=== PATIENT | female | born 1940 | race Caucasian/White ===

== ENCOUNTER 2021-12-19 05:42 | Inpatient (IN) ==
[2021-12-19] MEDS ORDERED: 0.9 % SODIUM CHLORIDE 1,000 ML IV ONE ×2 (05:49→06:06)
--- NOTE | 2021-12-19 06:16 | Emergency Department Note ---
Weakness HPI General Chief complaint: Weakness Stated complaint: weakness/COVID+ Time Seen by Provider: 12/19/21 05:45 Source: patient, family and EMS Mode of arrival: EMS Limitations: no limitations History of Present Illness HPI Narrative: Narrative: Patient presents ED via EMS with complaints of worsening weakness over the last 24 hours. Patient was diagnosed with COVID-19 4 days ago. Since that time she has been on Paxlovid that was prescribed by her PCP. states that she has been eating and drinking less over the last 2 days. Initially she was able to ambulate about the house with her walker which is her baseline but yesterday afternoon she was so weak that she could not even get up out of bed to go to the restroom due to weakness in her legs. He denies fever, chills, nausea, vomiting, abdominal pain, diarrhea, constipation, dysuria, hematuria, urinary frequency, cardiac chest pain, heart palpitation, shortness of breath, sputum production. Patient does report a cough. She states she does not feel as strong. says that she does not seem like her self she is very slow to respond and takes a while to answer questions. He states she does answer them correctly but she is just so slow and weak. denies any other alleviating or aggravating factors. Patient that he has not been given any medication such as Tylenol or ibuprofen as she has not needed it. Related Data Home Medications Medication Instructions Recorded Confirmed calcium carbonate-vitamin D3 600 1 tab PO DAILY 01/26/17 08/10/20 mg-125 unit tablet hydrochlorothiazide 12.5 mg tablet 12.5 mg PO QAM 08/10/20 08/10/20 losartan 25 mg tablet 25 mg PO QDAY 08/10/20 08/10/20 Previous Rx's Medication Instructions Recorded potassium chloride 10 mEq 10 meq PO QDAY #90 tabs 08/24/17 tablet,extended release(part/cryst) levothyroxine 50 mcg tablet 50 mcg PO QDAY #90 tabs 03/01/18 diltiazem HCl 240 mg capsule,24 240 mg PO QDAY hypertension #90 03/04/18 hr,extended release caps Allergies Allergy/AdvReac Type Severity Reaction Status Date / Time clindamycin AdvReac Unknown Unknown Verified 09/27/21 18:08 Review of Systems ROS ROS Narrative: Narrative: All systems ED: reviewed and negative except as stated. PFSH Narrative Patient History Narrative: Narrative: Medical/Surgical/Family History All Active Problems (Updated 12/19/21 @ 07:34 by Tahir Blakely DO) Hypertensive urgency (Acute) Acute hyponatremia (Acute) Acute hyponatremia (Acute) Acute hypokalemia (Acute) Acute alteration in mental status (Acute) Generalized weakness (Acute) COVID-19 virus infection (Acute) Acute dehydration (Acute) UTI (urinary tract infection) (Acute) Angular cheilitis (Acute) Seborrheic keratosis (Chronic) Edema extremities (Chronic) Strain of foot, right (Acute) Stucco keratoses (Chronic) Actinic keratoses (Acute) Hypokalemia with normal acid-base balance (Acute) Hypokalemia due to loss of potassium (Acute) Edema (Chronic) Folliculitis (Acute) Fibroma of left foot (Chronic) Sleep apnea (Chronic) Hypothyroidism, acquired (Chronic) Hypertension, essential (Chronic) Hyperlipidemia (Chronic) Malignant neoplasm (Chronic) Medical History Acute sinusitis hx of Malignant neoplasm of maxillary sinus 1997, sinus surgery fall 2016 Closed tibial fracture 08/11/14-Rama Mooney, PRESSING MACHINE TENDER-Tibial Plateau fracture Epistaxis 07/29/14-Recurrent ER Visits Epistaxis Epistaxis Fibroma of left lower leg heat, gentle stretch, leave alone Fracture of metatarsal bone, closed 08/11/14-Rama Mooney, PRESSING MACHINE TENDER-5th Metatarsal fracture Hyperlipidemia Hypertension, essential Hypothyroidism, acquired 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 and got a clear check up this year, as recorded on 03/11/09 Osteoarthrosis Hand Sleep apnea UTI (urinary tract infection) Family History mother Malignant neoplasm of cervix daughter Depression Migraine sister Diabetes mellitus Fibromyalgia Cardiac disease Obesity Social History Alcohol Intake Frequency: does not drink Substance Use: does not use Exam Narrative Narrative: Narrative: General Limitations: no limitations General appearance: Present alert and lethargic ENT ENT: Present mucous membranes dry Neck Neck: Present full ROM and meningismus Respiratory Respiratory: Present normal lung sounds bilaterally; Absent respiratory distress, rales/crackles, wheezes, stridor or accessory muscle use Cardiovascular Cardiovascular: Present regular rate and normal rhythm Adbominal Abdominal: Present soft; Absent tenderness Extremities Extremities: Present normal capillary refill Neurological Neurological: Present oriented X3 and other (Slow but appropriate responses) Psychiatric Psychiatric: Present flat affect and poor eye contact Skin Skin: Present warm (WNL) and intact Course Course Course Narrative: Patient was evaluated for generalized weakness and some altered mental status. CT of the head was obtained with no acute findings. UA was unremarkable. All patient was alert and answer questions appropriately she did have slow responses and patient's states that that is not her baseline. Labs revealed that patient was severely hyponatremic with a sodium level 105. She was also hypokalemic and clinically dehydrated. She was bolused 1 L of fluids and iv potassium. Due to patient's weakness Marquez catheter was inserted. EKG was unremarkable. Chest x-ray is unremarkable. Case discussed with hospitalist who has graciously accepted patient to the hospital. Plan discussed with pt and her who expressed verbal understanding and aggreement of plan. Reevaluation(s) Reevaluation #1: Patient remains hemodynamically stable. No new complaints at this time Time: 06:50 Consultations Consultation #1: Case discussed with hospitalist who has agreed to admit the patient Time: 08:12 Vital Signs Vital signs: Vital Signs Temperature 98.2 F 12/19/21 05:44 Pulse Rate 69 12/19/21 05:44 Respiratory Rate 17 12/19/21 05:44 Blood Pressure 170/79 12/19/21 05:44 Pulse Oximetry (%) 98 12/19/21 05:44 Oxygen Delivery Method 12/19/21 05:44 Temperature 98.2 F 12/19/21 05:44 Pulse Rate 66 12/19/21 07:38 Respiratory Rate 17 12/19/21 05:44 Blood Pressure 155/78 12/19/21 07:38 Pulse Oximetry (%) 96 12/19/21 07:38 Oxygen Delivery Method 12/19/21 05:44 MDM MDM Narrative Medical decision making narrative: Narrative: Sepsis Sepsis Identified: No Differential Diagnosis Differential Diagnosis: Generalized weakness, COVID-19 infection Medical Records Medical records reviewed: Yes I reviewed the patient's medical records. Lab Data Lab results reviewed: Yes I reviewed the patient's lab results. Result diagrams: 12/19/21 06:27 12/19/21 06:42 Labs: Lab Results 12/19/21 12/19/21 12/19/21 Range/Units 06:27 06:28 06:29 WBC 2.9 L (4.5-11.0) K/mcL RBC 3.79 (3.59-5.38) M/mcL Hgb 12.6 (11.2-15.7) g/dL Hct 33.8 L (34.1-44.9) % POC Hct 40.0 (36-48) MCV 89.2 (80.0-100.0) fL MCH 33.2 (26.0-34.0) pg MCHC 37.3 H (31.0-36.0) g/dL RDW 17.1 H (11.5-14.5) % Plt Count 97 L (140-440) K/mcL MPV 10.5 (8.8-12.5) fL Immature Gran % (Auto) 1.0 H (0.0-0.5) % Neut % (Auto) 37.3 L (38.0-78.0) % Lymph % (Auto) 32.4 (15.5-49.0) % [place] % (Auto) 29.0 H (1.0-12.0) % Eos % (Auto) 0 (0.0-7.0) % Baso % (Auto) 0.3 (0.0-2.0) % Lymph # (Auto) 0.94 L (1.50-4.80) K/mcL [place] # (Auto) 0.84 (0.10-0.90) K/mcL Eos # (Auto) 0 (0.00-0.70) K/mcL Baso # (Auto) 0.01 (0.00-0.30) K/mcL Immature Gran # 0.03 (0.00-0.05) K/mcl Absolute Neutrophils 1.08 L (1.80-8.00) K/mcL POC VBG pH (7.32-7.42) POC VBG pCO2 at Temp (41-51) POC VBG pO2 (25-40) POC VBG HCO3 (24-28) POC VBG Total CO2 (25-29) POC Venous O2 Sat (40-70) POC VBG Base Excess (-2-2) VBG Lactic Acid (0.5-2) POC Sodium 105 L* (133-145) Sodium (133-145) mmol/L POC Potassium 2.6 L* (3.3-5.1) Potassium (3.3-5.1) mmol/L POC Chloride 71 L (96-108) Chloride (96-108) mmol/L Carbon Dioxide (22-30) mmol/L POC Total CO2 25.0 (22-30) Anion Gap (8.0-16.0) POC BUN 7 (6-20) BUN (8-23) mg/dL Creatinine (0.6-1.1) mg/dL POC Creatinine 0.3 L (0.6-1.2) GFR Calculation Glucose (70-105) mg/dL POC Glucose 99 (70-105) Calcium (8.6-10.4) mg/dL POC WB Ioniz Calcium 0.83 L (1.16-1.32) Magnesium (1.6-2.5) mg/dL Total Bilirubin 1.0 (0.1-1.0) mg/dL Direct Bilirubin 0.3 H (<0.3) mg/dL AST 40 H (<32) U/L ALT 21 (<40) U/L Alkaline Phosphatase 52 (39-117) U/L Total Protein 6.8 (5.9-8.4) gm/dL Albumin 4.1 (3.2-5.2) gm/dL Globulin 2.7 (2.2-3.7) gm/dL 12/19/21 12/19/21 12/19/21 Range/Units 06:31 06:42 07:31 WBC (4.5-11.0) K/mcL RBC (3.59-5.38) M/mcL Hgb (11.2-15.7) g/dL Hct (34.1-44.9) % POC Hct (36-48) MCV (80.0-100.0) fL MCH (26.0-34.0) pg MCHC (31.0-36.0) g/dL RDW (11.5-14.5) % Plt Count (140-440) K/mcL MPV (8.8-12.5) fL Immature Gran % (Auto) (0.0-0.5) % Neut % (Auto) (38.0-78.0) % Lymph % (Auto) (15.5-49.0) % [place] % (Auto) (1.0-12.0) % Eos % (Auto) (0.0-7.0) % Baso % (Auto) (0.0-2.0) % Lymph # (Auto) (1.50-4.80) K/mcL [place] # (Auto) (0.10-0.90) K/mcL Eos # (Auto) (0.00-0.70) K/mcL Baso # (Auto) (0.00-0.30) K/mcL Immature Gran # (0.00-0.05) K/mcl Absolute Neutrophils (1.80-8.00) K/mcL POC VBG pH 7.59 H (7.32-7.42) POC VBG pCO2 at Temp 26.3 L (41-51) POC VBG pO2 67 H (25-40) POC VBG HCO3 25.2 (24-28) POC VBG Total CO2 26.0 (25-29) POC Venous O2 Sat 96.0 H (40-70) POC VBG Base Excess 4.0 H* (-2-2) VBG Lactic Acid 0.9 (0.5-2) POC Sodium (133-145) Sodium 105 L* (133-145) mmol/L POC Potassium (3.3-5.1) Potassium 2.6 L* (3.3-5.1) mmol/L POC Chloride (96-108) Chloride 68 L (96-108) mmol/L Carbon Dioxide 21 L (22-30) mmol/L POC Total CO2 (22-30) Anion Gap 16.0 (8.0-16.0) POC BUN (6-20) BUN 7 L (8-23) mg/dL Creatinine 0.4 L (0.6-1.1) mg/dL POC Creatinine (0.6-1.2) GFR Calculation 99 Glucose 97 (70-105) mg/dL POC Glucose (70-105) Calcium 7.6 L (8.6-10.4) mg/dL POC WB Ioniz Calcium (1.16-1.32) Magnesium 1.9 (1.6-2.5) mg/dL Total Bilirubin (0.1-1.0) mg/dL Direct Bilirubin (<0.3) mg/dL AST (<32) U/L ALT (<40) U/L Alkaline Phosphatase (39-117) U/L Total Protein (5.9-8.4) gm/dL Albumin (3.2-5.2) gm/dL Globulin (2.2-3.7) gm/dL Radiology Data Radiology results reviewed: Yes I reviewed the patient's radiology results. Radiology results narrative: Chest x-ray, I agree with radiologist interpretation CT of the head, I agree with radiologist interpretation EKG Data EKG #1: EKG attestation: Yes I reviewed and interpreted this EKG. EKG shows normal: sinus rhythm Rate: normal Rhythm: NSR [place]/QRS: normal Heart block present: None ST segment elevation in: None ST segment depression in: None QTc: normal QRS morphology: Present normal Interpretation: no acute changes Core Measures AMI Core Measures Followed: Yes Discharge Plan Patient/Caregiver Discharge Instructions Pt seen by WOODEN TANK ERECTOR/PA only: No Clinical Impression: Acute hyponatremia, Acute hypokalemia, Acute alteration in mental status, Generalized weakness, COVID-19 virus infection, Acute dehydration Patient Disposition: Xfer As Outpt/Obs ([facility]) Condition: Fair Follow up with: Gerson Cuenca MD [Primary Care Provider] - Prescriptions: No Action potassium chloride 10 mEq tablet,ER particles/crystals 10 meq PO QDAY Qty: 90 3RF levothyroxine 50 mcg tablet 50 mcg PO QDAY Qty: 90 3RF diltiazem HCl 240 mg capsule,extended release 24 hr 240 mg PO QDAY Qty: 90 3RF losartan 25 mg tablet 25 mg PO QDAY hydrochlorothiazide 12.5 mg tablet 12.5 mg PO QAM calcium carbonate-vitamin D3 1 EACH tablet 1 tab PO DAILY
[2021-12-19 06:33] LABS: POC Calcium, Ionized 0.83 (1.16-1.32); POC Creatinine 0.3 (0.6-1.2); POC Potassium 2.6 (3.3-5.1)
[2021-12-19 07:27] LABS: ALT/SGPT 21 U/L (<40); AST/SGOT 40 U/L (<32); Albumin 4.1 gm/dL (3.2-5.2); Alkaline Phosphatase 52 U/L (39-117); Bilirubin,Direct 0.3 mg/dL (<0.3); Globulin 2.7 gm/dL (2.2-3.7)
[2021-12-19 07:30] LABS: Blood Urea Nitrogen 7 mg/dL (8-23); Calcium 7.6 mg/dL (8.6-10.4); Carbon Dioxide 21 mmol/L (22-30); Chloride 68 mmol/L (96-108); Glomerular Filtration Rate 99; Glucose 97 mg/dL (70-105)
[2021-12-19 07:51] LABS: Basophils # (Auto) 0.01 K/mcL (0.00-0.30); Basophils % (Auto) 0.3 % (0.0-2.0); Eosinophils # (Auto) 0 K/mcL (0.00-0.70); Eosinophils % (Auto) 0 % (0.0-7.0); Hematocrit 33.8 % (34.1-44.9); Hemoglobin 12.6 g/dL (11.2-15.7); Lymphocytes # (Auto) 0.94 K/mcL (1.50-4.80); Lymphocytes % (Auto) 32.4 % (15.5-49.0); Mean Cell Volume 89.2 fL (80.0-100.0); Mean Corpuscular HGB Conc 37.3 g/dL (31.0-36.0); Mean Platelet Volume 10.5 fL (8.8-12.5); Monocytes # (Auto) 0.84 K/mcL (0.10-0.90); Neutrophils % (Auto) 37.3 % (38.0-78.0); Platelet Count 97 K/mcL (140-440); RBC 3.79 M/mcL (3.59-5.38); Red Cell Distribution Width 17.1 % (11.5-14.5); WBC 2.9 K/mcL (4.5-11.0)
[2021-12-19] MEDS ORDERED: POTASSIUM CHLORIDE 40 MEQ in DEXTROSE 5% IN WATER 500 ML IV ONE (07:53)
--- NOTE | 2021-12-19 07:53 | EKG ---
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
--- NOTE | 2021-12-19 07:56 | Cat Scan Report ---
History: Altered mental status TECHNIQUE: The brain was imaged without contrast in axial plane at 2.5 mm intervals. Sagittal and coronal reformats were created. The radiation exposure was limited using dose reduction technology. FINDINGS: There is mild generalized cerebral atrophy. Ill-defined zones of decreased attenuation are present in the centrum semiovale within the frontal and parietal lobes. This consistent with age-related ischemia or degeneration. There is no evidence of an infarct, hemorrhage or mass. No abnormal extra-axial fluid collection is present. In the suprasellar cistern there is a tubular shaped structure which could be an aneurysm arising from the basilar tip or the supraclinoid portion of the left internal carotid. There is no associated subarachnoid hemorrhage. The right maxillary sinus is nearly completely opacified and there is an air-fluid level. There is also moderate consolidation with air-fluid levels in both frontal sinuses. This has become worse since prior sinus CT done on 09-12. Previously there was severe left maxillary sinusitis, which has resolved. 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 Severe right maxillary and moderate bilateral frontal sinusitis Dr. Blakely was called with the report Interpreted and Authenticated by: Gerry Camara 12/19/21
--- NOTE | 2021-12-19 07:59 | XRay Report ---
HISTORY: Increased weakness, Covid positive FINDINGS: The lungs are clear. The heart, mediastinum, peter and pleura are normal. There has been no significant change since 09/27/21. IMPRESSION: Normal chest. Interpreted and Authenticated by: Gerry Camara 12/19/21
--- NOTE | 2021-12-19 10:33 | Internal Med History&Physical ---
HPI History of Present Illness Patient information: Note initiated : 12/19/21 at 10:30 am Service Date, if different from initiated Date: [] Patient: Amna Wei a 81 y/o F admitted on 12/19/21 for weakness/COVID+. Chief Complaint: [] History of present illness: Ms. Wei is a 81 year old F Presents ED with increasing weakness poor appetite. Patient not eating and drinking very well. Per family she also has some very mild confusion more so is lethargic and drowsy.. Extremely weak she could not get out of bed. Patient diagnosed with COVID several days ago and was prescribed Paxilovid. Chest x-ray in the ED unremarkable. CT showed age-related degenerative changes in the brain. In the ED she was found found to have a potassium of 2.6 and sodium 105 with a hypochloridemia as well. Leukopenia mild thrombocytopenia. Lactic acid unremar kable. Potential culprit medications for hyponatremia could be the hydrochlorothiazide she is on She denies any nausea vomiting or diarrhea. No chest pain. She has a very mild nonproductive cough but denies shortness of breath. She appeared to be dry on a presentation was given IV fluid boluses in the ED. Review of Systems: Pertinent positive as above. Denies headache/fever/chills/nausea/vomiting/chest or abdominal pain/dyspnea/diarrhea. Remaining 10 point review of system reviewed negative PFSH PFSH All Active Problems (Updated 12/19/21 @ 07:34 by Tahir Blakely DO) Hypertensive urgency (Acute) Acute hyponatremia (Acute) Acute hyponatremia (Acute) Acute hypokalemia (Acute) Acute alteration in mental status (Acute) Generalized weakness (Acute) COVID-19 virus infection (Acute) Acute dehydration (Acute) UTI (urinary tract infection) (Acute) Angular cheilitis (Acute) Seborrheic keratosis (Chronic) Edema extremities (Chronic) Strain of foot, right (Acute) Stucco keratoses (Chronic) Actinic keratoses (Acute) Hypokalemia with normal acid-base balance (Acute) Hypokalemia due to loss of potassium (Acute) Edema (Chronic) Folliculitis (Acute) Fibroma of left foot (Chronic) Sleep apnea (Chronic) Hypothyroidism, acquired (Chronic) Hypertension, essential (Chronic) Hyperlipidemia (Chronic) Malignant neoplasm (Chronic) Medical History Acute sinusitis hx of Malignant neoplasm of maxillary sinus 1997, sinus surgery fall 2016 Closed tibial fracture 08/11/14-Rama Mooney, HOME MORTGAGE DISCLOSURE ACT SPECIALIST-Tibial Plateau fracture Epistaxis 07/29/14-Recurrent ER Visits Epistaxis Epistaxis Fibroma of left lower leg heat, gentle stretch, leave alone Fracture of metatarsal bone, closed 08/11/14-Rama Mooney, HOME MORTGAGE DISCLOSURE ACT SPECIALIST-5th Metatarsal fracture Hyperlipidemia Hypertension, essential Hypothyroidism, acquired 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 and got a clear check up this year, as recorded on 03/11/09 Osteoarthrosis Hand Sleep apnea UTI (urinary tract infection) Family History mother Malignant neoplasm of cervix daughter Depression Migraine sister Diabetes mellitus Fibromyalgia Cardiac disease Obesity Social History alcohol intake frequency: does not drink substance use type: does not use MEDS/ALLERGIES Home Medications and Allergies Home Medications Medication Instructions Recorded Confirmed Type calcium carbonate-vitamin D3 600 1 tab PO DAILY 01/26/17 08/10/20 History mg-125 unit tablet potassium chloride 10 mEq 10 meq PO QDAY #90 tabs 08/24/17 08/10/20 Rx tablet,extended release(part/cryst) levothyroxine 50 mcg tablet 50 mcg PO QDAY #90 tabs 03/01/18 08/10/20 Rx diltiazem HCl 240 mg capsule,24 240 mg PO QDAY hypertension #90 03/04/18 08/10/20 Rx hr,extended release caps hydrochlorothiazide 12.5 mg tablet 12.5 mg PO QAM 08/10/20 08/10/20 History losartan 25 mg tablet 25 mg PO QDAY 08/10/20 08/10/20 History Allergies Allergy/AdvReac Type Severity Reaction Status Date / Time clindamycin AdvReac Unknown Unknown Verified 09/27/21 18:08 EXAM Constitutional Vitals: Temp Pulse Resp BP Pulse Ox O2 Del Method 98.1 F 72 20 159/80 95 12/19/21 10:10 12/19/21 10:10 12/19/21 10:10 12/19/21 10:10 12/19/21 10:10 12/19/21 05:44 Exam: General: Drowsy, No acute Distress Eyes/N/T: EOMI, PERRL, dry MM Head/Neck: neck supple, normocephalic atraumatic CV: RRR, No murmurs, normal s1/s2 Pulm: Clear b/l, no wheezing/rhonchi/rales Abd: soft, nontender, +BS x4 Ext: no clubbing/cyanosis, mild nonpitting edema Neuro: Lethargic, answering questions appropriately but very slowly, no focal deficits, moves all extremities, sensations intact b/l upper/lower Skin: warm/dry DATA Data Completed and Pending Labs: Labs from last 24 hours 12/19/21 12/19/21 12/19/21 07:31 06:42 06:31 WBC RBC Hgb Hct POC Hct MCV MCH MCHC RDW Plt Count MPV Immature Gran % (Auto) Neut % (Auto) Lymph % (Auto) [place] % (Auto) Eos % (Auto) Baso % (Auto) Lymph # (Auto) [place] # (Auto) Eos # (Auto) Baso # (Auto) Immature Gran # Absolute Neutrophils POC VBG pH 7.59 H POC VBG pCO2 at Temp 26.3 L POC VBG pO2 67 H POC VBG HCO3 25.2 POC VBG Total CO2 26.0 POC Venous O2 Sat 96.0 H POC VBG Base Excess 4.0 H* VBG Lactic Acid 0.9 POC Sodium Sodium 105 L* POC Potassium Potassium 2.6 L* POC Chloride Chloride 68 L Carbon Dioxide 21 L POC Total CO2 Anion Gap 16.0 POC BUN BUN 7 L Creatinine 0.4 L POC Creatinine GFR Calculation 99 Glucose 97 POC Glucose Calcium 7.6 L POC WB Ioniz Calcium Magnesium 1.9 Total Bilirubin Direct Bilirubin AST ALT Alkaline Phosphatase Total Protein Albumin Globulin 12/19/21 12/19/21 12/19/21 06:29 06:28 06:27 WBC 2.9 L RBC 3.79 Hgb 12.6 Hct 33.8 L POC Hct 40.0 MCV 89.2 MCH 33.2 MCHC 37.3 H RDW 17.1 H Plt Count 97 L MPV 10.5 Immature Gran % (Auto) 1.0 H Neut % (Auto) 37.3 L Lymph % (Auto) 32.4 [place] % (Auto) 29.0 H Eos % (Auto) 0 Baso % (Auto) 0.3 Lymph # (Auto) 0.94 L [place] # (Auto) 0.84 Eos # (Auto) 0 Baso # (Auto) 0.01 Immature Gran # 0.03 Absolute Neutrophils 1.08 L POC VBG pH POC VBG pCO2 at Temp POC VBG pO2 POC VBG HCO3 POC VBG Total CO2 POC Venous O2 Sat POC VBG Base Excess VBG Lactic Acid POC Sodium 105 L* Sodium POC Potassium 2.6 L* Potassium POC Chloride 71 L Chloride Carbon Dioxide POC Total CO2 25.0 Anion Gap POC BUN 7 BUN Creatinine POC Creatinine 0.3 L GFR Calculation Glucose POC Glucose 99 Calcium POC WB Ioniz Calcium 0.83 L Magnesium Total Bilirubin 1.0 Direct Bilirubin 0.3 H AST 40 H ALT 21 Alkaline Phosphatase 52 Total Protein 6.8 Albumin 4.1 Globulin 2.7 A/P Narrative A/P Narrative: A: *Hyponatremia, severe, acute on chronic: -Hyponatremia work-up in progress *Hypokalemia/hypochloremia: *mild met acidosis: *Encephalopathy (lethargy): 2/2 above *COVID infection: On room air, continue home paxlovid *Leukopenia: likely viral from covid *Thrombocytopenia: suspect from viral infection *HTN: *Hypothyroidism: TSH P: -stat Na lab f/u -DDAVP / 3% until reaches 125 -Serial sodium monitoring -check tsh/cortisol -Urine osmol/Na, serum osm -d/c HCTZ -Replete electrolytes -cont home dilt/arb -PT/OT -Home medication reconciliation -ppx: Lovenox Full code Time Spent With Patient Time: Total time spent is greater than 50% in coordination of care (as documented) at patient's floor/unit and/or counseling patient: Total time spent with greater than 50% in coordination of care (as documented) at patient's floor/unit and/or counseling patient:: Greater than 70 minutes
[2021-12-19] MEDS ORDERED: SENNOSIDES 1 TABLET PO PRN (10:50)
[2021-12-19] MEDS ORDERED: POTASSIUM CHLORIDE 40 MEQ in DEXTROSE 5% IN WATER 500 ML IV PRN (10:50)
[2021-12-19] MEDS ORDERED: POTASSIUM CHLORIDE 20 MEQ TABLET PO PRN ×2 (10:50)
[2021-12-19] MEDS ORDERED: SODIUM CHLORIDE 3 % 500 ML IV ONE (10:50)
[2021-12-19] MEDS ORDERED: IPRATROPIUM/ALBUTEROL 3 ML AMPUL.NEB NEB PRN (10:50)
[2021-12-19] MEDS ORDERED: POLYETHYLENE GLYCOL 3350 17 GM PACKET PO PRN (10:50)
[2021-12-19] MEDS ORDERED: MAGNESIUM SULFATE 2 GM/50 ML BAG IV PRN (10:50)
[2021-12-19] MEDS ORDERED: ONDANSETRON 4 MG/2 ML VIAL IV PRN (10:50)
[2021-12-19 11:24] LABS: POC Calcium, Ionized 0.88 (1.16-1.32); POC Creatinine 0.3 (0.6-1.2); POC Potassium 2.4 (3.3-5.1)
[2021-12-19] MEDS: DESMOPRESSIN ACETATE 1 MCG in 0.9 % SODIUM CHLORIDE 50 ML IV SCH ×3 (11:37→23:28)
[2021-12-19] MEDS: 0.9 % SODIUM CHLORIDE 10 ML SYRINGE IV SCH ×3 (11:38→21:18)
[2021-12-19 12:12] LABS: Uric Acid 1.2 mg/dL (2.5-8.0)
[2021-12-19 13:18] LABS: Appearance,Urine CLEAR (Clear); Bilirubin,Urine Negative (Negative); Color,Urine STRAW; Culture Indicated,Urine No; Glucose,Urine (UA) Negative (Negative); Ketones,Urine Negative (Negative); Leukocyte Esterase,Urine Negative /uL (Negative); Nitrate,Urine Negative (Negative); Protein,Urine 100 mg/dL (Negative); Specific Gravity,Urine 1.005 (1.000-1.035); Urine Blood 0.03 mg/dL (Negative); Urine Hyaline Cast 1 /lph (0-2); Urine RBC 3 /hpf (0-3); Urine Squamous Epithelial Cell 0 /hpf (0-4); Urine WBC 2 /hpf (0-4); Urobilinogen,Urine Negative
--- NOTE | 2021-12-19 14:17 | Nephrology Consult Note ---
HPI Data of Consult Consult date: 12/19/21 Requesting physician: Neo Page Primary Care Provider: Gerson Cuenca Consult Narrative Chief complaint: Confusion Reason for consult: Hyponatremia History of present illness: Amna Wei is a 81-year-old female brought to ED by EMS for worsening weakness over the last 24 hours. She was diagnosed with COVID-19 4 days ago. Since that time she has been on Paxlovid that was prescribed by her PCP. In ED, her serum sodium was 105. She was given 2 L NS and admitted to ICU. Her repeat POC serum sodium was 109 after 5 hours. Nephrology consultation was requested for hyponatremia. cc:: CC: Hernandez Nelson Constitutional Constitutional: Present lethargy and malaise Cardiovascular Cardiovascular: Absent chest pain Respiratory Respiratory: Absent wheezing Gastrointestinal Gastrointestinal: Absent diarrhea or nausea Genitourinary Genitourinary: Absent hematuria Musculoskeletal Musculoskeletal: Present muscle weakness Integumentary Integumentary: Absent wounds Neurological Neurological: Present weakness Psychiatric Psychiatric: Absent anxiety or panic attacks Hematologic/Lymphatic Hematologic/Lymphatic: Absent easy bleeding or easy bruising Allergic/Immunologic Allergic/Immunologic: Absent tongue swelling or uticaria PFSH PFSH All Active Problems (Updated 12/19/21 @ 14:19 by Jw Escamilla MD) Hyponatremia (Chronic) Hypertensive urgency (Acute) Acute hyponatremia (Acute) Acute hyponatremia (Acute) Acute hypokalemia (Acute) Acute alteration in mental status (Acute) Generalized weakness (Acute) COVID-19 virus infection (Acute) Acute dehydration (Acute) UTI (urinary tract infection) (Acute) Angular cheilitis (Acute) Seborrheic keratosis (Chronic) Edema extremities (Chronic) Strain of foot, right (Acute) Stucco keratoses (Chronic) Actinic keratoses (Acute) Hypokalemia with normal acid-base balance (Acute) Hypokalemia due to loss of potassium (Acute) Edema (Chronic) Folliculitis (Acute) Fibroma of left foot (Chronic) Sleep apnea (Chronic) Hypothyroidism, acquired (Chronic) Hypertension, essential (Chronic) Hyperlipidemia (Chronic) Malignant neoplasm (Chronic) Medical History Acute sinusitis hx of Malignant neoplasm of maxillary sinus 1997, sinus surgery fall 2016 Closed tibial fracture 08/11/14-Rama Mooney, [place]-Tibial Plateau fracture Epistaxis 07/29/14-Recurrent ER Visits Epistaxis Epistaxis Fibroma of left lower leg heat, gentle stretch, leave alone Fracture of metatarsal bone, closed 08/11/14-Rama Mooney, [place]-5th Metatarsal fracture Hyperlipidemia Hypertension, essential Hypothyroidism, acquired 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 and got a clear check up this year, as recorded on 03/11/09 Osteoarthrosis Hand Sleep apnea UTI (urinary tract infection) Family History mother Malignant neoplasm of cervix daughter Depression Migraine sister Diabetes mellitus Fibromyalgia Cardiac disease Obesity Social History smoking status: Never smoker alcohol intake frequency: does not drink substance use type: does not use MEDS/ALLERGIES Home Medications and Allergies Home Medications Medication Instructions Recorded Confirmed Type calcium carbonate-vitamin D3 600 1 tab PO DAILY 01/26/17 12/19/21 History mg-125 unit tablet potassium chloride 10 mEq 10 meq PO QDAY #90 tabs 08/24/17 12/19/21 Rx tablet,extended release(part/cryst) levothyroxine 50 mcg tablet 50 mcg PO QDAY #90 tabs 03/01/18 12/19/21 Rx benzonatate 200 mg capsule 200 mg PO TID 12/19/21 12/19/21 History diltiazem HCl 240 mg capsule,24 240 mg PO QHS hypertension 12/19/21 12/19/21 History hr,extended release latanoprost 0.005 % eye drops 1 drp ophthalmic (eye) QHS 12/19/21 12/19/21 H istory losartan 100 1 tab PO QDAY 12/19/21 12/19/21 History mg-hydrochlorothiazide 12.5 mg tablet nirmatrelvir 300 mg (150 mg 3 tab PO BID 12/19/21 12/19/21 History x2)-ritonavir 100 mg tablet,dose pack(EUA) (Paxlovid) Allergies Allergy/AdvReac Type Severity Reaction Status Date / Time clindamycin AdvReac Unknown Unknown Verified 09/27/21 18:08 Physical Examination Vital Signs Vital signs: Temp Pulse Resp BP Pulse Ox O2 Del Method 97.8 F 65 16 158/76 95 12/19/21 12:01 12/19/21 12:08 12/19/21 12:08 12/19/21 12:01 12/19/21 12:08 12/19/21 10:12 General Appearance General appearance: fatigue EENT EENT: mucous membranes dry Cardiovascular Cardiology: no edema Gastrointestinal Gastrointestinal: no tenderness Integumentary Integumentary: no rash Neurologic Neurologic: alert and oriented x3 Musculoskeletal Musculoskeletal: no deformities Psychiatric Psychiatric: mood/affect appropriate and cooperative Results Lab Results Result Diagrams: 12/19/21 06:27 12/19/21 06:42 Lab results: Most recent lab results Calcium 7.6 mg/dL (8.6-10.4) L 12/19/21 06:42 Magnesium 1.9 mg/dL (1.6-2.5) 12/19/21 07:31 A/P Assessment and plan (1) Hyponatremia: Assessment and plan: Amna Wei is a 81-year-old female brought to ED by EMS for worsening weakness over the last 24 hours. She was diagnosed with COVID-19 4 days ago. Since that time she has been on Paxlovid that was prescribed by her PCP. In ED, her serum sodium was 105. She was given 2 L NS and admitted to ICU. Her repeat POC serum sodium was 109 after 5 hours. Nephrology consultation was requested for hyponatremia. Hyponatremia, hypoosmolar, euvolemic, severe (<120), likely chronic (>48 hours), symptomatic (lethargy, confusion), associated with medications (thiazide diuretic) and covid infection. Work up: Urinalysis on 12/19/21: Straw, Clear, pH 8.0, SG 1.005, protein 100, blood 0.03, leukocyte esterase negative, urine WBC. CXR on 12/19/21: Normal. CT [place] 12/19/21: Normal age-related degenerative changes in the brain. 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 Severe right maxillary and moderate bilateral frontal sinusitis. Urine Osmolality, Urine Sodium pending. RECOMMENDATIONS AND PLAN: Monitor serum sodium frequently. Target serum sodium elevation: <4-6 mEq/L/24 hours. An extra 4-6 mEq/L correction in the first 6 hours may be considered for acute hyponatremia (onset less than 48 hours) with symptoms. Goal serum sodium of >130 mEq/L. Consider DDAVP for prevention of rapid correction. Consider transfer to higher level of care. Status: Chronic Time Spent With Patient Time: Total time spent is greater than 50% in coordination of care (as documented) at patient's floor/unit and/or counseling patient:
[2021-12-19 14:18] LABS: Sodium, Urine Random 76 mmol/L
[2021-12-19 15:07] LABS: POC Calcium, Ionized 0.91 (1.16-1.32); POC Creatinine 0.4 (0.6-1.2); POC Potassium 2.6 (3.3-5.1)
[2021-12-19 15:20] LABS: Osmolality,Urine 278 mOSM/kg (80-1000)
[2021-12-19] MEDS: POTASSIUM CHLORIDE 20 MEQ TABLET PO SCH (17:10)
[2021-12-19 20:19] LABS: POC Calcium, Ionized 0.93 (1.16-1.32); POC Creatinine 0.4 (0.6-1.2); POC Potassium 3.2 (3.3-5.1)
[2021-12-19] MEDS: DILTIAZEM 240 MG CAP.XL.24H PO SCH (21:11)
[2021-12-19] MEDS: DOCUSATE SODIUM 100 MG CAPSULE PO SCH (21:11)
[2021-12-19] MEDS: NIRMATRELVIR/RITONAVIR 1 EACH BOX PO SCH (21:12)
[2021-12-19] MEDS: LATANOPROST OPHTH DROPS 2.5ML BOTTLE OU SCH (21:18)
[2021-12-19] MEDS ORDERED: 0.9 % SODIUM CHLORIDE 500 ML IV ONE (23:15)
[2021-12-20] MEDS: DESMOPRESSIN ACETATE 1 MCG in 0.9 % SODIUM CHLORIDE 50 ML IV SCH (05:06)
[2021-12-20] MEDS: 0.9 % SODIUM CHLORIDE 10 ML SYRINGE IV SCH ×3 (05:19→20:48)
[2021-12-20 05:33] LABS: POC Blood Urea Nitrogen 4 (6-20); POC Chloride 75 (96-108); POC Creatinine < 0.2 (0.6-1.2); POC Glucose, Random 103 (70-105); POC Potassium 3.7 (3.3-5.1); POC Sodium 107 (133-145)
[2021-12-20 07:02] LABS: Basophils # (Auto) 0.01 K/mcL (0.00-0.30); Basophils % (Auto) 0.2 % (0.0-2.0); Eosinophils # (Auto) 0.01 K/mcL (0.00-0.70); Eosinophils % (Auto) 0.2 % (0.0-7.0); Hematocrit 35.1 % (34.1-44.9); Lymphocytes # (Auto) 0.76 K/mcL (1.50-4.80); Lymphocytes % (Auto) 18.8 % (15.5-49.0); Mean Cell Volume 90.9 fL (80.0-100.0); Mean Platelet Volume 9.3 fL (8.8-12.5); Monocytes # (Auto) 0.99 K/mcL (0.10-0.90); Monocytes % (Auto) 24.5 % (1.0-12.0); Neutrophils % (Auto) 55.1 % (38.0-78.0); Platelet Count 90 K/mcL (140-440); RBC 3.86 M/mcL (3.59-5.38); Red Cell Distribution Width 17.1 % (11.5-14.5)
[2021-12-20 07:08] LABS: Phosphorous 1.1 mg/dL (2.5-4.5)
[2021-12-20 07:25] LABS: ALT/SGPT 21 U/L (<40); AST/SGOT 39 U/L (<32); Albumin 3.8 gm/dL (3.2-5.2); Albumin/Globulin Ratio 1.4 (1.0-2.3); Alkaline Phosphatase 51 U/L (39-117); Bilirubin,Total 1.3 mg/dL (0.1-1.0); Blood Urea Nitrogen 5 mg/dL (8-23); Calcium 7.4 mg/dL (8.6-10.4); Carbon Dioxide 21 mmol/L (22-30); Chloride 74 mmol/L (96-108); Globulin 2.7 gm/dL (2.2-3.7); Glomerular Filtration Rate 109; Glucose 97 mg/dL (70-105)
[2021-12-20] MEDS ORDERED: POTASSIUM CHLORIDE 10 MEQ TABLET PO SCH (08:00)
[2021-12-20] MEDS ORDERED: SODIUM CHLORIDE 1 GM TABLET PO ONE ×2 (08:18→13:55)
--- NOTE | 2021-12-20 08:27 | Nephrology Progress Note ---
SUBJECTIVE Subjective Patient information: Note initiated : 12/20/21 at 8:20 am Patient: Amna Wei 81 y/o F admitted on 12/19/21 for weakness/COVID+. Chief Complaint: Weakness Pertinent ROS: Weakness Alert and oriented x 3 Constitutional Vitals: Vital Signs Temp Pulse Resp BP Pulse Ox O2 Del Method O2 Flow Rate 97.6 F 67 18 116/50 98 0 12/20/21 02:01 12/20/21 08:01 12/20/21 08:01 12/20/21 08:01 12/20/21 08:01 12/20/21 06:01 12/20/21 06:01 Period Temp Pulse Resp BP Sys/Kern Pulse Ox O2 Del Method O2 Flow Rate Last 24 Hr 97.2 F-98.2 F 62-72 12-20 116-160/50-82 95-100 Room Air-Room Air 0 Intake and Output 12/19/21 12/20/21 12/20/21 21:59 05:59 13:59 Intake Total 530.25 960.50 Output Total 800 1250 Balance -269.75 -289.50 Weight 166 lb 6.4 oz Intake & Output: Intake & Output 12/19/21 12/20/21 12/20/21 21:59 05:59 13:59 Intake Total 530.25 960.50 Output Total 800 1250 Balance -269.75 -289.50 Weight 166 lb 6.4 oz Intake: IV 50.25 600.50 Sodium Chloride 0.9% 500 ml @ 500 100 mls/hr IV BOLUS ONE Rx#: [id number] Ddavp 1 Mcg In Sodium Chloride 50.25 100.50 0.9% 50 ml @ 200 mls/hr IV Q6H [facility] Rx#:[id number] Sodium Chloride 3% 500 ml @ 20 0 mls/hr IV ONCE ONE Rx#: [id number] Oral 480 360 Output: Urine Catheter Amount 800 1250 Other: Meal Lunch Percent of Meal Consumed 50% Feeding Ability Assist with Tray Set Up Urine Appearance Clear Marquez Clear Urine Color Yellow Marquez Yellow General appearance: cooperative and no acute distress Head Head exam: Present normal inspection Eye Eye exam: Present normal appearance ENT ENT exam: Present mucous membranes moist Respiratory Respiratory exam: Absent respiratory distress Cardiovascular Cardiovascular exam: Present normal rate and rhythm GI/Abdominal GI/Abdominal exam: Present soft; Absent tenderness Extremities Exam Extremities exam: Absent joint swelling or pedal edema Neurological Exam Neurological exam: Present alert and oriented X3 Psychiatric Psychiatric exam: Present normal affect and normal mood Skin Skin exam: Present warm; Absent rash A/P Assessment and plan (1) Hyponatremia: Assessment and plan: Amna Wei is a 81-year-old female brought to ED by EMS for worsening weakness over the last 24 hours. She was diagnosed with COVID-19 4 days ago. Since that time she has been on Paxlovid that was prescribed by her PCP. In ED, her serum sodium was 105. She was given 2 L NS and admitted to ICU. Her repeat POC serum sodium was 109 after 5 hours. Nephrology consultation was requested for hyponatremia. 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 WORKUP Urinalysis on 12/19/21: Straw, Clear, pH 8.0, SG 1.005, protein 100, blood 0.03, leukocyte esterase negative, urine WBC. CXR on 12/19/21: Normal. CT Head on 12/19/21: Normal age-related degenerative changes in the brain. 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 Severe right maxillary and moderate bilateral frontal sinusitis. Urine Sodium on 12/19/21: 76 PROGRESS Serum sodium 105, initially improved to 109 but decreased back to 105. Electrolytes otherwise significant for low phosphorus. Persistent hyponatremia is likely due to DDVAP overnight as well as high urine output with SIADH. Electrolytes are significant for low phosphorus otherwise. RECOMMENDATIONS AND PLAN I received a call from ICU nurse at 7:45 that hospitalist wants me to take over the sodium management. Diet changed to general with 1200 ml/day fluid restriction. Sodium Chloride 2 grams PO x 1. Liyspz-Sasu-M 250 mg PO QID. Serum sodium every 2 hours. Target serum sodium elevation: <4-6 mEq/L/24 hours. An extra 4-6 mEq/L correction in the first 6 hours may be considered for acute hyponatremia (onset less than 48 hours) with symptoms, but total correction <8 mEq/24 hr. Goal serum sodium of >130 mEq/L. Status: Chronic Time Spent With Patient Time: Total time spent is greater than 50% in coordination of care (as documented) at patient's floor/unit and/or counseling patient:
[2021-12-20] MEDS: POTASSIUM CHLORIDE 20 MEQ TABLET PO SCH (08:31)
[2021-12-20] MEDS: PHOSPHORUS 250 MG TABLET PO SCH ×4 (09:01→20:47)
--- NOTE | 2021-12-20 09:01 | Internal Med Progress Note ---
SUBJECTIVE Subjective Patient information: Note initiated : 12/20/21 at 8:59 am Service Date, if different from initiated Date: [] Patient: Amna Wei a 81 y/o F admitted on 12/19/21 for weakness/COVID+. Chief Complaint: [] Interval history: Ms. Wei is a 81 year old F Presents ED with increasing weakness poor appetite. Patient not eating and dr inking very well. Per family she also has some very mild confusion more so is lethargic and drowsy.. Extremely weak she could not get out of bed. Patient diagnosed with COVID several days ago and was prescribed Paxilovid. Chest x-ray in the ED unremarkable. CT showed age-related degenerative changes in the brain. In the ED she was found found to have a potassium of 2.6 and sodium 105 with a h ypochloridemia as well. Leukopenia mild thrombocytopenia. Lactic acid unremarkable. Potential culprit medications for hyponatremia could be the hydrochlorothiazide she is on She denies any nausea vomiting or diarrhea. No chest pain. She has a very mild nonproductive cough but denies shortness of breath. She appeared to be dry on a presentation was given IV fluid boluses in the ED. 12/20: Serum sodium initially improved to 109 yesterday evening, but this morning went back down to 105. Serum potassium improved to 3.7. On room air. Patient is c/o general weakness. Denies shortness of breath. c/o cough, denies wheezing. Denies fever, chills, or sweating. As per machine presser recs: 1200cc/day fluid restriction NaCl 2gm PO x1 Sodium phosphate 250mg PO QID Serum sodium q2hr Goal of correction: <8mEq/24 hours Goal serum sodium level >130 Constitutional Vitals: Vital Signs Temp Pulse Resp BP Pulse Ox O2 Del Method O2 Flow Rate 36.4 C 67 18 116/50 98 0 12/20/21 02:01 12/20/21 08:01 12/20/21 08:01 12/20/21 08:01 12/20/21 08:01 12/20/21 06:01 12/20/21 06:01 Period Temp Pulse Resp BP Sys/Kern Pulse Ox O2 Del Method O2 Flow Rate Last 24 Hr 36.2 C-36.8 C 62-72 12-20 116-160/50-82 95-100 Room Air-Room Air 0 Intake and Output 12/19/21 12/20/21 12/20/21 21:59 05:59 13:59 Intake Total 530.25 960.50 Output Total 800 1250 Balance -269.75 -289.50 Weight 75.478 kg Intake & Output: Intake & Output 12/19/21 12/20/21 12/20/21 21:59 05:59 13:59 Intake Total 530.25 960.50 Output Total 800 1250 Balance -269.75 -289.50 Weight 75.478 kg Intake: IV 50.25 600.50 Sodium Chloride 0.9% 500 ml @ 500 100 mls/hr IV BOLUS ONE Rx#: [id number] Ddavp 1 Mcg In Sodium Chloride 50.25 100.50 0.9% 50 ml @ 200 mls/hr IV Q6H [facility] Rx#:[id number] Sodium Chloride 3% 500 ml @ 20 0 mls/hr IV ONCE ONE Rx#: [id number] Oral 480 360 Output: Urine Catheter Amount 800 1250 Other: Meal Lunch Percent of Meal Consumed 50% Feeding Ability Assist with Tray Set Up Urine Appearance Clear Marquez Clear Urine Color Yellow Marquez Yellow Head Head exam: Present atraumatic and normal inspection Eye Eye exam: Present normal appearance ENT ENT exam: Present mucous membranes moist, normal exam and normal external ear exam Neck Neck exam: Present normal inspection Respiratory Respiratory exam: Present normal respiratory exam Cardiovascular Cardiovascular exam: Present normal rate and rhythm GI/Abdominal GI/Abdominal exam: Present normal bowel sounds Extremities Exam Extremities exam: Present pedal edema (trace) Back Exam Back exam: Present normal inspection Neurological Exam Neurological exam: Present alert and oriented X3 Skin Skin exam: Present intact and warm OBJ DATA Labs CBC & Chem 7: 12/20/21 05:22 12/20/21 05:22 Labs: Abnormal Lab Results 12/20/21 12/20/21 12/20/21 05:27 05:22 05:22 WBC 4.0 L Hct MCHC 37.0 H RDW 17.1 H Plt Count 90 L Immature Gran % (Auto) 1.2 H Neut % (Auto) Gallia % (Auto) 24.5 H Lymph # (Auto) 0.76 L Gallia # (Auto) 0.99 H Absolute Neutrophils POC VBG pH POC VBG pCO2 at Temp POC VBG pO2 POC Venous O2 Sat POC VBG Base Excess POC Sodium 107 L* Sodium 105 L* POC Potassium Potassium POC Chloride 75 L Chloride 74 L Carbon Dioxide 21 L POC Total CO2 21.0 L POC BUN 4 L BUN 5 L Creatinine 0.3 L POC Creatinine < 0.2 L POC Glucose Osmolality Uric Acid Calcium 7.4 L POC WB Ioniz Calcium 0.90 L Phosphorus 1.1 L Total Bilirubin 1.3 H Direct Bilirubin AST 39 H Cortisol AM Sample Urine Protein 12/19/21 12/19/21 12/19/21 20:16 15:04 12:27 WBC Hct MCHC RDW Plt Count Immature Gran % (Auto) Neut % (Auto) Gallia % (Auto) Lymph # (Auto) Gallia # (Auto) Absolute Neutrophils POC VBG pH POC VBG pCO2 at Temp POC VBG pO2 POC Venous O2 Sat POC VBG Base Excess POC Sodium 107 L* 109 L* Sodium POC Potassium 3.2 L 2.6 L* Potassium POC Chloride 72 L 71 L Chloride Carbon Dioxide POC Total CO2 POC BUN 4 L 3 L BUN Creatinine POC Creatinine 0.4 L 0.4 L POC Glucose 109 H 120 H Osmolality Uric Acid Calcium POC WB Ioniz Calcium 0.93 L 0.91 L Phosphorus Total Bilirubin Direct Bilirubin AST Cortisol AM Sample Urine Protein 100 A 12/19/21 12/19/21 12/19/21 11:21 11:21 06:42 WBC Hct MCHC RDW Plt Count Immature Gran % (Auto) Neut % (Auto) Gallia % (Auto) Lymph # (Auto) Gall[place] # (Auto) Absolute Neutrophils POC VBG pH POC VBG pCO2 at Temp POC VBG pO2 POC Venous O2 Sat POC VBG Base Excess POC Sodium 109 L* Sodium 107 L* POC Potassium 2.4 L* Potassium POC Chloride 71 L Chloride Carbon Dioxide POC Total CO2 POC BUN 4 L BUN Creatinine POC Creatinine 0.3 L POC Glucose 124 H Osmolality Uric Acid Calcium POC WB Ioniz Calcium 0.88 L Phosphorus Total Bilirubin Direct Bilirubin AST Cortisol AM Sample 33.7 H Urine Protein 12/19/21 12/19/21 12/19/21 06:42 06:42 06:31 WBC Hct MCHC RDW Plt Count Immature Gran % (Auto) Neut % (Auto) Gallia % (Auto) Lymph # (Auto) Gallia # (Auto) Absolute Neutrophils POC VBG pH 7.59 H POC VBG pCO2 at Temp 26.3 L POC VBG pO2 67 H POC Venous O2 Sat 96.0 H POC VBG Base Excess 4.0 H* POC Sodium Sodium 105 L* POC Potassium Potassium 2.6 L* POC Chloride Chloride 68 L Carbon Dioxide 21 L POC Total CO2 POC BUN BUN 7 L Creatinine 0.4 L POC Creatinine POC Glucose Osmolality 215 L Uric Acid 1.2 L Calcium 7.6 L POC WB Ioniz Calcium Phosphorus Total Bilirubin Direct Bilirubin AST Cortisol AM Sample Urine Protein 12/19/21 12/19/21 12/19/21 06:29 06:28 06:27 WBC 2.9 L Hct 33.8 L MCHC 37.3 H RDW 17.1 H Plt Count 97 L Immature Gran % (Auto) 1.0 H Neut % (Auto) 37.3 L Gallia % (Auto) 29.0 H Lymph # (Auto) 0.94 L Gallia # (Auto) Absolute Neutrophils 1.08 L POC VBG pH POC VBG pCO2 at Temp POC VBG pO2 POC Venous O2 Sat POC VBG Base Excess POC Sodium 105 L* Sodium POC Potassium 2.6 L* Potassium POC Chloride 71 L Chloride Carbon Dioxide POC Total CO2 POC BUN BUN Creatinine POC Creatinine 0.3 L POC Glucose Osmolality Uric Acid Calcium POC WB Ioniz Calcium 0.83 L Phosphorus Total Bilirubin Direct Bilirubin 0.3 H AST 40 H Cortisol AM Sample Urine Protein Meds: Medications Acetaminophen (Acetaminophen 325 Mg Tablet) 650 mg PO Q6HP PRN; Protocol PRN Reason: Per Pain Protocol/Fever > 101 Albuterol/Ipratropium (Ipratropium/Albuterol 3 Ml Ampul.Neb) 3 ml NEB Q4HP PRN PRN Reason: Shortness Of Breath Benzonatate (Benzonatate 100 Mg Capsule) 200 mg PO TIDP PRN PRN Reason: Cough Diltiazem HCl (Diltiazem 240 Mg Cap.Xl.24h) 240 mg PO HS [facility] Last Admin: 12/19/21 21:11 Dose: 240 mg Docusate Sodium (Docusate Sodium 100 Mg Capsule) 100 mg PO BID [facility] Last Admin: 12/19/21 21:11 Dose: 100 mg Enoxaparin Sodium (Enoxaparin 40 Mg/0.4 Ml Syringe) 40 mg SQ DAILY [facility] Potassium Chloride 40 meq/ (Dextrose) 520 mls @ 130 mls/hr IV UD PRN PRN Reason: Potassium < 3 Magnesium Sulfate (Magnesium Sulfate) 2 gm in 50 mls @ 50 mls/hr IV UD PRN PRN Reason: Magnesium </= 1.6 Latanoprost (Latanoprost Ophth Drops 2.5ml Bottle) 1 gtt OU HS [facility] Last Admin: 12/19/21 21:18 Dose: Not Given Levothyroxine Sodium (Levothyroxine 50 Mcg Tablet) 50 mcg PO ACB [facility] Losartan Potassium (Losartan 50 Mg Tablet) 100 mg PO DAILY [facility] Ondansetron HCl (Ondansetron 4 Mg/2 Ml Vial) 4 mg IV Q4HP PRN PRN Reason: Nausea And Vomiting Polyethylene Glycol (Polyethylene Glycol 3350 17 Gm Packet) 17 gm PO DAILYP PRN PRN Reason: Constipation Senna (Sennosides 1 Tablet) 2 tab PO DAILYP PRN PRN Reason: Constipation Sodium Chloride (0.9 % Sodium Chloride 10 Ml Syringe) 10 ml IV Q8 [facility] Last Admin: 12/20/21 05:19 Dose: 10 ml Sodium Phosphate (Phosphorus 250 Mg Tablet) 250 mg PO QID [facility] A/P Assessment and plan (1) COVID-19 virus infection: Status: Acute (2) Acute hyponatremia: Status: Acute (3) Hypokalemia due to loss of potassium: Status: Acute (4) Hypothyroidism, acquired: Status: Chronic (5) Hypertension, essential: Status: Chronic Narrative A/P Narrative: Assessment and Plans: 1. Plan of Treatment: Assessment and Plans: 1. Acute hyponatremia: Consulted machine presser Dr. Escamilla, recs. appreciated As per machine presser recs: 1200cc/day fluid restriction NaCl 2gm PO x1 Sodium phosphate 250mg PO QID Serum sodium q2hr Goal of correction: <8mEq/24 hours Goal serum sodium level >130 Physical therapy Occupational therapy 2. CoVID pneumonia: Isolation: airborne and contact Supplemental oxygen therapy as needed Finished Paxlovid therapy 3. Hypokalemia: s/p replacement, now serum potassium level 3.7 4. Essential hypertension: Normotensive Diltiazem CD Losartan d/c HCTZ from home regimen given hyponatremia 5. Hypothyroidism: Oral thyroid replacement GI ppx: not indicated DVT ppx: Lovenox Code status: Full Prognosis: extremely guarded Disposition: inpatient PCU; PT OT Time Spent With Patient Time: Total time spent is greater than 50% in coordination of care (as documented) at patient's floor/unit and/or counseling patient: Total time spent with greater than 50% in coordination of care (as documented) at patient's floor/unit and/or counseling patient:: 35 - 50 minutes Critical Care Time: No QUALITY VTE Deep Vein Thrombosis/Pulmonary Embolism Present on Admission: No
[2021-12-20] MEDS: ENOXAPARIN 40 MG/0.4 ML SYRINGE SQ SCH (09:02)
[2021-12-20] MEDS: LEVOTHYROXINE 50 MCG TABLET PO SCH (09:02)
[2021-12-20] MEDS: DOCUSATE SODIUM 100 MG CAPSULE PO SCH ×2 (09:02→20:47)
[2021-12-20] MEDS: LOSARTAN 50 MG TABLET PO SCH (09:02)
[2021-12-20] MEDS: BENZONATATE 100 MG CAPSULE PO PRN (09:02)
[2021-12-20] MEDS: NIRMATRELVIR/RITONAVIR 1 EACH BOX PO SCH ×2 (10:44→20:49)
[2021-12-20] MEDS ORDERED: SODIUM CHLORIDE 3 % 500 ML IV ONE (16:57)
[2021-12-20] MEDS: DILTIAZEM 240 MG CAP.XL.24H PO SCH (20:47)
[2021-12-20] MEDS: LATANOPROST OPHTH DROPS 2.5ML BOTTLE OU SCH (20:48)
[2021-12-21] MEDS: 0.9 % SODIUM CHLORIDE 10 ML SYRINGE IV SCH ×4 (05:46→21:35)
[2021-12-21 06:39] LABS: Basophils # (Auto) 0.01 K/mcL (0.00-0.30); Basophils % (Auto) 0.2 % (0.0-2.0); Eosinophils # (Auto) 0.01 K/mcL (0.00-0.70); Eosinophils % (Auto) 0.2 % (0.0-7.0); Hematocrit 34.4 % (34.1-44.9); Hemoglobin 12.6 g/dL (11.2-15.7); Lymphocytes # (Auto) 0.62 K/mcL (1.50-4.80); Lymphocytes % (Auto) 12.8 % (15.5-49.0); Mean Cell Volume 91.7 fL (80.0-100.0); Mean Corpuscular HGB Conc 36.6 g/dL (31.0-36.0); Mean Platelet Volume 10.3 fL (8.8-12.5); Monocytes # (Auto) 0.79 K/mcL (0.10-0.90); Monocytes % (Auto) 16.3 % (1.0-12.0); Neutrophils % (Auto) 69.3 % (38.0-78.0); Platelet Count 80 K/mcL (140-440); RBC 3.75 M/mcL (3.59-5.38); Red Cell Distribution Width 17.2 % (11.5-14.5); WBC 4.9 K/mcL (4.5-11.0)
[2021-12-21 06:53] LABS: Phosphorous 1.5 mg/dL (2.5-4.5)
[2021-12-21 07:15] LABS: ALT/SGPT 19 U/L (<40); AST/SGOT 32 U/L (<32); Albumin 3.5 gm/dL (3.2-5.2); Albumin/Globulin Ratio 1.4 (1.0-2.3); Alkaline Phosphatase 46 U/L (39-117); Bilirubin,Total 1.4 mg/dL (0.1-1.0); Blood Urea Nitrogen 4 mg/dL (8-23); Calcium 7.4 mg/dL (8.6-10.4); Carbon Dioxide 20 mmol/L (22-30); Chloride 78 mmol/L (96-108); Globulin 2.5 gm/dL (2.2-3.7); Glomerular Filtration Rate 109; Glucose 94 mg/dL (70-105)
--- NOTE | 2021-12-21 07:27 | Nephrology Progress Note ---
SUBJECTIVE Subjective Patient information: Note initiated : 12/21/21 at 7:23 am Patient: Amna Wei 81 y/o F admitted on 12/19/21 for weakness/COVID+. Chief Complaint: Weakness Pertinent ROS: Weakness Marquez catheter Constitutional Vitals: Vital Signs Temp Pulse Resp BP Pulse Ox O2 Del Method O2 Flow Rate 98.2 F 63 13 125/65 92 0 12/21/21 04:01 12/21/21 06:01 12/21/21 06:01 12/21/21 06:01 12/21/21 06:01 12/21/21 02:00 12/20/21 20:03 Period Temp Pulse Resp BP Sys/Kern Pulse Ox O2 Del Method O2 Flow Rate Last 24 Hr 97.9 F-98.3 F 60-74 12-21 116-140/50-79 92-99 Room Air-Room Air 0 Intake and Output 12/20/21 12/21/21 12/21/21 21:59 05:59 13:59 Intake Total 480 239 Output Total 175 750 Balance 305 -511 Weight 167 lb 11.2 oz Intake & Output: Intake & Output 12/20/21 12/21/21 12/21/21 21:59 05:59 13:59 Intake Total 480 239 Output Total 175 750 Balance 305 -511 Weight 167 lb 11.2 oz Intake: IV 89 Sodium Chloride 3% 500 ml @ 15 89 mls/hr IV ONCE ONE Rx#: [id number] Oral 480 150 Output: Urine Catheter Amount 175 750 Other: Meal Dinner Percent of Meal Consumed 0% Urine Appearance Clear Clear Marquez Clear Urine Color Yellow Yellow Marquez Yellow Urine Odor Normal General appearance: cooperative and no acute distress Head Head exam: Present normal inspection Eye Eye exam: Present normal appearance ENT ENT exam: Present mucous membranes moist Respiratory Respiratory exam: Absent respiratory distress Cardiovascular Cardiovascular exam: Present normal rate and rhythm GI/Abdominal GI/Abdominal exam: Present soft; Absent tenderness Extremities Exam Extremities exam: Absent joint swelling or pedal edema Neurological Exam Neurological exam: Present alert and oriented X3 Psychiatric Psychiatric exam: Present normal affect and normal mood Skin Skin exam: Present warm; Absent rash A/P Assessment and plan (1) Hyponatremia: Assessment and plan: Amna Wei is a 81-year-old female brought to ED by EMS for worsening weakness over the last 24 hours. She was diagnosed with COVID-19 4 days ago. Since that time she has been on Paxlovid that was prescribed by her PCP. In ED, her serum sodium was 105. She was given 2 L NS and admitted to ICU. Her repeat POC serum sodium was 109 after 5 hours. Nephrology consultation was requested for hyponatremia. 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 WORKUP Urinalysis on 12/19/21: Straw, Clear, pH 8.0, SG 1.005, protein 100, blood 0.03, leukocyte esterase negative, urine WBC. CXR on 12/19/21: Normal. CT Head on 12/19/21: Normal age-related degenerative changes in the brain. 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 Severe right maxillary and moderate bilateral frontal sinusitis. Urine Sodium on 12/19/21: 76 PROGRESS Serum sodium range: 12/19: 105-109 12/20: 105-111 12/21: 110 Electrolytes otherwise significant for low phosphorus, potassium and bicarbonate. Urine output: 1,275 ml reported in the past 24 hours. RECOMMENDATIONS AND PLAN Continue general diet with 1200 ml/day fluid restriction. Sodium Bicarbonate 650 mg PO TID. Jqqiwa-Bcke-H increased from 250 to 500 mg PO QID. Serum sodium every 4 hours. Target serum sodium until 6PM today: 110-114 Hypertonic sodium chloride (3%) at 15 ml/hr will be considered based on progress. Status: Chronic Narrative Plan of Treatment: Assessment and Plans: 1. Acute hyponatremia: Consulted machine gunner Dr. Escamilla, recs. appreciated As per machine gunner recs: 1200cc/day fluid restriction NaCl 2gm PO x1 Sodium phosphate 250mg PO QID Serum sodium q2hr Goal of correction: <8mEq/24 hours Goal serum sodium level >130 Physical therapy Occupational therapy 2. CoVID pneumonia: Isolation: airborne and contact Supplemental oxygen therapy as needed Finished Paxlovid therapy 3. Hypokalemia: s/p replacement, now serum potassium level 3.7 4. Essential hypertension: Normotensive Diltiazem CD Losartan d/c HCTZ from home regimen given hyponatremia 5. Hypothyroidism: Oral thyroid replacement GI ppx: not indicated DVT ppx: Lovenox Code status: Full Prognosis: extremely guarded Disposition: inpatient PCU; PT OT Time Spent With Patient Time: Total time spent is greater than 50% in coordination of care (as documented) at patient's floor/unit and/or counseling patient:
[2021-12-21] MEDS: PHOSPHORUS 250 MG TABLET PO SCH ×4 (07:49→21:34)
[2021-12-21] MEDS: DOCUSATE SODIUM 100 MG CAPSULE PO SCH ×2 (07:49→21:34)
[2021-12-21] MEDS: ENOXAPARIN 40 MG/0.4 ML SYRINGE SQ SCH (07:49)
[2021-12-21] MEDS: LEVOTHYROXINE 50 MCG TABLET PO SCH (07:50)
[2021-12-21] MEDS: SODIUM BICARBONATE 650 MG TABLET PO SCH ×3 (07:50→21:34)
[2021-12-21] MEDS: LOSARTAN 50 MG TABLET PO SCH (07:50)
[2021-12-21] MEDS: NIRMATRELVIR/RITONAVIR 1 EACH BOX PO SCH ×2 (09:58→21:33)
[2021-12-21] MEDS ORDERED: POTASSIUM CHLORIDE 20 MEQ in DEXTROSE 5% IN WATER 250 ML IV ONE (10:19)
--- NOTE | 2021-12-21 10:19 | Internal Med Progress Note ---
SUBJECTIVE Subjective Patient information: Note initiated : 12/21/21 at 10:15 am Service Date, if different from initiated Date: [] Patient: Amna Wei a 81 y/o F admitted on 12/19/21 for weakness/COVID+. Chief Complaint: [] Interval history: Ms. Wei is a 81 year old F Presents ED with increasing weakness poor appetite. Patient not eating and d rinking very well. Per family she also has some very mild confusion more so is lethargic and drowsy.. Extremely weak she could not get out of bed. Patient diagnosed with COVID several days ago and was prescribed Paxilovid. Chest x-ray in the ED unremarkable. CT showed age-related degenerative changes in the brain. In the ED she was found found to have a potassium of 2.6 and sodium 105 with a hypochloridemia as well. Leukopenia mild thrombocytopenia. Lactic acid unremarkable. Potential culprit medications for hyponatremia could be the hydrochlorothiazide she is on She denies any nausea vomiting or diarrhea. No chest pain. She has a very mild nonproductive cough but denies shortness of breath. She appeared to be dry on a presentation was given IV fluid boluses in the ED. 12/20: Serum sodium initially improved to 109 yesterday evening, but this morning went back down to 105. Serum potassium improved to 3.7. On room air. Patient is c/o general weakness. Denies shortness of breath. c/o cough, denies wheezing. Denies fever, chills, or sweating. As per director of design recs: 1200cc/day fluid restriction NaCl 2gm PO x1 Sodium phosphate 250mg PO QID Serum sodium q2hr Goal of correction: <8mEq/24 hours Goal serum sodium level >130 12/21: Serum sodium 110, potassium 2.9 this morning. Nursing has noticed swallowing difficulties. Patient denies any chest pain or palpitations. She denies any muscle cramps or muscle weakness. She denies any confusions or lethargy's. She is still complain of general weakness. 1200cc/day fluid restriction Sodium phosphate 500mg PO QID Sodium bicarbonate 650mg PO TID 3% sodium chloride 500ml @15cc/hr K rider 20mEq IV once Potassium chloride 40mEq PO BID Serum sodium q4hr Last day of Paxlovid therapy. Physical therapy Occupational Therapy and speech therapy evaluation and treatments. Constitutional Vitals: Vital Signs Temp Pulse Resp BP Pulse Ox O2 Del Method O2 Flow Rate 36.4 C 70 15 128/60 94 0 12/21/21 08:01 12/21/21 08:01 12/21/21 08:01 12/21/21 08:01 12/21/21 08:01 12/21/21 02:00 12/20/21 20:03 Period Temp Pulse Resp BP Sys/Kern Pulse Ox O2 Del Method O2 Flow Rate Last 24 Hr 36.4 C-36.8 C 60-74 12-19 119-140/55-79 92-99 Room Air-Room Air 0 Intake and Output 12/20/21 12/21/21 12/21/21 21:59 05:59 13:59 Intake Total 480 239 Output Total 175 750 Balance 305 -511 Weight 76.067 kg Intake & Output: Intake & Output 12/20/21 12/21/21 12/21/21 21:59 05:59 13:59 Intake Total 480 239 Output Total 175 750 Balance 305 -511 Weight 76.067 kg Intake: IV 89 Sodium Chloride 3% 500 ml @ 15 89 mls/hr IV ONCE ONE Rx#: [id number] Oral 480 150 Output: Urine Catheter Amount 175 750 Other: Meal Dinner Percent of Meal Consumed 0% Urine Appearance Clear Clear Marquez Clear Urine Color Yellow Yellow Marquez Yellow Urine Odor Normal Head Head exam: Present atraumatic and normal inspection Eye Eye exam: Present normal appearance ENT ENT exam: Present mucous membranes moist, normal exam and normal external ear exam Neck Neck exam: Present normal inspection Respiratory Respiratory exam: Present normal respiratory exam Cardiovascular Cardiovascular exam: Present normal rate and rhythm GI/Abdominal GI/Abdominal exam: Present normal bowel sounds Back Exam Back exam: Present normal inspection Neurological Exam Neurological exam: Present alert and oriented X3 Skin Skin exam: Present intact and warm OBJ DATA Labs CBC & Chem 7: 12/21/21 05:21 12/21/21 05:21 Labs: Abnormal Lab Results 12/21/21 12/21/21 12/21/21 05:21 05:21 01:19 WBC Hct MCHC 36.6 H RDW 17.2 H Plt Count 80 L Immature Gran % (Auto) 1.2 H Neut % (Auto) Lymph % (Auto) 12.8 L [place] % (Auto) 16.3 H Lymph # (Auto) 0.62 L [place] # (Auto) Immature Gran # 0.06 H Absolute Neutrophils POC VBG pH POC VBG pCO2 at Temp POC VBG pO2 POC Venous O2 Sat POC VBG Base Excess POC Sodium Sodium 110 L* 110 L* POC Potassium Potassium 2.9 L* POC Chloride Chloride 78 L Carbon Dioxide 20 L POC Total CO2 POC BUN BUN 4 L Creatinine 0.3 L POC Creatinine POC Glucose Osmolality Uric Acid Calcium 7.4 L POC WB Ioniz Calcium Phosphorus 1.5 L Total Bilirubin 1.4 H Direct Bilirubin AST 32 H Cortisol AM Sample Urine Protein 12/20/21 12/20/21 12/20/21 22:15 20:10 18:00 WBC Hct MCHC RDW Plt Count Immature Gran % (Auto) Neut % (Auto) Lymph % (Auto) [place] % (Auto) Lymph # (Auto) [place] # (Auto) Immature Gran # Absolute Neutrophils POC VBG pH POC VBG pCO2 at Temp POC VBG pO2 POC Venous O2 Sat POC VBG Base Excess POC Sodium Sodium 111 L* 108 L* 106 L* POC Potassium Potassium POC Chloride Chloride Carbon Dioxide POC Total CO2 POC BUN BUN Creatinine POC Creatinine POC Glucose Osmolality Uric Acid Calcium POC WB Ioniz Calcium Phosphorus Total Bilirubin Direct Bilirubin AST Cortisol AM Sample Urine Protein 12/20/21 12/20/21 12/20/21 16:00 14:13 12:17 WBC Hct MCHC RDW Plt Count Immature Gran % (Auto) Neut % (Auto) Lymph % (Auto) [place] % (Auto) Lymph # (Auto) [place] # (Auto) Immature Gran # Absolute Neutrophils POC VBG pH POC VBG pCO2 at Temp POC VBG pO2 POC Venous O2 Sat POC VBG Base Excess POC Sodium Sodium 106 L* 106 L* 106 L* POC Potassium Potassium POC Chloride Chloride Carbon Dioxide POC Total CO2 POC BUN BUN Creatinine POC Creatinine POC Glucose Osmolality Uric Acid Calcium POC WB Ioniz Calcium Phosphorus Total Bilirubin Direct Bilirubin AST Cortisol AM Sample Urine Protein 12/20/21 12/20/21 12/20/21 10:20 08:19 05:27 WBC Hct MCHC RDW Plt Count Immature Gran % (Auto) Neut % (Auto) Lymph % (Auto) [place] % (Auto) Lymph # (Auto) [place] # (Auto) Immature Gran # Absolute Neutrophils POC VBG pH POC VBG pCO2 at Temp POC VBG pO2 POC Venous O2 Sat POC VBG Base Excess POC Sodium 107 L* Sodium 106 L* 105 L* POC Potassium Potassium POC Chloride 75 L Chloride Carbon Dioxide POC Total CO2 21.0 L POC BUN 4 L BUN Creatinine POC Creatinine < 0.2 L POC Glucose Osmolality Uric Acid Calcium POC WB Ioniz Calcium 0.90 L Phosphorus Total Bilirubin Direct Bilirubin AST Cortisol AM Sample Urine Protein 12/20/21 12/20/21 12/19/21 05:22 05:22 20:16 WBC 4.0 L Hct MCHC 37.0 H RDW 17.1 H Plt Count 90 L Immature Gran % (Auto) 1.2 H Neut % (Auto) Lymph % (Auto) [place] % (Auto) 24.5 H Lymph # (Auto) 0.76 L [place] # (Auto) 0.99 H Immature Gran # Absolute Neutrophils POC VBG pH POC VBG pCO2 at Temp POC VBG pO2 POC Venous O2 Sat POC VBG Base Excess POC Sodium 107 L* Sodium 105 L* POC Potassium 3.2 L Potassium POC Chloride 72 L Chloride 74 L Carbon Dioxide 21 L POC Total CO2 POC BUN 4 L BUN 5 L Creatinine 0.3 L POC Creatinine 0.4 L POC Glucose 109 H Osmolality Uric Acid Calcium 7.4 L POC WB Ioniz Calcium 0.93 L Phosphorus 1.1 L Total Bilirubin 1.3 H Direct Bilirubin AST 39 H Cortisol AM Sample Urine Protein 12/19/21 12/19/21 12/19/21 15:04 12:27 11:21 WBC Hct MCHC RDW Plt Count Immature Gran % (Auto) Neut % (Auto) Lymph % (Auto) [place] % (Auto) Lymph # (Auto) [place] # (Auto) Immature Gran # Absolute Neutrophils POC VBG pH POC VBG pCO2 at Temp POC VBG pO2 POC Venous O2 Sat POC VBG Base Excess POC Sodium 109 L* Sodium 107 L* POC Potassium 2.6 L* Potassium POC Chloride 71 L Chloride Carbon Dioxide POC Total CO2 POC BUN 3 L BUN Creatinine POC Creatinine 0.4 L POC Glucose 120 H Osmolality Uric Acid Calcium POC WB Ioniz Calcium 0.91 L Phosphorus Total Bilirubin Direct Bilirubin AST Cortisol AM Sample Urine Protein 100 A 12/19/21 12/19/21 12/19/21 11:21 06:42 06:42 WBC Hct MCHC RDW Plt Count Immature Gran % (Auto) Neut % (Auto) Lymph % (Auto) [place] % (Auto) Lymph # (Auto) [place] # (Auto) Immature Gran # Absolute Neutrophils POC VBG pH POC VBG pCO2 at Temp POC VBG pO2 POC Venous O2 Sat POC VBG Base Excess POC Sodium 109 L* Sodium POC Potassium 2.4 L* Potassium POC Chloride 71 L Chloride Carbon Dioxide POC Total CO2 POC BUN 4 L BUN Creatinine POC Creatinine 0.3 L POC Glucose 124 H Osmolality 215 L Uric Acid 1.2 L Calcium POC WB Ioniz Calcium 0.88 L Phosphorus Total Bilirubin Direct Bilirubin AST Cortisol AM Sample 33.7 H Urine Protein 12/19/21 12/19/21 12/19/21 06:42 06:31 06:29 WBC Hct MCHC RDW Plt Count Immature Gran % (Auto) Neut % (Auto) Lymph % (Auto) [place] % (Auto) Lymph # (Auto) [place] # (Auto) Immature Gran # Absolute Neutrophils POC VBG pH 7.59 H POC VBG pCO2 at Temp 26.3 L POC VBG pO2 67 H POC Venous O2 Sat 96.0 H POC VBG Base Excess 4.0 H* POC Sodium 105 L* Sodium 105 L* POC Potassium 2.6 L* Potassium 2.6 L* POC Chloride 71 L Chloride 68 L Carbon Dioxide 21 L POC Total CO2 POC BUN BUN 7 L Creatinine 0.4 L POC Creatinine 0.3 L POC Glucose Osmolality Uric Acid Calcium 7.6 L POC WB Ioniz Calcium 0.83 L Phosphorus Total Bilirubin Direct Bilirubin AST Cortisol AM Sample Urine Protein 12/19/21 12/19/21 06:28 06:27 WBC 2.9 L Hct 33.8 L MCHC 37.3 H RDW 17.1 H Plt Count 97 L Immature Gran % (Auto) 1.0 H Neut % (Auto) 37.3 L Lymph % (Auto) [place] % (Auto) 29.0 H Lymph # (Auto) 0.94 L [place] # (Auto) Immature Gran # Absolute Neutrophils 1.08 L POC VBG pH POC VBG pCO2 at Temp POC VBG pO2 POC Venous O2 Sat POC VBG Base Excess POC Sodium Sodium POC Potassium Potassium POC Chloride Chloride Carbon Dioxide POC Total CO2 POC BUN BUN Creatinine POC Creatinine POC Glucose Osmolality Uric Acid Calcium POC WB Ioniz Calcium Phosphorus Total Bilirubin Direct Bilirubin 0.3 H AST 40 H Cortisol AM Sample Urine Protein Meds: Medications Acetaminophen (Acetaminophen 325 Mg Tablet) 650 mg PO Q6HP PRN; Protocol PRN Reason: Per Pain Protocol/Fever > 101 Albuterol/Ipratropium (Ipratropium/Albuterol 3 Ml Ampul.Neb) 3 ml NEB Q4HP PRN PRN Reason: Shortness Of Breath Benzonatate (Benzonatate 100 Mg Capsule) 200 mg PO TIDP PRN PRN Reason: Cough Last Admin: 12/20/21 09:02 Dose: 200 mg Diltiazem HCl (Diltiazem 240 Mg Cap.Xl.24h) 240 mg PO [facility] Last Admin: 12/20/21 20:47 Dose: 240 mg Docusate Sodium (Docusate Sodium 100 Mg Capsule) 100 mg PO BID [facility] Last Admin: 12/21/21 07:49 Dose: 100 mg Enoxaparin Sodium (Enoxaparin 40 Mg/0.4 Ml Syringe) 40 mg SQ DAILY [facility] Last Admin: 12/21/21 07:49 Dose: 40 mg Magnesium Sulfate (Magnesium Sulfate) 2 gm in 50 mls @ 50 mls/hr IV UD PRN PRN Reason: Magnesium </= 1.6 Sodium Chloride (Sodium Chloride 3%) 500 mls @ 15 mls/hr IV ONCE ONE Stop: 12/22/21 02:16 Last Infusion: 12/20/21 23:48 Dose: 0 mls/hr Latanoprost (Latanoprost Ophth Drops 2.5ml Bottle) 1 gtt OU [facility] Last Admin: 12/20/21 20:48 Dose: Not Given Levothyroxine Sodium (Levothyroxine 50 Mcg Tablet) 50 mcg PO ACB [facility] Last Admin: 12/21/21 07:50 Dose: 50 mcg Losartan Potassium (Losartan 50 Mg Tablet) 100 mg PO DAILY [facility] Last Admin: 12/21/21 07:50 Dose: 100 mg Ondansetron HCl (Ondansetron 4 Mg/2 Ml Vial) 4 mg IV Q4HP PRN PRN Reason: Nausea And Vomiting Polyethylene Glycol (Polyethylene Glycol 3350 17 Gm Packet) 17 gm PO DAILYP PRN PRN Reason: Constipation Senna (Sennosides 1 Tablet) 2 tab PO DAILYP PRN PRN Reason: Constipation Sodium Bicarbonate (Sodium Bicarbonate 650 Mg Tablet) 650 mg PO TID [facility] Last Admin: 12/21/21 07:50 Dose: 650 mg Sodium Chloride (0.9 % Sodium Chloride 10 Ml Syringe) 10 ml IV Q8 [facility] Last Admin: 12/21/21 05:46 Dose: 10 ml Sodium Phosphate (Phosphorus 250 Mg Tablet) 500 mg PO QID [facility] Last Admin: 12/21/21 07:49 Dose: 500 mg A/P Assessment and plan (1) COVID-19 virus infection: Status: Acute (2) Acute hyponatremia: Status: Acute (3) Hypokalemia due to loss of potassium: Status: Acute (4) Hypothyroidism, acquired: Status: Chronic (5) Hypertension, essential: Status: Chronic Narrative A/P Narrative: Assessment and Plans: 1. Plan of Treatment: Assessment and Plans: 1. Acute hyponatremia: Consulted director of design Dr. Escamilla, recs. appreciated As per director of design recs: 1200cc/day fluid restriction Sodium phosphate 500mg PO QID Sodium bicarbonate 650mg PO TID 3% sodium chloride 500ml @15cc/hr Serum sodium q4hr Goal of correction: <8mEq/24 hours Goal serum sodium level >130 2. CoVID pneumonia: Isolation: airborne and contact Supplemental oxygen therapy as needed Finish Paxlovid therapy on 12/21 3. Hypokalemia: K rider 20mEq IV once Potassium chloride 40mEq PO BID CMP daily to trend serum potassium level Also check serum Mg level daily and replace if needed 4. Essential hypertension: Normotensive Diltiazem CD Losartan d/c HCTZ from home regimen given hyponatremia 5. Hypothyroidism: Oral thyroid replacement GI ppx: not indicated DVT ppx: Lovenox Code status: Full Prognosis: extremely guarded Disposition: inpatient PCU; PT OT SLT Time Spent With Patient Time: Total time spent is greater than 50% in coordination of care (as documented) at patient's floor/unit and/or counseling patient: Total time spent with greater than 50% in coordination of care (as documented) at patient's floor/unit and/or counseling patient:: 35 - 50 minutes QUALITY VTE Deep Vein Thrombosis/Pulmonary Embolism Present on Admission: No
[2021-12-21] MEDS ORDERED: POTASSIUM CHLORIDE 20 MEQ TABLET PO SCH (17:30)
[2021-12-21] MEDS: DILTIAZEM 240 MG CAP.XL.24H PO SCH (21:34)
[2021-12-21] MEDS: LATANOPROST OPHTH DROPS 2.5ML BOTTLE OU SCH (21:36)
[2021-12-22] MEDS: 0.9 % SODIUM CHLORIDE 10 ML SYRINGE IV SCH ×5 (05:06→20:30)
[2021-12-22 07:29] LABS: Phosphorous 2.1 mg/dL (2.5-4.5)
[2021-12-22] MEDS: NIRMATRELVIR/RITONAVIR 1 EACH BOX PO SCH (07:33)
[2021-12-22 07:45] LABS: ALT/SGPT 17 U/L (<40); AST/SGOT 26 U/L (<32); Albumin/Globulin Ratio 1.2 (1.0-2.3); Alkaline Phosphatase 54 U/L (39-117); Bilirubin,Total 1.5 mg/dL (0.1-1.0); Blood Urea Nitrogen 5 mg/dL (8-23); Calcium 7.5 mg/dL (8.6-10.4); Carbon Dioxide 21 mmol/L (22-30); Chloride 82 mmol/L (96-108); Globulin 2.6 gm/dL (2.2-3.7); Glomerular Filtration Rate 109; Glucose 90 mg/dL (70-105)
--- NOTE | 2021-12-22 07:51 | Nephrology Progress Note ---
SUBJECTIVE Subjective Patient information: Note initiated : 12/22/21 at 7:51 am Patient: Amna Wei 81 y/o F admitted on 12/19/21 for weakness/COVID+. Chief Complaint: Weakness Pertinent ROS: Weakness Dysphagia Dyspnea Constitutional Vitals: Vital Signs Temp Pulse Resp BP Pulse Ox O2 Del Method O2 Flow Rate 98.2 F 62 13 102/46 99 3 12/22/21 02:01 12/22/21 06:01 12/22/21 06:01 12/22/21 06:01 12/22/21 06:01 12/22/21 06:32 12/22/21 06:32 Period Temp Pulse Resp BP Sys/Kern Pulse Ox O2 Del Method O2 Flow Rate Last 24 Hr 97.6 F-99.1 F 62-80 13-18 102-136/46-80 87-99 Nasal Cannula- Room Air 3-3 Intake and Output 12/21/21 12/22/21 12/22/21 21:59 05:59 13:59 Intake Total 340 500 Output Total 175 525 Balance 165 -25 Weight 167 lb 12.8 oz Intake & Output: Intake & Output 12/21/21 12/22/21 12/22/21 21:59 05:59 13:59 Intake Total 340 500 Output Total 175 525 Balance 165 -25 Weight 167 lb 12.8 oz Intake: IV 340 0 Potassium Chloride 20 Meq In 260 Dextrose 5% in Water 250 ml @ 130 mls/hr IV ONCE ONE Rx#: [id number] Sodium Chloride 3% 500 ml @ 15 80 0 mls/hr IV ONCE ONE Rx#: [id number] Oral 500 Output: Urine Catheter Amount 175 525 Other: Urine Appearance Clear Clear Marquez Clear Urine Color Dark Yellow Dark Yellow Marquez Dark Yellow Urine Odor Normal Normal Stool Size Small Stool Color Brown Stool Consistency Desi # Bowel Movements 1 0 # of times incontinent of 0 0 Bowels General appearance: cooperative and no acute distress Head Head exam: Present normal inspection Eye Eye exam: Present normal appearance ENT ENT exam: Present mucous membranes moist Respiratory Respiratory exam: Absent respiratory distress Cardiovascular Cardiovascular exam: Present normal rate and rhythm GI/Abdominal GI/Abdominal exam: Present soft; Absent tenderness Extremities Exam Extremities exam: Absent joint swelling or pedal edema Neurological Exam Neurological exam: Present alert and oriented X3 Psychiatric Psychiatric exam: Present normal affect and normal mood Skin Skin exam: Present warm; Absent rash A/P Assessment and plan (1) Hyponatremia: Assessment and plan: Amna Wei is a 81-year-old female brought to ED by EMS for worsening weakness over the last 24 hours. She was diagnosed with COVID-19 4 days ago. Since that time she has been on Paxlovid that was prescribed by her PCP. In ED, her serum sodium was 105. She was given 2 L NS and admitted to ICU. Her repeat POC serum sodium was 109 after 5 hours. Nephrology consultation was requested for hyponatremia. 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 WORKUP Urinalysis on 12/19/21: Straw, Clear, pH 8.0, SG 1.005, protein 100, blood 0.03, leukocyte esterase negative, urine WBC. CXR on 12/19/21: Normal. CT Head on 12/19/21: Normal age-related degenerative changes in the brain. 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 Severe right maxillary and moderate bilateral frontal sinusitis. Urine Sodium on 12/19/21: 76 PROGRESS Serum sodium range: 12/19: 105-109 12/20: 105-111 12/21: 108-113; 125 was a sampling error (sample obtained proximal to hypertonic saline infusion). 12/22: 113-115 Electrolytes otherwise significant for low phosphorus, potassium and bicarbonate. Urine output: 1,275 ml reported in the past 24 hours. RECOMMENDATIONS AND PLAN Continue 1200 ml/day fluid restriction. Sodium Bicarbonate 650 mg PO TID and Owtmpi-Ivcu-B 500 mg PO QID will be discontinued due to dysphagia. K-Phos 40 mEq IV x 1 and Bicitra 30 ml PO TID ordered instead. Serum sodium every 4 hours. Target serum sodium until 6PM today: 115-118. Hypertonic sodium chloride (3%) at 15 ml/hr will be continued with frequent serum sodium monitoring. Status: Chronic Narrative Plan of Treatment: Assessment and Plans: 1. Acute hyponatremia: Consulted supervisor matrix Dr. Escamilla, recs. appreciated As per supervisor matrix recs: 1200cc/day fluid restriction Sodium phosphate 500mg PO QID Sodium bicarbonate 650mg PO TID 3% sodium chloride 500ml @15cc/hr Serum sodium q4hr Goal of correction: <8mEq/24 hours Goal serum sodium level >130 2. CoVID pneumonia: Isolation: airborne and contact Supplemental oxygen therapy as needed Finish Paxlovid therapy on 12/21 3. Hypokalemia: K rider 20mEq IV once Potassium chloride 40mEq PO BID CMP daily to trend serum potassium level Also check serum Mg level daily and replace if needed 4. Essential hypertension: Normotensive Diltiazem CD Losartan d/c HCTZ from home regimen given hyponatremia 5. Hypothyroidism: Oral thyroid replacement GI ppx: not indicated DVT ppx: Lovenox Code status: Full Prognosis: extremely guarded Disposition: inpatient PCU; PT OT SLT Time Spent With Patient Time: Total time spent is greater than 50% in coordination of care (as documented) at patient's floor/unit and/or counseling patient:
[2021-12-22] MEDS: DOCUSATE SODIUM 100 MG CAPSULE PO SCH ×2 (08:52→20:29)
[2021-12-22] MEDS: ENOXAPARIN 40 MG/0.4 ML SYRINGE SQ SCH (08:53)
[2021-12-22] MEDS: LEVOTHYROXINE 50 MCG TABLET PO SCH (08:53)
--- NOTE | 2021-12-22 08:56 | Internal Med Progress Note ---
SUBJECTIVE Subjective Patient information: Note initiated : 12/22/21 at 8:54 am Service Date, if different from initiated Date: [] Patient: Amna Wei a 81 y/o F admitted on 12/19/21 for weakness/COVID+. Chief Complaint: [] Interval history: Ms. Wei is a 81 year old F Presents ED with increasing weakness poor appetite. Patient not eating and dr inking very well. Per family she also has some very mild confusion more so is lethargic and drowsy.. Extremely weak she could not get out of bed. Patient diagnosed with COVID several days ago and was prescribed Paxilovid. Chest x-ray in the ED unremarkable. CT showed age-related degenerative changes in the brain. In the ED she was found found to have a potassium of 2.6 and sodium 105 with a h ypochloridemia as well. Leukopenia mild thrombocytopenia. Lactic acid unremarkable. Potential culprit medications for hyponatremia could be the hydrochlorothiazide she is on She denies any nausea vomiting or diarrhea. No chest pain. She has a very mild nonproductive cough but denies shortness of breath. She appeared to be dry on a presentation was given IV fluid boluses in the ED. 12/20: Serum sodium initially improved to 109 yesterday evening, but this morning went back down to 105. Serum potassium improved to 3.7. On room air. Patient is c/o general weakness. Denies shortness of breath. c/o cough, denies wheezing. Denies fever, chills, or sweating. As per dump grounds checker recs: 1200cc/day fluid restriction NaCl 2gm PO x1 Sodium phosphate 250mg PO QID Serum sodium q2hr Goal of correction: <8mEq/24 hours Goal serum sodium level >130 12/21: Serum sodium 110, potassium 2.9 this morning. Nursing has noticed swallowing difficulties. Patient denies any chest pain or palpitations. She denies any muscle cramps or muscle weakness. She denies any confusions or lethargy's. She is still complain of general weakness. 1200cc/day fluid restriction Sodium phosphate 500mg PO QID Sodium bicarbonate 650mg PO TID 3% sodium chloride 500ml @15cc/hr K rider 20mEq IV once Potassium chloride 40mEq PO BID Serum sodium q4hr Last day of Paxlovid therapy. Physical therapy Occupational Therapy and speech therapy evaluation and treatments. 12/22: Patient is on 2 L/min of oxygen. A large amount of phlegm was being sucked out earlier by RT. Sodium level 115, potassium level 3.5. Patient is c/o general weakness. Denies shortness of breath. c/o cough, denies wheezing. Denies fever, chills, or sweating. 1200cc/day fluid restriction Potassium phosphate 40mEq in sodium chloride infusing at 63ml/hr Serum sodium q4hr Physical therapy, occupational therapy, and speech therapy evaluations and treatments Constitutional Vitals: Vital Signs Temp Pulse Resp BP Pulse Ox O2 Del Method O2 Flow Rate 37.2 C 70 16 120/56 97 2 12/22/21 08:01 12/22/21 08:01 12/22/21 08:01 12/22/21 08:01 12/22/21 08:01 12/22/21 08:01 12/22/21 08:01 Period Temp Pulse Resp BP Sys/Kern Pulse Ox O2 Del Method O2 Flow Rate Last 24 Hr 36.8 C-37.3 C 62-80 13-18 102-136/46-80 87-100 Nasal Cannula- Room Air 2-3 Intake and Output 12/21/21 12/22/21 12/22/21 21:59 05:59 13:59 Intake Total 340 500 Output Total 175 525 Balance 165 -25 Weight 76.113 kg Intake & Output: Intake & Output 12/21/21 12/22/21 12/22/21 21:59 05:59 13:59 Intake Total 340 500 Output Total 175 525 Balance 165 -25 Weight 76.113 kg Intake: IV 340 0 Potassium Chloride 20 Meq In 260 Dextrose 5% in Water 250 ml @ 130 mls/hr IV ONCE ONE Rx#: [id number] Sodium Chloride 3% 500 ml @ 15 80 0 mls/hr IV ONCE ONE Rx#: [id number] Oral 500 Output: Urine Catheter Amount 175 525 Other: Urine Appearance Clear Clear Marquez Clear Urine Color Dark Yellow Dark Yellow Marquez Dark Yellow Urine Odor Normal Normal Stool Size Small Stool Color Brown Stool Consistency Desi # Bowel Movements 1 0 # of times incontinent of 0 0 Bowels Head Head exam: Present atraumatic and normal inspection Eye Eye exam: Present normal appearance ENT ENT exam: Present mucous membranes moist, normal exam and normal external ear exam Additional comments: Nasal cannula in place Neck Neck exam: Present normal inspection Respiratory Respiratory exam: Present rhonchi Cardiovascular Cardiovascular exam: Present normal rate and rhythm GI/Abdominal GI/Abdominal exam: Present normal bowel sounds Back Exam Back exam: Present normal inspection Neurological Exam Neurological exam: Present alert and oriented X3 Skin Skin exam: Present intact and warm OBJ DATA Labs CBC & Chem 7: 12/21/21 05:21 12/22/21 05:20 Labs: Abnormal Lab Results 12/22/21 12/22/21 12/21/21 05:20 02:09 22:10 WBC MCHC RDW Plt Count Immature Gran % (Auto) Lymph % (Auto) Stanley % (Auto) Lymph # (Auto) Stanley # (Auto) Immature Gran # POC Sodium Sodium 115 L* 113 L* 111 L* POC Potassium Potassium POC Chloride Chloride 82 L Carbon Dioxide 21 L POC Total CO2 POC BUN BUN 5 L Creatinine 0.3 L POC Creatinine POC Glucose Osmolality Uric Acid Calcium 7.5 L POC WB Ioniz Calcium Phosphorus 2.1 L Total Bilirubin 1.5 H AST Total Protein 5.6 L Albumin 3.0 L Cortisol AM Sample Urine Protein 12/21/21 12/21/21 12/21/21 19:39 18:13 14:11 WBC MCHC RDW Plt Count Immature Gran % (Auto) Lymph % (Auto) Stanley % (Auto) Lymph # (Auto) Stanley # (Auto) Immature Gran # POC Sodium Sodium 113 L* 125 L 108 L* POC Potassium Potassium POC Chloride Chloride Carbon Dioxide POC Total CO2 POC BUN BUN Creatinine POC Creatinine POC Glucose Osmolality Uric Acid Calcium POC WB Ioniz Calcium Phosphorus Total Bilirubin AST Total Protein Albumin Cortisol AM Sample Urine Protein 12/21/21 12/21/21 12/21/21 09:55 05:21 05:21 WBC MCHC 36.6 H RDW 17.2 H Plt Count 80 L Immature Gran % (Auto) 1.2 H Lymph % (Auto) 12.8 L Stanley % (Auto) 16.3 H Lymph # (Auto) 0.62 L Stanley # (Auto) Immature Gran # 0.06 H POC Sodium Sodium 110 L* 110 L* POC Potassium Potassium 2.9 L* POC Chloride Chloride 78 L Carbon Dioxide 20 L POC Total CO2 POC BUN BUN 4 L Creatinine 0.3 L POC Creatinine POC Glucose Osmolality Uric Acid Calcium 7.4 L POC WB Ioniz Calcium Phosphorus 1.5 L Total Bilirubin 1.4 H AST 32 H Total Protein Albumin Cortisol AM Sample Urine Protein 12/21/21 12/20/21 12/20/21 01:19 22:15 20:10 WBC MCHC RDW Plt Count Immature Gran % (Auto) Lymph % (Auto) Stanley % (Auto) Lymph # (Auto) Stanley # (Auto) Immature Gran # POC Sodium Sodium 110 L* 111 L* 108 L* POC Potassium Potassium POC Chloride Chloride Carbon Dioxide POC Total CO2 POC BUN BUN Creatinine POC Creatinine POC Glucose Osmolality Uric Acid Calcium POC WB Ioniz Calcium Phosphorus Total Bilirubin AST Total Protein Albumin Cortisol AM Sample Urine Protein 12/20/21 12/20/21 12/20/21 18:00 16:00 14:13 WBC MCHC RDW Plt Count Immature Gran % (Auto) Lymph % (Auto) Stanley % (Auto) Lymph # (Auto) Stanley # (Auto) Immature Gran # POC Sodium Sodium 106 L* 106 L* 106 L* POC Potassium Potassium POC Chloride Chloride Carbon Dioxide POC Total CO2 POC BUN BUN Creatinine POC Creatinine POC Glucose Osmolality Uric Acid Calcium POC WB Ioniz Calcium Phosphorus Total Bilirubin AST Total Protein Albumin Cortisol AM Sample Urine Protein 12/20/21 12/20/21 12/20/21 12:17 10:20 08:19 WBC MCHC RDW Plt Count Immature Gran % (Auto) Lymph % (Auto) Stanley % (Auto) Lymph # (Auto) Stanley # (Auto) Immature Gran # POC Sodium Sodium 106 L* 106 L* 105 L* POC Potassium Potassium POC Chloride Chloride Carbon Dioxide POC Total CO2 POC BUN BUN Creatinine POC Creatinine POC Glucose Osmolality Uric Acid Calcium POC WB Ioniz Calcium Phosphorus Total Bilirubin AST Total Protein Albumin Cortisol AM Sample Urine Protein 12/20/21 12/20/21 12/20/21 05:27 05:22 05:22 WBC 4.0 L MCHC 37.0 H RDW 17.1 H Plt Count 90 L Immature Gran % (Auto) 1.2 H Lymph % (Auto) Stanley % (Auto) 24.5 H Lymph # (Auto) 0.76 L Stanley # (Auto) 0.99 H Immature Gran # POC Sodium 107 L* Sodium 105 L* POC Potassium Potassium POC Chloride 75 L Chloride 74 L Carbon Dioxide 21 L POC Total CO2 21.0 L POC BUN 4 L BUN 5 L Creatinine 0.3 L POC Creatinine < 0.2 L POC Glucose Osmolality Uric Acid Calcium 7.4 L POC WB Ioniz Calcium 0.90 L Phosphorus 1.1 L Total Bilirubin 1.3 H AST 39 H Total Protein Albumin Cortisol AM Sample Urine Protein 12/19/21 12/19/21 12/19/21 20:16 15:04 12:27 WBC MCHC RDW Plt Count Immature Gran % (Auto) Lymph % (Auto) Stanley % (Auto) Lymph # (Auto) Stanley # (Auto) Immature Gran # POC Sodium 107 L* 109 L* Sodium POC Potassium 3.2 L 2.6 L* Potassium POC Chloride 72 L 71 L Chloride Carbon Dioxide POC Total CO2 POC BUN 4 L 3 L BUN Creatinine POC Creatinine 0.4 L 0.4 L POC Glucose 109 H 120 H Osmolality Uric Acid Calcium POC WB Ioniz Calcium 0.93 L 0.91 L Phosphorus Total Bilirubin AST Total Protein Albumin Cortisol AM Sample Urine Protein 100 A 12/19/21 12/19/21 12/19/21 11:21 11:21 06:42 WBC MCHC RDW Plt Count Immature Gran % (Auto) Lymph % (Auto) Stanley % (Auto) Lymph # (Auto) Stanley # (Auto) Immature Gran # POC Sodium 109 L* Sodium 107 L* POC Potassium 2.4 L* Potassium POC Chloride 71 L Chloride Carbon Dioxide POC Total CO2 POC BUN 4 L BUN Creatinine POC Creatinine 0.3 L POC Glucose 124 H Osmolality Uric Acid Calcium POC WB Ioniz Calcium 0.88 L Phosphorus Total Bilirubin AST Total Protein Albumin Cortisol AM Sample 33.7 H Urine Protein 12/19/21 06:42 WBC MCHC RDW Plt Count Immature Gran % (Auto) Lymph % (Auto) Stanley % (Auto) Lymph # (Auto) Stanley # (Auto) Immature Gran # POC Sodium Sodium POC Potassium Potassium POC Chloride Chloride Carbon Dioxide POC Total CO2 POC BUN BUN Creatinine POC Creatinine POC Glucose Osmolality 215 L Uric Acid 1.2 L Calcium POC WB Ioniz Calcium Phosphorus Total Bilirubin AST Total Protein Albumin Cortisol AM Sample Urine Protein Meds: Medications Acetaminophen (Acetaminophen 325 Mg Tablet) 650 mg PO Q6HP PRN; Protocol PRN Reason: Per Pain Protocol/Fever > 101 Albuterol/Ipratropium (Ipratropium/Albuterol 3 Ml Ampul.Neb) 3 ml NEB Q4HP PRN PRN Reason: Shortness Of Breath Benzonatate (Benzonatate 100 Mg Capsule) 200 mg PO TIDP PRN PRN Reason: Cough Last Admin: 12/20/21 09:02 Dose: 200 mg Citric Acid/Sodium Citrate (Citric Acid/Sodium Citrate 15 Ml Oral.Salma) 30 ml PO TIDCC [facility] Diltiazem HCl (Diltiazem 240 Mg Cap.Xl.24h) 240 mg PO HS [facility] Last Admin: 12/21/21 21:34 Dose: 240 mg Docusate Sodium (Docusate Sodium 100 Mg Capsule) 100 mg PO BID [facility] Last Admin: 12/21/21 21:34 Dose: 100 mg Enoxaparin Sodium (Enoxaparin 40 Mg/0.4 Ml Syringe) 40 mg SQ DAILY [facility] Last Admin: 12/21/21 07:49 Dose: 40 mg Heparin Sodium (Porcine) (Heparin Flush 10 Units/Ml 5 Ml Syringe) 2 ml IV Q12 [facility] Last Admin: 12/21/21 21:34 Dose: Not Given Magnesium Sulfate (Magnesium Sulfate) 2 gm in 50 mls @ 50 mls/hr IV UD PRN PRN Reason: Magnesium </= 1.6 Potassium Phosphate 40 meq/ (Sodium Chloride) 509.0909 mls @ 63.636 mls/hr IV 0900 [facility] Latanoprost (Latanoprost Ophth Drops 2.5ml Bottle) 1 gtt OU HS [facility] Last Admin: 12/21/21 21:36 Dose: Not Given Levothyroxine Sodium (Levothyroxine 50 Mcg Tablet) 50 mcg PO ACB [facility] Last Admin: 12/21/21 07:50 Dose: 50 mcg Ondansetron HCl (Ondansetron 4 Mg/2 Ml Vial) 4 mg IV Q4HP PRN PRN Reason: Nausea And Vomiting Polyethylene Glycol (Polyethylene Glycol 3350 17 Gm Packet) 17 gm PO DAILYP PRN PRN Reason: Constipation Senna (Sennosides 1 Tablet) 2 tab PO DAILYP PRN PRN Reason: Constipation Sodium Chloride (0.9 % Sodium Chloride 10 Ml Syringe) 10 ml IV Q8 [facility] Last Admin: 12/22/21 05:06 Dose: 10 ml Sodium Chloride (0.9 % Sodium Chloride 10 Ml Syringe) 10 ml IV Q12 [facility] Last Admin: 12/21/21 21:35 Dose: 10 ml A/P Assessment and plan (1) COVID-19 virus infection: Status: Acute (2) Acute hyponatremia: Status: Acute (3) Hypokalemia due to loss of potassium: Status: Acute (4) Hypothyroidism, acquired: Status: Chronic (5) Hypertension, essential: Status: Chronic Narrative A/P Narrative: Assessment and Plans: 1. Plan of Treatment: Assessment and Plans: 1. Acute hyponatremia: Consulted dump grounds checker Dr. Escamilla, recs. appreciated As per dump grounds checker recs: 1200cc/day fluid restriction Potassium phosphate 40mEq in sodium chloride infusing at 63ml/hr Serum sodium q4hr Goal of correction: <8mEq/24 hours Goal serum sodium level >130 2. CoVID pneumonia: Isolation: airborne and contact Supplemental oxygen therapy as needed Finish Paxlovid therapy on 12/21 3. Hypokalemia: Potassium phosphate 40mEq in sodium chloride infusing at 63ml/hr CMP daily to trend serum potassium level Also check serum Mg level daily and replace if needed 4. Essential hypertension: Normotensive Diltiazem CD Losartan d/c HCTZ from home regimen given hyponatremia 5. Hypothyroidism: Oral thyroid replacement GI ppx: not indicated DVT ppx: Lovenox Code status: Full Prognosis: extremely guarded Disposition: inpatient PCU; PT OT SLT Time Spent With Patient Time: Total time spent is greater than 50% in coordination of care (as documented) at patient's floor/unit and/or counseling patient: Total time spent with greater than 50% in coordination of care (as documented) at patient's floor/unit and/or counseling patient:: 35 - 50 minutes QUALITY VTE Deep Vein Thrombosis/Pulmonary Embolism Present on Admission: No
[2021-12-22] MEDS ORDERED: POTASSIUM PHOSPHATE 40 MEQ in DEXTROSE 5% IN WATER 500 ML IV SCH (09:00)
[2021-12-22] MEDS ORDERED: POTASSIUM PHOSPHATE 40 MEQ in 0.9 % SODIUM CHLORIDE 500 ML IV SCH (09:00)
[2021-12-22 09:15] LABS: Basophils # (Auto) 0.04 K/mcL (0.00-0.30); Basophils % (Auto) 0.3 % (0.0-2.0); Eosinophils # (Auto) 0 K/mcL (0.00-0.70); Eosinophils % (Auto) 0 % (0.0-7.0); Hemoglobin 11.7 g/dL (11.2-15.7); Lymphocytes # (Auto) 0.88 K/mcL (1.50-4.80); Lymphocytes % (Auto) 6.1 % (15.5-49.0); Mean Cell Volume 95.9 fL (80.0-100.0); Mean Corpuscular HGB Conc 35.5 g/dL (31.0-36.0); Mean Platelet Volume 10.5 fL (8.8-12.5); Monocytes % (Auto) 10.5 % (1.0-12.0); Neutrophils % (Auto) 81.1 % (38.0-78.0); Platelet Count 78 K/mcL (140-440); RBC 3.44 M/mcL (3.59-5.38); Red Cell Distribution Width 18.2 % (11.5-14.5); WBC 14.3 K/mcL (4.5-11.0)
[2021-12-22] MEDS: CITRIC ACID/SODIUM CITRATE 15 ML ORAL.SOL PO SCH ×2 (13:04→17:28)
[2021-12-22] MEDS: DILTIAZEM 240 MG CAP.XL.24H PO SCH (20:29)
[2021-12-22] MEDS: LATANOPROST OPHTH DROPS 2.5ML BOTTLE OU SCH (20:30)
[2021-12-23] MEDS ORDERED: SODIUM CHLORIDE 3 % 500 ML IV ONE ×2 (01:55→02:11)
[2021-12-23] MEDS: 0.9 % SODIUM CHLORIDE 10 ML SYRINGE IV SCH ×5 (05:32→20:35)
[2021-12-23] MEDS: ENOXAPARIN 40 MG/0.4 ML SYRINGE SQ SCH (08:05)
[2021-12-23] MEDS: CITRIC ACID/SODIUM CITRATE 15 ML ORAL.SOL PO SCH ×2 (08:05→12:44)
[2021-12-23] MEDS: DOCUSATE SODIUM 100 MG CAPSULE PO SCH ×2 (08:05→21:05)
[2021-12-23] MEDS: LEVOTHYROXINE 50 MCG TABLET PO SCH (08:05)
--- NOTE | 2021-12-23 09:05 | Internal Med Progress Note ---
SUBJECTIVE Subjective Patient information: Note initiated : 12/23/21 at 9:04 am Service Date, if different from initiated Date: [] Patient: Amna Wei a 81 y/o F admitted on 12/19/21 for weakness/COVID+. Chief Complaint: [] Interval history: Ms. Wei is a 81 year old F Presents ED with increasing weakness poor appetite. Patient not eating and dr inking very well. Per family she also has some very mild confusion more so is lethargic and drowsy.. Extremely weak she could not get out of bed. Patient diagnosed with COVID several days ago and was prescribed Paxilovid. Chest x-ray in the ED unremarkable. CT showed age-related degenerative changes in the brain. In the ED she was found found to have a potassium of 2.6 and sodium 105 with a h ypochloridemia as well. Leukopenia mild thrombocytopenia. Lactic acid unremarkable. Potential culprit medications for hyponatremia could be the hydrochlorothiazide she is on She denies any nausea vomiting or diarrhea. No chest pain. She has a very mild nonproductive cough but denies shortness of breath. She appeared to be dry on a presentation was given IV fluid boluses in the ED. 12/20: Serum sodium initially improved to 109 yesterday evening, but this morning went back down to 105. Serum potassium improved to 3.7. On room air. Patient is c/o general weakness. Denies shortness of breath. c/o cough, denies wheezing. Denies fever, chills, or sweating. As per director medical surgical recs: 1200cc/day fluid restriction NaCl 2gm PO x1 Sodium phosphate 250mg PO QID Serum sodium q2hr Goal of correction: <8mEq/24 hours Goal serum sodium level >130 12/21: Serum sodium 110, potassium 2.9 this morning. Nursing has noticed swallowing difficulties. Patient denies any chest pain or palpitations. She denies any muscle cramps or muscle weakness. She denies any confusions or lethargy's. She is still complain of general weakness. 1200cc/day fluid restriction Sodium phosphate 500mg PO QID Sodium bicarbonate 650mg PO TID 3% sodium chloride 500ml @15cc/hr K rider 20mEq IV once Potassium chloride 40mEq PO BID Serum sodium q4hr Last day of Paxlovid therapy. Physical therapy Occupational Therapy and speech therapy evaluation and treatments. 12/22: Patient is on 2 L/min of oxygen. A large amount of phlegm was being sucked out earlier by RT. Sodium level 115, potassium level 3.5. Patient is c/o general weakness. Denies shortness of breath. c/o cough, denies wheezing. Denies fever, chills, or sweating. 1200cc/day fluid restriction Potassium phosphate 40mEq in sodium chloride infusing at 63ml/hr Serum sodium q4hr Physical therapy, occupational therapy, and speech therapy evaluations and treatments 12/23: Patient is currently on room air. She has been evaluated by speech therapist and currently on dysphagia diet. Last sodium level from earlier was 119, potassium level pending. Patient states her strength has improved. Denies chest pain or palpitation. Denies shortness of breath. Denies fever, chills, or sweating. 1200cc/day fluid restriction 3% saline infusing at 15cc/hr KCL 40mEq PO BID Sodium q4hr Continue to work with Dr. Escamilla for electrolyte management, recs. appreciated Physical therapy, occupational therapy evaluations and treatments Constitutional Vitals: Vital Signs Temp Pulse Resp BP Pulse Ox O2 Del Method O2 Flow Rate 37.0 C 75 24 H 100/74 95 0 12/23/21 08:01 12/23/21 08:01 12/23/21 08:01 12/23/21 08:01 12/23/21 08:01 12/23/21 02:00 12/22/21 18:01 Period Temp Pulse Resp BP Sys/Kern Pulse Ox O2 Del Method O2 Flow Rate Last 24 Hr 36.4 C-37.1 C 62-80 03-21 100-125/54-83 92-98 Room Air-Room Air 0 Intake and Output 12/22/21 12/23/21 12/23/21 21:59 05:59 13:59 Intake Total 1339.0909 285 Output Total 550 600 Balance 789.0909 -315 Weight 75.523 kg Intake & Output: Intake & Output 12/22/21 12/23/21 12/23/21 21:59 05:59 13:59 Intake Total 1339.0909 285 Output Total 550 600 Balance 789.0909 -315 Weight 75.523 kg Intake: IV 739.0909 45 Potassium Phosphate 40 Meq In 509.0909 Sodium Chloride 0.9% 500 ml @ 63.636 mls/hr IV 0900 BREEZY Rx#: [id number] Sodium Chloride 3% 500 ml @ 15 230 45 mls/hr IV ONCE ONE Rx#: [id number] Oral 600 240 Output: Urine Catheter Amount 550 600 Other: Meal Dinner Percent of Meal Consumed 50% Feeding Ability Assist with Tray Set Up Urine Appearance Cloudy Clear Urine Color Light Arely Bright Yellow Stool Size Large Stool Color Brown Stool Consistency Soft # Bowel Movements 1 Head Head exam: Present atraumatic and normal inspection Eye Eye exam: Present normal appearance ENT ENT exam: Present mucous membranes moist, normal exam and normal external ear exam Neck Neck exam: Present normal inspection Respiratory Respiratory exam: Present normal respiratory exam Cardiovascular Cardiovascular exam: Present normal rate and rhythm GI/Abdominal GI/Abdominal exam: Present normal bowel sounds Back Exam Back exam: Present normal inspection Neurological Exam Neurological exam: Present alert and oriented X3 Skin Skin exam: Present intact and warm OBJ DATA Labs CBC & Chem 7: 12/22/21 05:20 12/23/21 01:07 Labs: Abnormal Lab Results 12/23/21 12/22/21 12/22/21 01:07 20:53 17:45 WBC RBC Hct MCHC RDW Plt Count Immature Gran % (Auto) Neut % (Auto) Lymph % (Auto) [place] % (Auto) Lymph # (Auto) [place] # (Auto) Immature Gran # Absolute Neutrophils Sodium 119 L* 121 L 119 L* Potassium Chloride Carbon Dioxide BUN Creatinine Calcium Phosphorus Total Bilirubin AST Total Protein Albumin 12/22/21 12/22/21 12/22/21 13:14 11:00 05:20 WBC RBC Hct MCHC RDW Plt Count Immature Gran % (Auto) Neut % (Auto) Lymph % (Auto) [place] % (Auto) Lymph # (Auto) [place] # (Auto) Immature Gran # Absolute Neutrophils Sodium 117 L* 115 L* 115 L* Potassium Chloride 82 L Carbon Dioxide 21 L BUN 5 L Creatinine 0.3 L Calcium 7.5 L Phosphorus 2.1 L Total Bilirubin 1.5 H AST Total Protein 5.6 L Albumin 3.0 L 12/22/21 12/22/21 12/21/21 05:20 02:09 22:10 WBC 14.3 H RBC 3.44 L Hct 33.0 L MCHC RDW 18.2 H Plt Count 78 L Immature Gran % (Auto) 2.0 H Neut % (Auto) 81.1 H Lymph % (Auto) 6.1 L [place] % (Auto) Lymph # (Auto) 0.88 L [place] # (Auto) 1.50 H Immature Gran # 0.28 H Absolute Neutrophils 11.63 H Sodium 113 L* 111 L* Potassium Chloride Carbon Dioxide BUN Creatinine Calcium Phosphorus Total Bilirubin AST Total Protein Albumin 12/21/21 12/21/21 12/21/21 19:39 18:13 14:11 WBC RBC Hct MCHC RDW Plt Count Immature Gran % (Auto) Neut % (Auto) Lymph % (Auto) [place] % (Auto) Lymph # (Auto) [place] # (Auto) Immature Gran # Absolute Neutrophils Sodium 113 L* 125 L 108 L* Potassium Chloride Carbon Dioxide BUN Creatinine Calcium Phosphorus Total Bilirubin AST Total Protein Albumin 12/21/21 12/21/21 12/21/21 09:55 05:21 05:21 WBC RBC Hct MCHC 36.6 H RDW 17.2 H Plt Count 80 L Immature Gran % (Auto) 1.2 H Neut % (Auto) Lymph % (Auto) 12.8 L [place] % (Auto) 16.3 H Lymph # (Auto) 0.62 L [place] # (Auto) Immature Gran # 0.06 H Absolute Neutrophils Sodium 110 L* 110 L* Potassium 2.9 L* Chloride 78 L Carbon Dioxide 20 L BUN 4 L Creatinine 0.3 L Calcium 7.4 L Phosphorus 1.5 L Total Bilirubin 1.4 H AST 32 H Total Protein Albumin 12/21/21 12/20/21 12/20/21 01:19 22:15 20:10 WBC RBC Hct MCHC RDW Plt Count Immature Gran % (Auto) Neut % (Auto) Lymph % (Auto) [place] % (Auto) Lymph # (Auto) [place] # (Auto) Immature Gran # Absolute Neutrophils Sodium 110 L* 111 L* 108 L* Potassium Chloride Carbon Dioxide BUN Creatinine Calcium Phosphorus Total Bilirubin AST Total Protein Albumin 12/20/21 12/20/21 12/20/21 18:00 16:00 14:13 WBC RBC Hct MCHC RDW Plt Count Immature Gran % (Auto) Neut % (Auto) Lymph % (Auto) [place] % (Auto) Lymph # (Auto) [place] # (Auto) Immature Gran # Absolute Neutrophils Sodium 106 L* 106 L* 106 L* Potassium Chloride Carbon Dioxide BUN Creatinine Calcium Phosphorus Total Bilirubin AST Total Protein Albumin 12/20/21 12/20/21 12/20/21 12:17 10:20 08:19 WBC RBC Hct MCHC RDW Plt Count Immature Gran % (Auto) Neut % (Auto) Lymph % (Auto) [place] % (Auto) Lymph # (Auto) [place] # (Auto) Immature Gran # Absolute Neutrophils Sodium 106 L* 106 L* 105 L* Potassium Chloride Carbon Dioxide BUN Creatinine Calcium Phosphorus Total Bilirubin AST Total Protein Albumin Meds: Medications Acetaminophen (Acetaminophen 325 Mg Tablet) 650 mg PO Q6HP PRN; Protocol PRN Reason: Per Pain Protocol/Fever > 101 Albuterol/Ipratropium (Ipratropium/Albuterol 3 Ml Ampul.Neb) 3 ml NEB Q4HP PRN PRN Reason: Shortness Of Breath Benzonatate (Benzonatate 100 Mg Capsule) 200 mg PO TIDP PRN PRN Reason: Cough Last Admin: 12/20/21 09:02 Dose: 200 mg Citric Acid/Sodium Citrate (Citric Acid/Sodium Citrate 15 Ml Oral.Salma) 30 ml PO TIDCC [facility] Last Admin: 12/23/21 08:05 Dose: 30 ml Diltiazem HCl (Diltiazem 240 Mg Cap.Xl.24h) 240 mg PO HS [facility] Last Admin: 12/22/21 20:29 Dose: 240 mg Docusate Sodium (Docusate Sodium 100 Mg Capsule) 100 mg PO BID [facility] Last Admin: 12/23/21 08:05 Dose: 100 mg Enoxaparin Sodium (Enoxaparin 40 Mg/0.4 Ml Syringe) 40 mg SQ DAILY [facility] Last Admin: 12/23/21 08:05 Dose: 40 mg Heparin Sodium (Porcine) (Heparin Flush 10 Units/Ml 5 Ml Syringe) 2 ml IV Q12 [facility] Last Admin: 12/23/21 08:27 Dose: Not Given Magnesium Sulfate (Magnesium Sulfate) 2 gm in 50 mls @ 50 mls/hr IV UD PRN PRN Reason: Magnesium </= 1.6 Sodium Chloride (Sodium Chloride 3%) 500 mls @ 15 mls/hr IV ONCE ONE Stop: 12/24/21 11:14 Last Infusion: 12/23/21 05:02 Dose: 0 mls/hr Latanoprost (Latanoprost Ophth Drops 2.5ml Bottle) 1 gtt OU HS [facility] Last Admin: 12/22/21 20:30 Dose: 1 gtt Levothyroxine Sodium (Levothyroxine 50 Mcg Tablet) 50 mcg PO ACB [facility] Last Admin: 12/23/21 08:05 Dose: 50 mcg Ondansetron HCl (Ondansetron 4 Mg/2 Ml Vial) 4 mg IV Q4HP PRN PRN Reason: Nausea And Vomiting Polyethylene Glycol (Polyethylene Glycol 3350 17 Gm Packet) 17 gm PO DAILYP PRN PRN Reason: Constipation Senna (Sennosides 1 Tablet) 2 tab PO DAILYP PRN PRN Reason: Constipation Sodium Chloride (0.9 % Sodium Chloride 10 Ml Syringe) 10 ml IV Q8 [facility] Last Admin: 12/23/21 05:32 Dose: 10 ml Sodium Chloride (0.9 % Sodium Chloride 10 Ml Syringe) 10 ml IV Q12 [facility] Last Admin: 12/23/21 08:27 Dose: Not Given A/P Assessment and plan (1) COVID-19 virus infection: Status: Acute (2) Acute hyponatremia: Status: Acute (3) Hypokalemia due to loss of potassium: Status: Acute (4) Hypothyroidism, acquired: Status: Chronic (5) Hypertension, essential: Status: Chronic (6) Dysphagia: Status: Acute Narrative A/P Narrative: Assessment and Plans: 1. Plan of Treatment: Assessment and Plans: 1. Acute hyponatremia: Consulted director medical surgical Dr. Escamilla, recs. appreciated As per director medical surgical recs: 1200cc/day fluid restriction 3% saline infusing at 15cc/hr Sodium q4hr Goal of correction: <8mEq/24 hours Goal serum sodium level >130 2. CoVID pneumonia: Isolation: airborne and contact Supplemental oxygen therapy as needed, currently on room air Finish Paxlovid therapy on 12/21 3. Hypokalemia: KCL 40mEq PO BID CMP daily to trend serum potassium level Also check serum Mg level daily and replace if needed 4. Essential hypertension: Normotensive Diltiazem CD Losartan d/c HCTZ from home regimen given hyponatremia 5. Hypothyroidism: Oral thyroid replacement 6. Dysphagia: Speech therapy evaluation and treatment Dysphagia diet GI ppx: not indicated DVT ppx: Lovenox Code status: Full Prognosis: guarded Disposition: inpatient PCU; PT OT SLT Time Spent With Patient Time: Total time spent is greater than 50% in coordination of care (as documented) at patient's floor/unit and/or counseling patient: Total time spent with greater than 50% in coordination of care (as documented) at patient's floor/unit and/or counseling patient:: 35 - 50 minutes QUALITY VTE Deep Vein Thrombosis/Pulmonary Embolism Present on Admission: No
[2021-12-23 11:52] LABS: Basophils # (Auto) 0.02 K/mcL (0.00-0.30); Basophils % (Auto) 0.3 % (0.0-2.0); Eosinophils # (Auto) 0.01 K/mcL (0.00-0.70); Eosinophils % (Auto) 0.2 % (0.0-7.0); Hematocrit 30.4 % (34.1-44.9); Hemoglobin 10.8 g/dL (11.2-15.7); Lymphocytes # (Auto) 0.81 K/mcL (1.50-4.80); Lymphocytes % (Auto) 12.7 % (15.5-49.0); Mean Cell Volume 93.8 fL (80.0-100.0); Mean Corpuscular HGB Conc 35.5 g/dL (31.0-36.0); Mean Platelet Volume 10.1 fL (8.8-12.5); Monocytes # (Auto) 1.45 K/mcL (0.10-0.90); Monocytes % (Auto) 22.7 % (1.0-12.0); Neutrophils % (Auto) 62.4 % (38.0-78.0); Platelet Count 107 K/mcL (140-440); RBC 3.24 M/mcL (3.59-5.38); Red Cell Distribution Width 18.2 % (11.5-14.5); WBC 6.4 K/mcL (4.5-11.0)
[2021-12-23 11:58] LABS: ALT/SGPT 18 U/L (<40); AST/SGOT 22 U/L (<32); Albumin 3.3 gm/dL (3.2-5.2); Albumin/Globulin Ratio 1.2 (1.0-2.3); Alkaline Phosphatase 52 U/L (39-117); Bilirubin,Total 0.7 mg/dL (0.1-1.0); Blood Urea Nitrogen 5 mg/dL (8-23); Calcium 7.9 mg/dL (8.6-10.4); Carbon Dioxide 26 mmol/L (22-30); Chloride 85 mmol/L (96-108); Globulin 2.7 gm/dL (2.2-3.7); Glomerular Filtration Rate 99; Glucose 96 mg/dL (70-105); Phosphorous 1.6 mg/dL (2.5-4.5)
--- NOTE | 2021-12-23 12:14 | Nephrology Progress Note ---
SUBJECTIVE Subjective Patient information: Note initiated : 12/23/21 at 12:12 pm Patient: Amna Wei 81 y/o F admitted on 12/19/21 for weakness/COVID+. Chief Complaint: Weakness Pertinent ROS: Weakness Dysphagia Constitutional Vitals: Vital Signs Temp Pulse Resp BP Pulse Ox O2 Del Method O2 Flow Rate 98.9 F 66 25 H 129/73 97 0 12/23/21 12:02 12/23/21 10:01 12/23/21 12:02 12/23/21 12:02 12/23/21 12:02 12/23/21 12:02 12/22/21 18:01 Period Temp Pulse Resp BP Sys/Kern Pulse Ox O2 Del Method O2 Flow Rate Last 24 Hr 97.6 F-98.9 F 62-80 12-25 100-129/54-76 92-98 Room Air-Room Air 0 Intake and Output 12/22/21 12/23/21 12/23/21 21:59 05:59 13:59 Intake Total 1339.0909 285 Output Total 550 600 Balance 789.0909 -315 Weight 166 lb 8 oz Intake & Output: Intake & Output 12/22/21 12/23/21 12/23/21 21:59 05:59 13:59 Intake Total 1339.0909 285 Output Total 550 600 Balance 789.0909 -315 Weight 166 lb 8 oz Intake: IV 739.0909 45 Potassium Phosphate 40 Meq In 509.0909 Sodium Chloride 0.9% 500 ml @ 63.636 mls/hr IV 0900 BREEZY Rx#: [id number] Sodium Chloride 3% 500 ml @ 15 230 45 mls/hr IV ONCE ONE Rx#: [id number] Oral 600 240 Output: Urine Catheter Amount 550 600 Other: Meal Dinner Percent of Meal Consumed 50% Feeding Ability Assist with Tray Set Up Urine Appearance Cloudy Clear Marquez Cloudy Sediment Urine Color Light Arely Bright Yellow Marquez Yellow Stool Size Large Stool Color Brown Stool Consistency Soft # Bowel Movements 1 General appearance: cooperative and no acute distress Head Head exam: Present normal inspection Eye Eye exam: Present normal appearance ENT ENT exam: Present mucous membranes moist Respiratory Respiratory exam: Absent respiratory distress Cardiovascular Cardiovascular exam: Present normal rate and rhythm GI/Abdominal GI/Abdominal exam: Present soft; Absent tenderness Extremities Exam Extremities exam: Absent joint swelling or pedal edema Neurological Exam Neurological exam: Present alert and oriented X3 Psychiatric Psychiatric exam: Present normal affect and normal mood Skin Skin exam: Present warm; Absent rash A/P Assessment and plan (1) Hyponatremia: Assessment and plan: Amna Wei is a 81-year-old female brought to ED by EMS for worsening weakness over the last 24 hours. She was diagnosed with COVID-19 4 days ago. Since that time she has been on Paxlovid that was prescribed by her PCP. In ED, her serum sodium was 105. She was given 2 L NS and admitted to ICU. Her repeat POC serum sodium was 109 after 5 hours. Nephrology consultation was requested for hyponatremia. 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 WORKUP Urinalysis on 12/19/21: Straw, Clear, pH 8.0, SG 1.005, protein 100, blood 0.03, leukocyte esterase negative, urine WBC. CXR on 12/19/21: Normal. CT Head on 12/19/21: Normal age-related degenerative changes in the brain. 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 Severe right maxillary and moderate bilateral frontal sinusitis. Urine Sodium on 12/19/21: 76 PROGRESS Serum sodium range: 12/19: 105-109 12/20: 105-111 12/21: 108-113; 125 was a sampling error (sample obtained proximal to hypertonic saline infusion). 12/22: 113-121 12/23: 119-120 Electrolytes otherwise significant for low phosphorus. Urine output: 1,150 ml reported in the past 24 hours. RECOMMENDATIONS AND PLAN Bicitra 30 ml PO TID discontinued. Nvtotn-Cros-M 500 mg PO QID and Sodium Chloride 1 gram PO TID ordered. Continue 1200 ml/day fluid restriction. Target serum sodium until today: 120-125. Status: Chronic Time Spent With Patient Time: Total time spent is greater than 50% in coordination of care (as documented) at patient's floor/unit and/or counseling patient:
[2021-12-23] MEDS: PHOSPHORUS 250 MG TABLET PO SCH ×3 (12:52→21:05)
[2021-12-23] MEDS: SODIUM CHLORIDE 1 GM TABLET PO SCH ×3 (12:52→21:05)
[2021-12-23] MEDS ORDERED: PHOSPHORUS 250 MG TABLET PO SCH (13:00)
[2021-12-23] MEDS ORDERED: POTASSIUM CHLORIDE 20 MEQ TABLET PO SCH (17:30)
[2021-12-23] MEDS ORDERED: SODIUM CHLORIDE 1 GM TABLET PO ONE ×2 (17:59→23:00)
[2021-12-23] MEDS: TIMOLOL 0.5% OPHTH DROPS BOTTLE 5ML OU SCH (20:33)
[2021-12-23] MEDS: DILTIAZEM 240 MG CAP.XL.24H PO SCH (21:05)
[2021-12-23] MEDS: LATANOPROST OPHTH DROPS 2.5ML BOTTLE OU SCH (21:05)
[2021-12-23] MEDS: ACETAMINOPHEN 325 MG TABLET PO PRN (21:11)
[2021-12-24] MEDS: 0.9 % SODIUM CHLORIDE 10 ML SYRINGE IV SCH ×5 (05:28→21:10)
[2021-12-24] MEDS: ACETAMINOPHEN 325 MG TABLET PO PRN ×2 (05:30→17:05)
[2021-12-24 06:22] LABS: Phosphorous 2.8 mg/dL (2.5-4.5)
[2021-12-24 06:42] LABS: ALT/SGPT 17 U/L (<40); AST/SGOT 23 U/L (<32); Albumin 2.9 gm/dL (3.2-5.2); Alkaline Phosphatase 49 U/L (39-117); Bilirubin,Total 0.8 mg/dL (0.1-1.0); Blood Urea Nitrogen 4 mg/dL (8-23); Calcium 7.9 mg/dL (8.6-10.4); Carbon Dioxide 24 mmol/L (22-30); Chloride 85 mmol/L (96-108); Globulin 2.9 gm/dL (2.2-3.7); Glomerular Filtration Rate 109; Glucose 96 mg/dL (70-105)
[2021-12-24] MEDS ORDERED: SODIUM CHLORIDE 3 % 500 ML IV ONE ×2 (06:47→18:13)
--- NOTE | 2021-12-24 07:02 | Nephrology Progress Note ---
SUBJECTIVE Subjective Patient information: Note initiated : 12/24/21 at 6:58 am Patient: Amna Wei 81 y/o F admitted on 12/19/21 for weakness/COVID+. Chief Complaint: Weakness Pertinent ROS: Weakness Constitutional Vitals: Vital Signs Temp Pulse Resp BP Pulse Ox O2 Del Method O2 Flow Rate 101.0 F H 74 20 115/51 92 2 12/24/21 06:01 12/24/21 06:01 12/24/21 06:01 12/24/21 06:01 12/24/21 06:01 12/24/21 06:01 12/24/21 06:01 Period Temp Pulse Resp BP Sys/Kern Pulse Ox O2 Del Method O2 Flow Rate Last 24 Hr 98.6 F-101.1 F 66-82 13-30 100-150/51-74 90-97 Nasal Cannula- Room Air 2-2 Intake and Output 12/23/21 12/24/21 12/24/21 21:59 05:59 13:59 Intake Total 500 500 Output Total 625 700 Balance -125 -200 Weight 168 lb 14.4 oz Intake & Output: Intake & Output 12/23/21 12/24/21 12/24/21 21:59 05:59 13:59 Intake Total 500 500 Output Total 625 700 Balance -125 -200 Weight 168 lb 14.4 oz Intake: Oral 500 500 Output: Urine Catheter Amount 625 700 Other: Urine Appearance Clear Clear Marquez Clear Urine Color Dark Yellow Yellow Marquez Dark Yellow Urine Odor Strong Normal General appearance: cooperative and no acute distress Head Head exam: Present normal inspection Eye Eye exam: Present normal appearance ENT ENT exam: Present mucous membranes moist Respiratory Respiratory exam: Absent respiratory distress Cardiovascular Cardiovascular exam: Present normal rate and rhythm GI/Abdominal GI/Abdominal exam: Present soft; Absent tenderness Extremities Exam Extremities exam: Absent joint swelling or pedal edema Neurological Exam Neurological exam: Present alert and oriented X3 Psychiatric Psychiatric exam: Present normal affect and normal mood Skin Skin exam: Present warm; Absent rash A/P Assessment and plan (1) Hyponatremia: Assessment and plan: Amna Wei is a 81-year-old female brought to ED by EMS for worsening weakness over the last 24 hours. She was diagnosed with COVID-19 4 days ago. Since that time she has been on Paxlovid that was prescribed by her PCP. In ED, her serum sodium was 105. She was given 2 L NS and admitted to ICU. Her repeat POC serum sodium was 109 after 5 hours. Nephrology consultation was requested for hyponatremia. 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 WORKUP Urinalysis on 12/19/21: Straw, Clear, pH 8.0, SG 1.005, protein 100, blood 0.03, leukocyte esterase negative, urine WBC. CXR on 12/19/21: Normal. CT Head on 12/19/21: Normal age-related degenerative changes in the brain. 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 Severe right maxillary and moderate bilateral frontal sinusitis. Urine Sodium on 12/19/21: 76 PROGRESS Serum sodium range: 12/19: 105-109 12/20: 105-111 12/21: 108-113; 125 was a sampling error (sample obtained proximal to hypertonic saline infusion). 12/22: 113-121 12/23: 119-120 12/24: 117 Urine output: 1,325 ml reported in the past 24 hours. DISCUSSION Serum sodium decreased from 120 to 117 in the past 24 hours despite 5 grams of oral Sodium Chloride and 1200 ml/day fluid restriction. High urine output was considered to be indicating fluid restriction may not be followed, however, ICU staff is confident about her intake. Fluid retention/edema may be the source of high urine output. RECOMMENDATIONS AND PLAN Resume 3% Sodium Chloride infusion. Serum Sodium every 4 hours. Continue Ackoce-Ails-H 500 mg PO QID. Continue 1200 ml/day fluid restriction. Target serum sodium today: 122-125. Status: Chronic Time Spent With Patient Time: Total time spent is greater than 50% in coordination of care (as documented) at patient's floor/unit and/or counseling patient:
[2021-12-24 07:39] LABS: Basophils # (Auto) 0.03 K/mcL (0.00-0.30); Basophils % (Auto) 0.4 % (0.0-2.0); Eosinophils # (Auto) 0.01 K/mcL (0.00-0.70); Eosinophils % (Auto) 0.1 % (0.0-7.0); Hematocrit 31.2 % (34.1-44.9); Hemoglobin 10.9 g/dL (11.2-15.7); Lymphocytes # (Auto) 0.65 K/mcL (1.50-4.80); Lymphocytes % (Auto) 9.6 % (15.5-49.0); Mean Cell Volume 97.2 fL (80.0-100.0); Mean Corpuscular HGB Conc 34.9 g/dL (31.0-36.0); Mean Platelet Volume 9.1 fL (8.8-12.5); Monocytes # (Auto) 2.48 K/mcL (0.10-0.90); Monocytes % (Auto) 36.5 % (1.0-12.0); Neutrophils % (Auto) 50.7 % (38.0-78.0); Platelet Count 130 K/mcL (140-440); RBC 3.21 M/mcL (3.59-5.38); Red Cell Distribution Width 18.6 % (11.5-14.5); WBC 6.8 K/mcL (4.5-11.0)
[2021-12-24] MEDS: LEVOTHYROXINE 50 MCG TABLET PO SCH (07:45)
--- NOTE | 2021-12-24 09:16 | Internal Med Progress Note ---
SUBJECTIVE Subjective Patient information: Note initiated : 12/24/21 at 9:14 am Service Date, if different from initiated Date: [] Patient: Amna Wei a 81 y/o F admitted on 12/19/21 for weakness/COVID+. Chief Complaint: [] Interval history: Ms. Wei is a 81 year old F Presents ED with increasing weakness poor appetite. Patient not eating and dr inking very well. Per family she also has some very mild confusion more so is lethargic and drowsy.. Extremely weak she could not get out of bed. Patient diagnosed with COVID several days ago and was prescribed Paxilovid. Chest x-ray in the ED unremarkable. CT showed age-related degenerative changes in the brain. In the ED she was found found to have a potassium of 2.6 and sodium 105 with a h ypochloridemia as well. Leukopenia mild thrombocytopenia. Lactic acid unremarkable. Potential culprit medications for hyponatremia could be the hydrochlorothiazide she is on She denies any nausea vomiting or diarrhea. No chest pain. She has a very mild nonproductive cough but denies shortness of breath. She appeared to be dry on a presentation was given IV fluid boluses in the ED. 12/20: Serum sodium initially improved to 109 yesterday evening, but this morning went back down to 105. Serum potassium improved to 3.7. On room air. Patient is c/o general weakness. Denies shortness of breath. c/o cough, denies wheezing. Denies fever, chills, or sweating. As per [facility] specialist recs: 1200cc/day fluid restriction NaCl 2gm PO x1 Sodium phosphate 250mg PO QID Serum sodium q2hr Goal of correction: <8mEq/24 hours Goal serum sodium level >130 12/21: Serum sodium 110, potassium 2.9 this morning. Nursing has noticed swallowing difficulties. Patient denies any chest pain or palpitations. She denies any muscle cramps or muscle weakness. She denies any confusions or lethargy's. She is still complain of general weakness. 1200cc/day fluid restriction Sodium phosphate 500mg PO QID Sodium bicarbonate 650mg PO TID 3% sodium chloride 500ml @15cc/hr K rider 20mEq IV once Potassium chloride 40mEq PO BID Serum sodium q4hr Last day of Paxlovid therapy. Physical therapy Occupational Therapy and speech therapy evaluation and treatments. 12/22: Patient is on 2 L/min of oxygen. A large amount of phlegm was being sucked out earlier by RT. Sodium level 115, potassium level 3.5. Patient is c/o general weakness. Denies shortness of breath. c/o cough, denies wheezing. Denies fever, chills, or sweating. 1200cc/day fluid restriction Potassium phosphate 40mEq in sodium chloride infusing at 63ml/hr Serum sodium q4hr Physical therapy, occupational therapy, and speech therapy evaluations and treatments 12/23: Patient is currently on room air. She has been evaluated by speech therapist and currently on dysphagia diet. Last sodium level from earlier was 119, potassium level pending. Patient states her strength has improved. Denies chest pain or palpitation. Denies shortness of breath. Denies fever, chills, or sweating. 1200cc/day fluid restriction 3% saline infusing at 15cc/hr KCL 40mEq PO BID Sodium q4hr Continue to work with Dr. Escamilla for electrolyte management, recs. appreciated Physical therapy, occupational therapy evaluations and treatments 12/24: Serum sodium 117 this morning, potassium 3.4. She is on 2L/min oxygen. Fever with Tmax 38.4 overnight. Patient states her strength has improved. Denies chest pain or palpitation. Denies shortness of breath. Denies fever, chills, or sweating. Good appetite. 1200cc/day fluid restriction 3% saline infusing at 15cc/hr Sodium q4hr Ybmegb-Mscj-Q 500mg PO QID Goal serum sodium level: 122-125 Continue to touch base with PT OT regarding placement. Chest X ray Blood cultures Constitutional Vitals: Vital Signs Temp Pulse Resp BP Pulse Ox O2 Del Method O2 Flow Rate 37.9 C H 82 18 114/54 94 2 12/24/21 08:01 12/24/21 08:01 12/24/21 08:01 12/24/21 08:01 12/24/21 08:01 12/24/21 08:01 12/24/21 08:01 Period Temp Pulse Resp BP Sys/Kern Pulse Ox O2 Del Method O2 Flow Rate Last 24 Hr 37.0 C-38.4 C 66-82 13-30 108-150/51-73 90-97 Nasal Cannula- Room Air 2-2 Intake and Output 12/23/21 12/24/21 12/24/21 21:59 05:59 13:59 Intake Total 500 500 Output Total 625 700 Balance -125 -200 Weight 76.612 kg Intake & Output: Intake & Output 12/23/21 12/24/21 12/24/21 21:59 05:59 13:59 Intake Total 500 500 Output Total 625 700 Balance -125 -200 Weight 76.612 kg Intake: Oral 500 500 Output: Urine Catheter Amount 625 700 Other: Urine Appearance Clear Clear Marquez Clear Urine Color Dark Yellow Yellow Marquez Dark Yellow Urine Odor Strong Normal Head Head exam: Present atraumatic and normal inspection Eye Eye exam: Present normal appearance ENT ENT exam: Present mucous membranes moist, normal exam and normal external ear exam Additional comments: Nasal cannula Neck Neck exam: Present normal inspection Respiratory Respiratory exam: Present normal respiratory exam Cardiovascular Cardiovascular exam: Present normal rate and rhythm GI/Abdominal GI/Abdominal exam: Present normal bowel sounds Back Exam Back exam: Present normal inspection Neurological Exam Neurological exam: Present alert and oriented X3 Skin Skin exam: Present intact and warm OBJ DATA Labs CBC & Chem 7: 12/24/21 05:13 12/24/21 05:13 Labs: Abnormal Lab Results 12/24/21 12/24/21 12/23/21 05:13 05:13 19:46 WBC RBC 3.21 L Hgb 10.9 L Hct 31.2 L RDW 18.6 H Plt Count 130 L Immature Gran % (Auto) 2.7 H Neut % (Auto) Lymph % (Auto) 9.6 L Campbell % (Auto) 36.5 H Lymph # (Auto) 0.65 L Campbell # (Auto) 2.48 H Immature Gran # 0.18 H Absolute Neutrophils Sodium 117 L* 119 L* Chloride 85 L Carbon Dioxide BUN 4 L Creatinine 0.3 L Calcium 7.9 L Phosphorus Total Bilirubin Total Protein 5.8 L Albumin 2.9 L 12/23/21 12/23/21 12/23/21 16:13 11:00 11:00 WBC RBC 3.24 L Hgb 10.8 L Hct 30.4 L RDW 18.2 H Plt Count 107 L Immature Gran % (Auto) 1.7 H Neut % (Auto) Lymph % (Auto) 12.7 L Campbell % (Auto) 22.7 H Lymph # (Auto) 0.81 L Campbell # (Auto) 1.45 H Immature Gran # 0.11 H Absolute Neutrophils Sodium 120 L 120 L Chloride 85 L Carbon Dioxide BUN 5 L Creatinine 0.4 L Calcium 7.9 L Phosphorus 1.6 L Total Bilirubin Total Protein Albumin 12/23/21 12/23/21 12/22/21 06:23 01:07 20:53 WBC RBC Hgb Hct RDW Plt Count Immature Gran % (Auto) Neut % (Auto) Lymph % (Auto) Campbell % (Auto) Lymph # (Auto) Campbell # (Auto) Immature Gran # Absolute Neutrophils Sodium 119 L* 121 L Chloride Carbon Dioxide BUN Creatinine Calcium Phosphorus 2.3 L Total Bilirubin Total Protein Albumin 12/22/21 12/22/21 12/22/21 17:45 13:14 11:00 WBC RBC Hgb Hct RDW Plt Count Immature Gran % (Auto) Neut % (Auto) Lymph % (Auto) Campbell % (Auto) Lymph # (Auto) Campbell # (Auto) Immature Gran # Absolute Neutrophils Sodium 119 L* 117 L* 115 L* Chloride Carbon Dioxide BUN Creatinine Calcium Phosphorus Total Bilirubin Total Protein Albumin 12/22/21 12/22/21 12/22/21 05:20 05:20 02:09 WBC 14.3 H RBC 3.44 L Hgb Hct 33.0 L RDW 18.2 H Plt Count 78 L Immature Gran % (Auto) 2.0 H Neut % (Auto) 81.1 H Lymph % (Auto) 6.1 L Campbell % (Auto) Lymph # (Auto) 0.88 L Campbell # (Auto) 1.50 H Immature Gran # 0.28 H Absolute Neutrophils 11.63 H Sodium 115 L* 113 L* Chloride 82 L Carbon Dioxide 21 L BUN 5 L Creatinine 0.3 L Calcium 7.5 L Phosphorus 2.1 L Total Bilirubin 1.5 H Total Protein 5.6 L Albumin 3.0 L 12/21/21 12/21/21 12/21/21 22:10 19:39 18:13 WBC RBC Hgb Hct RDW Plt Count Immature Gran % (Auto) Neut % (Auto) Lymph % (Auto) Campbell % (Auto) Lymph # (Auto) Campbell # (Auto) Immature Gran # Absolute Neutrophils Sodium 111 L* 113 L* 125 L Chloride Carbon Dioxide BUN Creatinine Calcium Phosphorus Total Bilirubin Total Protein Albumin 12/21/21 12/21/21 14:11 09:55 WBC RBC Hgb Hct RDW Plt Count Immature Gran % (Auto) Neut % (Auto) Lymph % (Auto) Campbell % (Auto) Lymph # (Auto) Campbell # (Auto) Immature Gran # Absolute Neutrophils Sodium 108 L* 110 L* Chloride Carbon Dioxide BUN Creatinine Calcium Phosphorus Total Bilirubin Total Protein Albumin Meds: Medications Acetaminophen (Acetaminophen 325 Mg Tablet) 650 mg PO Q6HP PRN; Protocol PRN Reason: Per Pain Protocol/Fever > 101 Last Admin: 12/24/21 05:30 Dose: 650 mg Albuterol/Ipratropium (Ipratropium/Albuterol 3 Ml Ampul.Neb) 3 ml NEB Q4HP PRN PRN Reason: Shortness Of Breath Benzonatate (Benzonatate 100 Mg Capsule) 200 mg PO TIDP PRN PRN Reason: Cough Last Admin: 12/20/21 09:02 Dose: 200 mg Diltiazem HCl (Diltiazem 240 Mg Cap.Xl.24h) 240 mg PO [facility] Last Admin: 12/23/21 21:05 Dose: 240 mg Docusate Sodium (Docusate Sodium 100 Mg Capsule) 100 mg PO BID [facility] Last Admin: 12/23/21 21:05 Dose: 100 mg Enoxaparin Sodium (Enoxaparin 40 Mg/0.4 Ml Syringe) 40 mg SQ DAILY [facility] Last Admin: 12/23/21 08:05 Dose: 40 mg Heparin Sodium (Porcine) (Heparin Flush 10 Units/Ml 5 Ml Syringe) 2 ml IV Q12 [facility] Last Admin: 12/24/21 07:04 Dose: Not Given Magnesium Sulfate (Magnesium Sulfate) 2 gm in 50 mls @ 50 mls/hr IV UD PRN PRN Reason: Magnesium </= 1.6 Sodium Chloride (Sodium Chloride 3%) 500 mls @ 15 mls/hr IV ONCE ONE Stop: 12/25/21 16:06 Last Admin: 12/24/21 07:45 Dose: 15 mls/hr Latanoprost (Latanoprost Ophth Drops 2.5ml Bottle) 1 gtt OU HS [facility] Last Admin: 12/23/21 21:05 Dose: 1 gtt Levothyroxine Sodium (Levothyroxine 50 Mcg Tablet) 50 mcg PO ACB [facility] Last Admin: 12/24/21 07:45 Dose: 50 mcg Ondansetron HCl (Ondansetron 4 Mg/2 Ml Vial) 4 mg IV Q4HP PRN PRN Reason: Nausea And Vomiting Polyethylene Glycol (Polyethylene Glycol 3350 17 Gm Packet) 17 gm PO DAILYP PRN PRN Reason: Constipation Senna (Sennosides 1 Tablet) 2 tab PO DAILYP PRN PRN Reason: Constipation Sodium Chloride (0.9 % Sodium Chloride 10 Ml Syringe) 10 ml IV Q8 [facility] Last Admin: 12/24/21 05:28 Dose: 10 ml Sodium Chloride (0.9 % Sodium Chloride 10 Ml Syringe) 10 ml IV Q12 [facility] Last Admin: 12/23/21 20:34 Dose: 10 ml Sodium Phosphate (Phosphorus 250 Mg Tablet) 500 mg PO QID [facility] Last Admin: 12/23/21 21:05 Dose: 500 mg Timolol Maleate (Timolol 0.5% Ophth Drops Bottle 5ml) 1 gtt OU HS [facility] Last Admin: 12/23/21 20:33 Dose: Not Given A/P Assessment and plan (1) COVID-19 virus infection: Status: Acute (2) Acute hyponatremia: Status: Acute (3) Hypokalemia due to loss of potassium: Status: Acute (4) Hypothyroidism, acquired: Status: Chronic (5) Hypertension, essential: Status: Chronic (6) Dysphagia: Status: Acute Narrative A/P Narrative: Assessment and Plans: 1. Acute hyponatremia: Consulted [facility] specialist Dr. Escamilla, recs. appreciated As per [facility] recs: 1200cc/day fluid restriction 3% saline infusing at 15cc/hr Sodium q4hr Nrwzjn-Tloq-U 500mg PO QID Goal serum sodium level: 122-125 2. CoVID pneumonia: Isolation: airborne and contact Supplemental oxygen therapy as needed, currently on room air Finish Paxlovid therapy on 12/21 Chest X ray Blood cultures 12/24 3. Hypokalemia: Tjonbg-Yyma-V 500mg PO QID CMP daily to trend serum potassium level Also check serum Mg level daily and replace if needed 4. Essential hypertension: Normotensive Diltiazem CD Losartan d/c HCTZ from home regimen given hyponatremia 5. Hypothyroidism: Oral thyroid replacement 6. Dysphagia: Speech therapy evaluation and treatment Dysphagia diet, currently on Level 6 GI ppx: not indicated DVT ppx: Lovenox Code status: Full Prognosis: guarded Disposition: inpatient PCU; PT OT Time Spent With Patient Time: Total time spent is greater than 50% in coordination of care (as documented) at patient's floor/unit and/or counseling patient: Total time spent with greater than 50% in coordination of care (as documented) at patient's floor/unit and/or counseling patient:: 35 - 50 minutes QUALITY VTE Deep Vein Thrombosis/Pulmonary Embolism Present on Admission: No
[2021-12-24] MEDS: ENOXAPARIN 40 MG/0.4 ML SYRINGE SQ SCH (09:22)
[2021-12-24] MEDS: PHOSPHORUS 250 MG TABLET PO SCH ×4 (09:22→21:09)
[2021-12-24] MEDS: DOCUSATE SODIUM 100 MG CAPSULE PO SCH ×2 (09:22→21:09)
--- NOTE | 2021-12-24 10:24 | XRay Report ---
CLINICAL INFORMATION: Shortness of breath and cough COMPARISON: 12/19/2021 TECHNIQUE: Portable FINDINGS: Borderline cardiomegaly is unchanged. Mediastinum and pulmonary vessels are normal. New moderate right basilar infiltrate or atelectasis and effusion have developed since the previous exam. Tiny left pleural effusion also noted. IMPRESSION: Moderate right basilar infiltrate or atelectasis and effusion developing since comparison exam five days ago Interpreted and Authenticated by: Jeremie Moore 12/24/21
[2021-12-24] MEDS ORDERED: SODIUM CHLORIDE 1 GM TABLET PO SCH (21:00)
[2021-12-24] MEDS: TIMOLOL 0.5% OPHTH DROPS BOTTLE 5ML OU SCH (21:09)
[2021-12-24] MEDS: DILTIAZEM 240 MG CAP.XL.24H PO SCH (21:09)
[2021-12-24] MEDS: LATANOPROST OPHTH DROPS 2.5ML BOTTLE OU SCH (21:11)
[2021-12-25] MEDS: 0.9 % SODIUM CHLORIDE 10 ML SYRINGE IV SCH ×5 (05:10→21:30)
[2021-12-25 07:26] LABS: Basophils # (Auto) 0.03 K/mcL (0.00-0.30); Basophils % (Auto) 0.5 % (0.0-2.0); Eosinophils # (Auto) 0 K/mcL (0.00-0.70); Eosinophils % (Auto) 0 % (0.0-7.0); Hematocrit 30.1 % (34.1-44.9); Hemoglobin 10.4 g/dL (11.2-15.7); Lymphocytes # (Auto) 0.69 K/mcL (1.50-4.80); Lymphocytes % (Auto) 10.6 % (15.5-49.0); Mean Cell Volume 98.7 fL (80.0-100.0); Mean Corpuscular HGB Conc 34.6 g/dL (31.0-36.0); Mean Platelet Volume 10.5 fL (8.8-12.5); Monocytes % (Auto) 39.9 % (1.0-12.0); Neutrophils % (Auto) 46.5 % (38.0-78.0); Platelet Count 160 K/mcL (140-440); RBC 3.05 M/mcL (3.59-5.38); Red Cell Distribution Width 18.9 % (11.5-14.5); WBC 6.5 K/mcL (4.5-11.0)
[2021-12-25 07:27] LABS: Phosphorous 2.7 mg/dL (2.5-4.5)
[2021-12-25 07:39] LABS: ALT/SGPT 14 U/L (<40); AST/SGOT 19 U/L (<32); Albumin 2.8 gm/dL (3.2-5.2); Alkaline Phosphatase 45 U/L (39-117); Bilirubin,Total 0.6 mg/dL (0.1-1.0); Blood Urea Nitrogen 6 mg/dL (8-23); Calcium 7.7 mg/dL (8.6-10.4); Carbon Dioxide 23 mmol/L (22-30); Chloride 89 mmol/L (96-108); Globulin 2.8 gm/dL (2.2-3.7); Glomerular Filtration Rate 109; Glucose 97 mg/dL (70-105)
[2021-12-25] MEDS ORDERED: POTASSIUM CHLORIDE 40 MEQ in DEXTROSE 5% IN WATER 500 ML IV ONE (07:51)
[2021-12-25] MEDS: LEVOTHYROXINE 50 MCG TABLET PO SCH (07:52)
--- NOTE | 2021-12-25 07:59 | Nephrology Progress Note ---
SUBJECTIVE Subjective Patient information: Note initiated : 12/25/21 at 7:57 am Patient: Amna Wei 81 y/o F admitted on 12/19/21 for weakness/COVID+. Chief Complaint: Weakness Pertinent ROS: Weakness Fever Dyspnea Constitutional Vitals: Vital Signs Temp Pulse Resp BP Pulse Ox O2 Del Method O2 Flow Rate 99.2 F H 68 15 119/57 90 2 12/25/21 02:01 12/25/21 06:01 12/25/21 06:01 12/25/21 06:01 12/25/21 06:01 12/25/21 06:01 12/25/21 06:01 Period Temp Pulse Resp BP Sys/Kern Pulse Ox O2 Del Method O2 Flow Rate Last 24 Hr 98.5 F-101.4 F 64-86 12-23 95-142/47-98 90-96 Nasal Cannula- Nasal Cannula 1-2 Intake and Output 12/24/21 12/25/21 12/25/21 21:59 05:59 13:59 Intake Total 475 125 Output Total 300 350 Balance 175 -225 Weight 169 lb 4.8 oz Intake & Output: Intake & Output 12/24/21 12/25/21 12/25/21 21:59 05:59 13:59 Intake Total 475 125 Output Total 300 350 Balance 175 -225 Weight 169 lb 4.8 oz Intake: IV 0 Sodium Chloride 3% 500 ml @ 15 0 mls/hr IV ONCE ONE Rx#: [id number] Oral 475 125 Output: Urine Catheter Amount 300 350 Other: Urine Appearance Clear Clear Marquez Clear Urine Color Dark Yellow Dark Yellow Marquez Light Arely Urine Odor Normal Normal # Bowel Movements 0 General appearance: cooperative and no acute distress Head Head exam: Present normal inspection Eye Eye exam: Present normal appearance ENT ENT exam: Present mucous membranes moist Respiratory Respiratory exam: Absent respiratory distress Cardiovascular Cardiovascular exam: Present normal rate and rhythm GI/Abdominal GI/Abdominal exam: Present soft; Absent tenderness Extremities Exam Extremities exam: Absent joint swelling or pedal edema Neurological Exam Neurological exam: Present alert and oriented X3 Psychiatric Psychiatric exam: Present normal affect and normal mood Skin Skin exam: Present warm; Absent rash A/P Assessment and plan (1) Hyponatremia: Assessment and plan: Amna Wei is a 81-year-old female brought to ED by EMS for worsening weakness over the last 24 hours. She was diagnosed with COVID-19 4 days ago. Since that time she has been on Paxlovid that was prescribed by her PCP. In ED, her serum sodium was 105. She was given 2 L NS and admitted to ICU. Her repeat POC serum sodium was 109 after 5 hours. Nephrology consultation was requested for hyponatremia. 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 WORKUP Urinalysis on 12/19/21: Straw, Clear, pH 8.0, SG 1.005, protein 100, blood 0.03, leukocyte esterase negative, urine WBC. CXR on 12/19/21: Normal. CT Head on 12/19/21: Normal age-related degenerative changes in the brain. 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 Severe right maxillary and moderate bilateral frontal sinusitis. Urine Sodium on 12/19/21: 76 PROGRESS Serum sodium range: 12/19: 105-109 12/20: 105-111 12/21: 108-113; 125 was a sampling error (sample obtained proximal to hypertonic saline infusion). 12/22: 113-121 12/23: 119-120 12/24: 117-127 12/25: 125-126 Urine output: 800 ml reported in the past 24 hours. Serum potassium: 2.6 Serum phosphorus 2.7 RECOMMENDATIONS AND PLAN Continue 3% Sodium Chloride infusion. Potassium Chloride 40 mEq (in NS) IV x 1. May need to hold 3% Sodium chloride during infusion. Potassium Chloride 20 mEq PO TID, first dose now. Renal panel, Mg at 14:00. [id number]-[id number]-[id number] 500 mg PO QID discontinued. Continue 1200 ml/day fluid restriction. Target serum sodium today: 126-130. Status: Chronic Time Spent With Patient Time: Total time spent is greater than 50% in coordination of care (as documented) at patient's floor/unit and/or counseling patient:
[2021-12-25] MEDS ORDERED: POTASSIUM CHLORIDE 40 MEQ in 0.9 % SODIUM CHLORIDE 500 ML IV ONE (08:15)
[2021-12-25] MEDS: DOCUSATE SODIUM 100 MG CAPSULE PO SCH ×2 (08:32→21:25)
[2021-12-25] MEDS: ENOXAPARIN 40 MG/0.4 ML SYRINGE SQ SCH (08:32)
[2021-12-25] MEDS: POTASSIUM CHLORIDE 20 MEQ TABLET PO SCH ×3 (08:32→16:31)
--- NOTE | 2021-12-25 11:26 | Internal Med Progress Note ---
SUBJECTIVE Subjective Patient information: Note initiated : 12/25/21 at 11:20 am Service Date, if different from initiated Date: [] Patient: Amna Wei a 81 y/o F admitted on 12/19/21 for weakness/COVID+. Chief Complaint: [] Interval history: Ms. Wei is a 81 year old F Presents ED with increasing weakness poor appetite. Patient not eating and d rinking very well. Per family she also has some very mild confusion more so is lethargic and drowsy.. Extremely weak she could not get out of bed. Patient diagnosed with COVID several days ago and was prescribed Paxilovid. Chest x-ray in the ED unremarkable. CT showed age-related degenerative changes in the brain. In the ED she was found found to have a potassium of 2.6 and sodium 105 with a hypochloridemia as well. Leukopenia mild thrombocytopenia. Lactic acid unremarkable. Potential culprit medications for hyponatremia could be the hydrochlorothiazide she is on She denies any nausea vomiting or diarrhea. No chest pain. She has a very mild nonproductive cough but denies shortness of breath. She appeared to be dry on a presentation was given IV fluid boluses in the ED. 12/20: Serum sodium initially improved to 109 yesterday evening, but this morning went back down to 105. Serum potassium improved to 3.7. On room air. Patient is c/o general weakness. Denies shortness of breath. c/o cough, denies wheezing. Denies fever, chills, or sweating. As per combination presser recs: 1200cc/day fluid restriction NaCl 2gm PO x1 Sodium phosphate 250mg PO QID Serum sodium q2hr Goal of correction: <8mEq/24 hours Goal serum sodium level >130 12/21: Serum sodium 110, potassium 2.9 this morning. Nursing has noticed swallowing difficulties. Patient denies any chest pain or palpitations. She denies any muscle cramps or muscle weakness. She denies any confusions or lethargy's. She is still complain of general weakness. 1200cc/day fluid restriction Sodium phosphate 500mg PO QID Sodium bicarbonate 650mg PO TID 3% sodium chloride 500ml @15cc/hr K rider 20mEq IV once Potassium chloride 40mEq PO BID Serum sodium q4hr Last day of Paxlovid therapy. Physical therapy Occupational Therapy and speech therapy evaluation and treatments. 12/22: Patient is on 2 L/min of oxygen. A large amount of phlegm was being sucked out earlier by RT. Sodium level 115, potassium level 3.5. Patient is c/o general weakness. Denies shortness of breath. c/o cough, denies wheezing. Denies fever, chills, or sweating. 1200cc/day fluid restriction Potassium phosphate 40mEq in sodium chloride infusing at 63ml/hr Serum sodium q4hr Physical therapy, occupational therapy, and speech therapy evaluations and treatments 12/23: Patient is currently on room air. She has been evaluated by speech therapist and currently on dysphagia diet. Last sodium level from earlier was 119, potassium level pending. Patient states her strength has improved. Denies chest pain or palpitation. Denies shortness of breath. Denies fever, chills, or sweating. 1200cc/day fluid restriction 3% saline infusing at 15cc/hr KCL 40mEq PO BID Sodium q4hr Continue to work with Dr. Escamilla for electrolyte management, recs. appreciated Physical therapy, occupational therapy evaluations and treatments 12/24: Serum sodium 117 this morning, potassium 3.4. She is on 2L/min oxygen. Fever with Tmax 38.4 overnight. Patient states her strength has improved. Denies chest pain or palpitation. Denies shortness of breath. Denies fever, chills, or sweating. Good appetite. 1200cc/day fluid restriction 3% saline infusing at 15cc/hr Sodium q4hr Lnxieq-Akpz-N 500mg PO QID Goal serum sodium level: 122-125 Continue to touch base with PT OT regarding placement. Chest X ray Blood cultures 12/25: Low grade fever Tmax 37.3 overnight. On 2L/min oxygen. Sodium/potassium/magnesium 125/2.6/1.6, respectively. Blood cultures no growth to date. Patient states her strength has improved. Denies chest pain or palpitation. Denies shortness of breath. Denies fever, chills, or sweating. Good appetite. 1200cc/day fluid restriction 3% saline infusing at 15cc/hr KCl 40mEq IV once KCl 20mEq PO TID d/c Ucfmkf-Amey-O 500mg PO QID Repeat chemistry panel and Mg this PM Goal of sodium: 126-130 Constitutional Vitals: Vital Signs Temp Pulse Resp BP Pulse Ox O2 Del Method O2 Flow Rate 37.2 C 90 18 129/60 93 2 12/25/21 08:01 12/25/21 10:15 12/25/21 10:15 12/25/21 10:15 12/25/21 10:15 12/25/21 08:00 12/25/21 08:00 Period Temp Pulse Resp BP Sys/Kern Pulse Ox O2 Del Method O2 Flow Rate Last 24 Hr 36.9 C-38.6 C 64-90 12-23 95-142/47-98 90-96 Nasal Cannula- Nasal Cannula 1-2 Intake and Output 12/24/21 12/25/21 12/25/21 21:59 05:59 13:59 Intake Total 475 125 214 Output Total 300 350 Balance 175 -225 214 Weight 76.793 kg Intake & Output: Intake & Output 12/24/21 12/25/21 12/25/21 21:59 05:59 13:59 Intake Total 475 125 214 Output Total 300 350 Balance 175 -225 214 Weight 76.793 kg Intake: IV 0 214 Sodium Chloride 3% 500 ml @ 15 0 214 mls/hr IV ONCE ONE Rx#: [id number] Oral 475 125 Output: Urine Catheter Amount 300 350 Other: Meal Breakfast Percent of Meal Consumed 75% Feeding Ability Independent Urine Appearance Clear Clear Marquez Clear Urine Color Dark Yellow Dark Yellow Marquez Light Arely Urine Odor Normal Normal # Bowel Movements 0 Head Head exam: Present atraumatic and normal inspection Eye Eye exam: Present normal appearance ENT ENT exam: Present mucous membranes moist, normal exam and normal external ear exam Additional comments: Nasal cannula in place Neck Neck exam: Present normal inspection Respiratory Respiratory exam: Present normal respiratory exam Cardiovascular Cardiovascular exam: Present normal rate and rhythm GI/Abdominal GI/Abdominal exam: Present normal bowel sounds Back Exam Back exam: Present normal inspection Neurological Exam Neurological exam: Present alert and oriented X3 Skin Skin exam: Present intact and warm OBJ DATA Labs CBC & Chem 7: 12/25/21 05:08 12/25/21 05:08 Labs: Abnormal Lab Results 12/25/21 12/25/21 12/25/21 05:08 05:08 01:00 RBC 3.05 L Hgb 10.4 L Hct 30.1 L MCH 34.1 H RDW 18.9 H Plt Count Immature Gran % (Auto) 2.5 H Lymph % (Auto) 10.6 L Grainger % (Auto) 39.9 H Lymph # (Auto) 0.69 L Grainger # (Auto) 2.60 H Immature Gran # 0.16 H Sodium 125 L 126 L Potassium 2.6 L* Chloride 89 L BUN 6 L Creatinine 0.3 L Calcium 7.7 L Phosphorus Total Protein 5.6 L Albumin 2.8 L 12/24/21 12/24/21 12/24/21 23:00 20:57 17:09 RBC Hgb Hct MCH RDW Plt Count Immature Gran % (Auto) Lymph % (Auto) Grainger % (Auto) Lymph # (Auto) Grainger # (Auto) Immature Gran # Sodium 125 L 126 L 121 L Potassium Chloride BUN Creatinine Calcium Phosphorus Total Protein Albumin 12/24/21 12/24/21 12/24/21 13:02 09:12 05:13 RBC Hgb Hct MCH RDW Plt Count Immature Gran % (Auto) Lymph % (Auto) Grainger % (Auto) Lymph # (Auto) Grainger # (Auto) Immature Gran # Sodium 127 L 121 L 117 L* Potassium Chloride 85 L BUN 4 L Creatinine 0.3 L Calcium 7.9 L Phosphorus Total Protein 5.8 L Albumin 2.9 L 12/24/21 12/23/21 12/23/21 05:13 19:46 16:13 RBC 3.21 L Hgb 10.9 L Hct 31.2 L MCH RDW 18.6 H Plt Count 130 L Immature Gran % (Auto) 2.7 H Lymph % (Auto) 9.6 L Grainger % (Auto) 36.5 H Lymph # (Auto) 0.65 L Grainger # (Auto) 2.48 H Immature Gran # 0.18 H Sodium 119 L* 120 L Potassium Chloride BUN Creatinine Calcium Phosphorus Total Protein Albumin 12/23/21 12/23/21 12/23/21 11:00 11:00 06:23 RBC 3.24 L Hgb 10.8 L Hct 30.4 L MCH RDW 18.2 H Plt Count 107 L Immature Gran % (Auto) 1.7 H Lymph % (Auto) 12.7 L Grainger % (Auto) 22.7 H Lymph # (Auto) 0.81 L Grainger # (Auto) 1.45 H Immature Gran # 0.11 H Sodium 120 L Potassium Chloride 85 L BUN 5 L Creatinine 0.4 L Calcium 7.9 L Phosphorus 1.6 L 2.3 L Total Protein Albumin 12/23/21 12/22/21 12/22/21 01:07 20:53 17:45 RBC Hgb Hct MCH RDW Plt Count Immature Gran % (Auto) Lymph % (Auto) Grainger % (Auto) Lymph # (Auto) Grainger # (Auto) Immature Gran # Sodium 119 L* 121 L 119 L* Potassium Chloride BUN Creatinine Calcium Phosphorus Total Protein Albumin 12/22/21 12/22/21 13:14 11:00 RBC Hgb Hct MCH RDW Plt Count Immature Gran % (Auto) Lymph % (Auto) Grainger % (Auto) Lymph # (Auto) Grainger # (Auto) Immature Gran # Sodium 117 L* 115 L* Potassium Chloride BUN Creatinine Calcium Phosphorus Total Protein Albumin Meds: Medications Acetaminophen (Acetaminophen 325 Mg Tablet) 650 mg PO Q6HP PRN; Protocol PRN Reason: Per Pain Protocol/Fever > 101 Last Admin: 12/24/21 17:05 Dose: 650 mg Albuterol/Ipratropium (Ipratropium/Albuterol 3 Ml Ampul.Neb) 3 ml NEB Q4HP PRN PRN Reason: Shortness Of Breath Benzonatate (Benzonatate 100 Mg Capsule) 200 mg PO TIDP PRN PRN Reason: Cough Last Admin: 12/20/21 09:02 Dose: 200 mg Diltiazem HCl (Diltiazem 240 Mg Cap.Xl.24h) 240 mg PO HS [facility] Last Admin: 12/24/21 21:09 Dose: 240 mg Docusate Sodium (Docusate Sodium 100 Mg Capsule) 100 mg PO BID [facility] Last Admin: 12/25/21 08:32 Dose: 100 mg Enoxaparin Sodium (Enoxaparin 40 Mg/0.4 Ml Syringe) 40 mg SQ DAILY [facility] Last Admin: 12/25/21 08:32 Dose: 40 mg Heparin Sodium (Porcine) (Heparin Flush 10 Units/Ml 5 Ml Syringe) 2 ml IV Q12 [facility] Last Admin: 12/25/21 10:25 Dose: Not Given Magnesium Sulfate (Magnesium Sulfate) 2 gm in 50 mls @ 50 mls/hr IV UD PRN PRN Reason: Magnesium </= 1.6 Sodium Chloride (Sodium Chloride 3%) 500 mls @ 15 mls/hr IV ONCE ONE Stop: 12/26/21 03:32 Last Infusion: 12/25/21 08:50 Dose: 0 mls/hr Potassium Chloride 40 meq/ (Sodium Chloride) 520 mls @ 130 mls/hr IV ONCE ONE Stop: 12/25/21 12:14 Last Admin: 12/25/21 08:38 Dose: 130 mls/hr Latanoprost (Latanoprost Ophth Drops 2.5ml Bottle) 1 gtt OU HS [facility] Last Admin: 12/24/21 21:11 Dose: 1 gtt Levothyroxine Sodium (Levothyroxine 50 Mcg Tablet) 50 mcg PO ACB [facility] Last Admin: 12/25/21 07:52 Dose: 50 mcg Ondansetron HCl (Ondansetron 4 Mg/2 Ml Vial) 4 mg IV Q4HP PRN PRN Reason: Nausea And Vomiting Polyethylene Glycol (Polyethylene Glycol 3350 17 Gm Packet) 17 gm PO DAILYP PRN PRN Reason: Constipation Last Admin: 12/25/21 08:32 Dose: 17 gm Potassium Chloride (Potassium Chloride 20 Meq Tablet) 20 meq PO TIDCC [facility] Last Admin: 12/25/21 08:32 Dose: 20 meq Senna (Sennosides 1 Tablet) 2 tab PO DAILYP PRN PRN Reason: Constipation Sodium Chloride (0.9 % Sodium Chloride 10 Ml Syringe) 10 ml IV Q8 [facility] Last Admin: 12/25/21 05:10 Dose: 10 ml Sodium Chloride (0.9 % Sodium Chloride 10 Ml Syringe) 10 ml IV Q12 [facility] Last Admin: 12/25/21 10:25 Dose: Not Given Timolol Maleate (Timolol 0.5% Ophth Drops Bottle 5ml) 1 gtt OU HS [facility] Last Admin: 12/24/21 21:09 Dose: Not Given A/P Assessment and plan (1) COVID-19 virus infection: Status: Acute (2) Acute hyponatremia: Status: Acute (3) Hypokalemia due to loss of potassium: Status: Acute (4) Hypothyroidism, acquired: Status: Chronic (5) Hypertension, essential: Status: Chronic (6) Dysphagia: Status: Acute Narrative A/P Narrative: Assessment and Plans: 1. Acute hyponatremia: Consulted combination presser Dr. Escamilla, recs. appreciated As per combination presser recs: 1200cc/day fluid restriction 3% saline infusing at 15cc/hr d/c Aewcmn-Pwjg-O 500mg PO QID Repeat chemistry panel and Mg this PM Goal of sodium: 126-130 2. CoVID pneumonia: Isolation: airborne and contact Supplemental oxygen therapy as needed, currently on room air Finish Paxlovid therapy on 12/21 Chest X ray Blood cultures 12/24, no growth to date 3. Hypokalemia: KCl 40mEq IV once KCl 20mEq PO TID d/c Yfwclo-Losm-F 500mg PO QID Repeat chemistry panel and Mg this PM Goal of sodium: 126-130 4. Essential hypertension: Normotensive Diltiazem CD Losartan d/c HCTZ from home regimen given hyponatremia 5. Hypothyroidism: Oral thyroid replacement 6. Dysphagia: Speech therapy evaluation and treatment Dysphagia diet, currently on Level 6 GI ppx: not indicated DVT ppx: Lovenox Code status: Full Prognosis: guarded Disposition: inpatient PCU; SNF Time Spent With Patient Time: Total time spent is greater than 50% in coordination of care (as documented) at patient's floor/unit and/or counseling patient: Total time spent with greater than 50% in coordination of care (as documented) at patient's floor/unit and/or counseling patient:: 35 - 50 minutes QUALITY VTE Deep Vein Thrombosis/Pulmonary Embolism Present on Admission: No
[2021-12-25 15:54] LABS: Phosphorous 2.1 mg/dL (2.5-4.5)
[2021-12-25] MEDS: NEUTRA PHOS 1 PACKET PO SCH ×2 (16:32→20:15)
[2021-12-25] MEDS: SODIUM CHLORIDE 1 GM TABLET PO SCH ×2 (16:32→21:25)
[2021-12-25] MEDS: MAGNESIUM OXIDE 400 MG TABLET PO SCH (20:15)
[2021-12-25] MEDS: DILTIAZEM 240 MG CAP.XL.24H PO SCH (21:25)
[2021-12-25] MEDS: TIMOLOL 0.5% OPHTH DROPS BOTTLE 5ML OU SCH (21:26)
[2021-12-25] MEDS: LATANOPROST OPHTH DROPS 2.5ML BOTTLE OU SCH (21:27)
[2021-12-26] MEDS: ACETAMINOPHEN 325 MG TABLET PO PRN ×2 (02:53→21:00)
[2021-12-26] MEDS: 0.9 % SODIUM CHLORIDE 10 ML SYRINGE IV SCH ×5 (06:06→21:04)
[2021-12-26] MEDS: LEVOTHYROXINE 50 MCG TABLET PO SCH (07:06)
[2021-12-26] MEDS: POTASSIUM CHLORIDE 20 MEQ TABLET PO SCH (07:08)
--- NOTE | 2021-12-26 07:25 | Nephrology Progress Note ---
SUBJECTIVE Subjective Patient information: Note initiated : 12/26/21 at 7:23 am Patient: Amna Wei 81 y/o F admitted on 12/19/21 for weakness/COVID+. Chief Complaint: Weakness Pertinent ROS: Weakness Dyspnea Fever Constitutional Vitals: Vital Signs Temp Pulse Resp BP Pulse Ox O2 Del Method O2 Flow Rate 99.6 F H 88 16 133/66 95 2 12/26/21 04:01 12/26/21 06:01 12/26/21 06:01 12/26/21 06:01 12/26/21 06:01 12/26/21 06:01 12/26/21 06:01 Period Temp Pulse Resp BP Sys/Kern Pulse Ox O2 Del Method O2 Flow Rate Last 24 Hr 98.8 F-101.4 F 77-96 14-20 113-148/58-112 90-96 Nasal Cannula- Nasal Cannula 1-3 Intake and Output 12/25/21 12/26/21 12/26/21 21:59 05:59 13:59 Intake Total 917 120 Output Total 225 460 Balance 692 -460 120 Weight 172 lb 9.6 oz Intake & Output: Intake & Output 12/25/21 12/26/21 12/26/21 21:59 05:59 13:59 Intake Total 917 120 Output Total 225 460 Balance 692 -460 120 Weight 172 lb 9.6 oz Intake: Nourishment/Supplement quantity 560 (ml) IV 57 Sodium Chloride 3% 500 ml @ 15 57 mls/hr IV ONCE ONE Rx#: [id number] Oral 300 120 Output: Urine Catheter Amount 225 460 Other: Meal Dinner Applesauce Percent of Meal Consumed 25% 100% Feeding Ability Independent Nourishment/Supplement name Ensure Urine Appearance Clear Cloudy Marquez Clear Urine Color Dark Arely Bright Yellow Marquez Bright Yellow General appearance: cooperative and no acute distress Head Head exam: Present normal inspection Eye Eye exam: Present normal appearance ENT ENT exam: Present mucous membranes moist Respiratory Respiratory exam: Absent respiratory distress Cardiovascular Cardiovascular exam: Present normal rate and rhythm GI/Abdominal GI/Abdominal exam: Present soft; Absent tenderness Extremities Exam Extremities exam: Absent joint swelling or pedal edema Neurological Exam Neurological exam: Present alert and oriented X3 Psychiatric Psychiatric exam: Present normal affect and normal mood Skin Skin exam: Present warm; Absent rash A/P Assessment and plan (1) Hyponatremia: Assessment and plan: Amna Wei is a 81-year-old female brought to ED by EMS for worsening weakness over the last 24 hours. She was diagnosed with COVID-19 4 days ago. Since that time she has been on Paxlovid that was prescribed by her PCP. In ED, her serum sodium was 105. She was given 2 L NS and admitted to ICU. Her repeat POC serum sodium was 109 after 5 hours. Nephrology consultation was requested for hyponatremia. 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 Covid complicated with sepsis. WORKUP Urinalysis on 12/19/21: Straw, Clear, pH 8.0, SG 1.005, protein 100, blood 0.03, leukocyte esterase negative, urine WBC. CXR on 12/19/21: Normal. CT Head on 12/19/21: Normal age-related degenerative changes in the brain. 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 Severe right maxillary and moderate bilateral frontal sinusitis. Urine Sodium on 12/19/21: 76 PROGRESS Serum sodium range: 12/19: 105-109 12/20: 105-111 12/21: 108-113; 125 was a sampling error (sample obtained proximal to hypertonic saline infusion). 12/22: 113-121 12/23: 119-120 12/24: 117-127 12/25: 125-129 12/26: 129 Urine output: 685 ml reported in the past 24 hours. Serum potassium: 2.6 Serum phosphorus 2.7 RECOMMENDATIONS AND PLAN Potassium Chloride decreased from 20 to 10 mEq PO TID. Magnesium Oxide 400 mg PO increased from BID to TID. Continue Nlhpaa-Nyjf-P 2 packet PO QID. Sodium Chloride 2 g PO QID. Continue 1200 ml/day fluid restriction. Target serum sodium today: 130-135. Renal panel and Mg at 15:00. Status: Chronic Time Spent With Patient Time: Total time spent is greater than 50% in coordination of care (as documented) at patient's floor/unit and/or counseling patient:
[2021-12-26] MEDS ORDERED: VANCOMYCIN PER PHARMACY IV SCH (07:43)
--- NOTE | 2021-12-26 07:49 | Internal Med Progress Note ---
SUBJECTIVE Subjective Patient information: Note initiated : 12/26/21 at 7:43 am Service Date, if different from initiated Date: [] Patient: Amna Wei a 81 y/o F admitted on 12/19/21 for weakness/COVID+. Chief Complaint: [] Interval history: Ms. Wei is a 81 year old F Presents ED with increasing weakness poor appetite. Patient not eating and dr inking very well. Per family she also has some very mild confusion more so is lethargic and drowsy.. Extremely weak she could not get out of bed. Patient diagnosed with COVID several days ago and was prescribed Paxilovid. Chest x-ray in the ED unremarkable. CT showed age-related degenerative changes in the brain. In the ED she was found found to have a potassium of 2.6 and sodium 105 with a h ypochloridemia as well. Leukopenia mild thrombocytopenia. Lactic acid unremarkable. Potential culprit medications for hyponatremia could be the hydrochlorothiazide she is on She denies any nausea vomiting or diarrhea. No chest pain. She has a very mild nonproductive cough but denies shortness of breath. She appeared to be dry on a presentation was given IV fluid boluses in the ED. 12/20: Serum sodium initially improved to 109 yesterday evening, but this morning went back down to 105. Serum potassium improved to 3.7. On room air. Patient is c/o general weakness. Denies shortness of breath. c/o cough, denies wheezing. Denies fever, chills, or sweating. As per registered nurse first assistant recs: 1200cc/day fluid restriction NaCl 2gm PO x1 Sodium phosphate 250mg PO QID Serum sodium q2hr Goal of correction: <8mEq/24 hours Goal serum sodium level >130 12/21: Serum sodium 110, potassium 2.9 this morning. Nursing has noticed swallowing difficulties. Patient denies any chest pain or palpitations. She denies any muscle cramps or muscle weakness. She denies any confusions or lethargy's. She is still complain of general weakness. 1200cc/day fluid restriction Sodium phosphate 500mg PO QID Sodium bicarbonate 650mg PO TID 3% sodium chloride 500ml @15cc/hr K rider 20mEq IV once Potassium chloride 40mEq PO BID Serum sodium q4hr Last day of Paxlovid therapy. Physical therapy Occupational Therapy and speech therapy evaluation and treatments. 12/22: Patient is on 2 L/min of oxygen. A large amount of phlegm was being sucked out earlier by RT. Sodium level 115, potassium level 3.5. Patient is c/o general weakness. Denies shortness of breath. c/o cough, denies wheezing. Denies fever, chills, or sweating. 1200cc/day fluid restriction Potassium phosphate 40mEq in sodium chloride infusing at 63ml/hr Serum sodium q4hr Physical therapy, occupational therapy, and speech therapy evaluations and treatments 12/23: Patient is currently on room air. She has been evaluated by speech therapist and currently on dysphagia diet. Last sodium level from earlier was 119, potassium level pending. Patient states her strength has improved. Denies chest pain or palpitation. Denies shortness of breath. Denies fever, chills, or sweating. 1200cc/day fluid restriction 3% saline infusing at 15cc/hr KCL 40mEq PO BID Sodium q4hr Continue to work with Dr. Escamilla for electrolyte management, recs. appreciated Physical therapy, occupational therapy evaluations and treatments 12/24: Serum sodium 117 this morning, potassium 3.4. She is on 2L/min oxygen. Fever with Tmax 38.4 overnight. Patient states her strength has improved. Denies chest pain or palpitation. Denies shortness of breath. Denies fever, chills, or sweating. Good appetite. 1200cc/day fluid restriction 3% saline infusing at 15cc/hr Sodium q4hr Jjjvtl-[id number]-C 500mg PO QID Goal serum sodium level: 122-125 Continue to touch base with PT OT regarding placement. Chest X ray Blood cultures 12/25: Low grade fever Tmax 37.3 overnight. On 2L/min oxygen. Sodium/potassium/magnesium 125/2.6/1.6, respectively. Blood cultures no growth to date. Patient states her strength has improved. Denies chest pain or palpitation. Denies shortness of breath. Denies fever, chills, or sweating. Good appetite. 1200cc/day fluid restriction 3% saline infusing at 15cc/hr KCl 40mEq IV once KCl 20mEq PO TID d/c Cymbea-Hjwp-M 500mg PO QID Repeat chemistry panel and Mg this PM Goal of sodium: 126-130 12/26: Fever T-max 38.6 overnight. Currently on 2 L/min of oxygen. Morning labs pending today. Patient's denies any shortness of breath. She denies any cough or sputum productions or wheezings although nursing staff reported that she did have cough with sputum productions. She denies any subjective fever or chills or diaphoresis. She has good energy level. We will collect sputum culture and will start the patient's on broad-spectrum antibiotics coverage vancomycin and Zosyn to cover for any secondary bacterial pneumonia. Blood culture pending and no growth. 1200cc/day fluid restriction KCl 20mEq PO TID NaCl 2gm PO QID MgO 400mg PO BID Goal sodium 126-130 Constitutional Vitals: Vital Signs Temp Pulse Resp BP Pulse Ox O2 Del Method O2 Flow Rate 37.6 C H 88 16 133/66 95 2 12/26/21 04:01 12/26/21 06:01 12/26/21 06:01 12/26/21 06:01 12/26/21 06:01 12/26/21 06:01 12/26/21 06:01 Period Temp Pulse Resp BP Sys/Kern Pulse Ox O2 Del Method O2 Flow Rate Last 24 Hr 37.1 C-38.6 C 77-96 14-20 113-148/58-112 90-96 Nasal Cannula- Nasal Cannula 1-3 Intake and Output 12/25/21 12/26/21 12/26/21 21:59 05:59 13:59 Intake Total 917 120 Output Total 225 460 Balance 692 -460 120 Weight 78.29 kg Intake & Output: Intake & Output 12/25/21 12/26/21 12/26/21 21:59 05:59 13:59 Intake Total 917 120 Output Total 225 460 Balance 692 -460 120 Weight 78.29 kg Intake: Nourishment/Supplement quantity 560 (ml) IV 57 Sodium Chloride 3% 500 ml @ 15 57 mls/hr IV ONCE ONE Rx#: [id number] Oral 300 120 Output: Urine Catheter Amount 225 460 Other: Meal Dinner Applesauce Percent of Meal Consumed 25% 100% Feeding Ability Independent Nourishment/Supplement name Ensure Urine Appearance Clear Cloudy Marquez Clear Urine Color Dark Arely Bright Yellow Marquez Bright Yellow Head Head exam: Present atraumatic and normal inspection Eye Eye exam: Present normal appearance ENT ENT exam: Present mucous membranes moist, normal exam and normal external ear exam Additional comments: Nasal cannula in place Neck Neck exam: Present normal inspection Respiratory Respiratory exam: Present rhonchi Cardiovascular Cardiovascular exam: Present normal rate and rhythm GI/Abdominal GI/Abdominal exam: Present normal bowel sounds Back Exam Back exam: Present normal inspection Neurological Exam Neurological exam: Present alert and oriented X3 Skin Skin exam: Present intact and warm OBJ DATA Labs CBC & Chem 7: 12/25/21 05:08 12/25/21 14:09 Labs: Abnormal Lab Results 12/25/21 12/25/21 12/25/21 14:09 14:09 05:08 RBC Hgb Hct MCH RDW Plt Count Immature Gran % (Auto) Lymph % (Auto) [place] % (Auto) Lymph # (Auto) [place] # (Auto) Immature Gran # Sodium 129 L 125 L Potassium 3.2 L 2.6 L* Chloride 94 L 89 L BUN 6 L Creatinine 0.4 L 0.3 L Glucose 167 H Calcium 7.0 L 7.7 L Phosphorus 2.1 L Magnesium 1.4 L Total Protein 5.6 L Albumin 3.0 L 2.8 L 12/25/21 12/25/21 12/24/21 05:08 01:00 23:00 RBC 3.05 L Hgb 10.4 L Hct 30.1 L MCH 34.1 H RDW 18.9 H Plt Count Immature Gran % (Auto) 2.5 H Lymph % (Auto) 10.6 L [place] % (Auto) 39.9 H Lymph # (Auto) 0.69 L [place] # (Auto) 2.60 H Immature Gran # 0.16 H Sodium 126 L 125 L Potassium Chloride BUN Creatinine Glucose Calcium Phosphorus Magnesium Total Protein Albumin 12/24/21 12/24/21 12/24/21 20:57 17:09 13:02 RBC Hgb Hct MCH RDW Plt Count Immature Gran % (Auto) Lymph % (Auto) [place] % (Auto) Lymph # (Auto) [place] # (Auto) Immature Gran # Sodium 126 L 121 L 127 L Potassium Chloride BUN Creatinine Glucose Calcium Phosphorus Magnesium Total Protein Albumin 12/24/21 12/24/21 12/24/21 09:12 05:13 05:13 RBC 3.21 L Hgb 10.9 L Hct 31.2 L MCH RDW 18.6 H Plt Count 130 L Immature Gran % (Auto) 2.7 H Lymph % (Auto) 9.6 L [place] % (Auto) 36.5 H Lymph # (Auto) 0.65 L [place] # (Auto) 2.48 H Immature Gran # 0.18 H Sodium 121 L 117 L* Potassium Chloride 85 L BUN 4 L Creatinine 0.3 L Glucose Calcium 7.9 L Phosphorus Magnesium Total Protein 5.8 L Albumin 2.9 L 12/23/21 12/23/21 12/23/21 19:46 16:13 11:00 RBC Hgb Hct MCH RDW Plt Count Immature Gran % (Auto) Lymph % (Auto) [place] % (Auto) Lymph # (Auto) [place] # (Auto) Immature Gran # Sodium 119 L* 120 L 120 L Potassium Chloride 85 L BUN 5 L Creatinine 0.4 L Glucose Calcium 7.9 L Phosphorus 1.6 L Magnesium Total Protein Albumin 12/23/21 12/23/21 11:00 06:23 RBC 3.24 L Hgb 10.8 L Hct 30.4 L MCH RDW 18.2 H Plt Count 107 L Immature Gran % (Auto) 1.7 H Lymph % (Auto) 12.7 L [place] % (Auto) 22.7 H Lymph # (Auto) 0.81 L [place] # (Auto) 1.45 H Immature Gran # 0.11 H Sodium Potassium Chloride BUN Creatinine Glucose Calcium Phosphorus 2.3 L Magnesium Total Protein Albumin Meds: Medications Acetaminophen (Acetaminophen 325 Mg Tablet) 650 mg PO Q6HP PRN; Protocol PRN Reason: Per Pain Protocol/Fever > 101 Last Admin: 12/26/21 02:53 Dose: 650 mg Albuterol/Ipratropium (Ipratropium/Albuterol 3 Ml Ampul.Neb) 3 ml NEB Q4HP PRN PRN Reason: Shortness Of Breath Benzonatate (Benzonatate 100 Mg Capsule) 200 mg PO TIDP PRN PRN Reason: Cough Last Admin: 12/20/21 09:02 Dose: 200 mg Diltiazem HCl (Diltiazem 240 Mg Cap.Xl.24h) 240 mg PO HS BREEZY Last Admin: 12/25/21 21:25 Dose: 240 mg Docusate Sodium (Docusate Sodium 100 Mg Capsule) 100 mg PO BID BREEZY Last Admin: 12/25/21 21:25 Dose: 100 mg Enoxaparin Sodium (Enoxaparin 40 Mg/0.4 Ml Syringe) 40 mg SQ DAILY [facility] Last Admin: 12/25/21 08:32 Dose: 40 mg Heparin Sodium (Porcine) (Heparin Flush 10 Units/Ml 5 Ml Syringe) 2 ml IV Q12 [facility] Last Admin: 12/25/21 20:12 Dose: Not Given Piperacillin Sod/Tazobactam (Sod 3.375 gm/ Dextrose) 50 mls @ 100 mls/hr IV Q8H [facility]; Protocol Latanoprost (Latanoprost Ophth Drops 2.5ml Bottle) 1 gtt OU HS [facility] Last Admin: 12/25/21 21:27 Dose: 1 gtt Levothyroxine Sodium (Levothyroxine 50 Mcg Tablet) 50 mcg PO ACB [facility] Last Admin: 12/26/21 07:06 Dose: 50 mcg Magnesium Oxide (Magnesium Oxide 400 Mg Tablet) 400 mg PO BID [facility] Last Admin: 12/25/21 20:15 Dose: 400 mg Ondansetron HCl (Ondansetron 4 Mg/2 Ml Vial) 4 mg IV Q4HP PRN PRN Reason: Nausea And Vomiting Polyethylene Glycol (Polyethylene Glycol 3350 17 Gm Packet) 17 gm PO DAILYP PRN PRN Reason: Constipation Last Admin: 12/25/21 08:32 Dose: 17 gm Potassium Chloride (Potassium Chloride 20 Meq Tablet) 20 meq PO TIDCC [facility] Last Admin: 12/26/21 07:08 Dose: 20 meq Potassium/Phosphorus/Sodium (Neutra Phos 1 Packet) 2 packet PO QID [facility] Last Admin: 12/25/21 20:15 Dose: 2 packet Senna (Sennosides 1 Tablet) 2 tab PO DAILYP PRN PRN Reason: Constipation Sodium Chloride (0.9 % Sodium Chloride 10 Ml Syringe) 10 ml IV Q8 [facility] Last Admin: 12/26/21 06:06 Dose: 10 ml Sodium Chloride (0.9 % Sodium Chloride 10 Ml Syringe) 10 ml IV Q12 [facility] Last Admin: 12/25/21 21:26 Dose: Not Given Sodium Chloride (Sodium Chloride 1 Gm Tablet) 2 gm PO QID [facility] Last Admin: 12/25/21 21:25 Dose: 2 gm Timolol Maleate (Timolol 0.5% Ophth Drops Bottle 5ml) 1 gtt OU HS [facility] Last Admin: 12/25/21 21:26 Dose: 1 gtt Vancomycin HCl (Vancomycin Per Pharmacy) 1 order IV ONCE ONE; Protocol Stop: 12/26/21 07:44 A/P Assessment and plan (1) COVID-19 virus infection: Status: Acute (2) Acute hyponatremia: Status: Acute (3) Hypokalemia due to loss of potassium: Status: Acute (4) Hypothyroidism, acquired: Status: Chronic (5) Hypertension, essential: Status: Chronic (6) Dysphagia: Status: Acute Narrative A/P Narrative: Assessment and Plans: 1. Acute hyponatremia: Consulted registered nurse first assistant Dr. Escamilla, recs. appreciated As per registered nurse first assistant recs: 1200cc/day fluid restriction NaCl 2gm PO QID Goal sodium 126-130 2. CoVID pneumonia: Isolation: airborne and contact Supplemental oxygen therapy as needed, currently on room air Finish Paxlovid therapy on 12/21 We will collect sputum culture and will start the patient's on broad-spectrum antibiotics coverage vancomycin and Zosyn to cover for any secondary bacterial pneumonia. Blood culture pending and no growth. 3. Hypokalemia: KCl 20mEq PO TID [id number]-[id number]-I 2 packet PO QID 4. Essential hypertension: Normotensive Diltiazem CD Losartan d/c HCTZ from home regimen given hyponatremia 5. Hypothyroidism: Oral thyroid replacement 6. Dysphagia: Speech therapy evaluation and treatment Dysphagia diet, currently on Level 6 GI ppx: not indicated DVT ppx: Lovenox Code status: Full Prognosis: guarded Disposition: inpatient PCU; SNF Time Spent With Patient Time: Total time spent is greater than 50% in coordination of care (as documented) at patient's floor/unit and/or counseling patient: Total time spent with greater than 50% in coordination of care (as documented) at patient's floor/unit and/or counseling patient:: 35 - 50 minutes QUALITY VTE Deep Vein Thrombosis/Pulmonary Embolism Present on Admission: No
[2021-12-26] MEDS: PIPERACILLIN SODIUM/TAZOBACTAM 3.375 GM in DEXTROSE 5% IN WATER 50 ML IV SCH ×3 (08:37→21:02)
[2021-12-26] MEDS: VANCOMYCIN 1,500 MG in 0.9 % SODIUM CHLORIDE 500 ML IV SCH (08:37)
[2021-12-26 08:41] LABS: Basophils # (Auto) 0.03 K/mcL (0.00-0.30); Basophils % (Auto) 0.4 % (0.0-2.0); Eosinophils # (Auto) 0.02 K/mcL (0.00-0.70); Eosinophils % (Auto) 0.3 % (0.0-7.0); Hematocrit 26.9 % (34.1-44.9); Hemoglobin 9.7 g/dL (11.2-15.7); Lymphocytes # (Auto) 0.96 K/mcL (1.50-4.80); Lymphocytes % (Auto) 14.1 % (15.5-49.0); Mean Cell Volume 102.3 fL (80.0-100.0); Mean Corpuscular HGB Conc 36.1 g/dL (31.0-36.0); Mean Platelet Volume 9.3 fL (8.8-12.5); Monocytes # (Auto) 2.76 K/mcL (0.10-0.90); Monocytes % (Auto) 40.6 % (1.0-12.0); Neutrophils % (Auto) 39.4 % (38.0-78.0); Platelet Count 157 K/mcL (140-440); RBC 2.63 M/mcL (3.59-5.38); Red Cell Distribution Width 19.5 % (11.5-14.5); WBC 6.8 K/mcL (4.5-11.0)
[2021-12-26] MEDS: ENOXAPARIN 40 MG/0.4 ML SYRINGE SQ SCH (08:43)
[2021-12-26] MEDS: NEUTRA PHOS 1 PACKET PO SCH ×4 (08:43→21:03)
[2021-12-26] MEDS: DOCUSATE SODIUM 100 MG CAPSULE PO SCH ×2 (08:44→20:59)
[2021-12-26] MEDS: MAGNESIUM OXIDE 400 MG TABLET PO SCH ×3 (08:44→21:00)
[2021-12-26] MEDS: SODIUM CHLORIDE 1 GM TABLET PO SCH ×4 (08:44→20:59)
[2021-12-26 09:43] LABS: ALT/SGPT 15 U/L (<40); AST/SGOT 18 U/L (<32); Albumin 2.8 gm/dL (3.2-5.2); Alkaline Phosphatase 47 U/L (39-117); Bilirubin,Total 0.4 mg/dL (0.1-1.0); Blood Urea Nitrogen 10 mg/dL (8-23); Calcium 7.7 mg/dL (8.6-10.4); Carbon Dioxide 26 mmol/L (22-30); Chloride 95 mmol/L (96-108); Globulin 2.8 gm/dL (2.2-3.7); Glomerular Filtration Rate 109; Glucose 99 mg/dL (70-105); Phosphorous 2.4 mg/dL (2.5-4.5)
[2021-12-26 10:33] LABS: Appearance,Urine CLOUDY (Clear); Bacteria,Urine FEW /hpf (0); Bilirubin,Urine Negative (Negative); Color,Urine AMBER; Culture Indicated,Urine yes; Glucose,Urine (UA) Negative (Negative); Ketones,Urine Negative (Negative); Leukocyte Esterase,Urine 250 /uL (Negative); Mucus,Urine MANY /hpf; Nitrate,Urine POS (Negative); Protein,Urine 100 mg/dL (Negative); Specific Gravity,Urine 1.021 (1.000-1.035); Urine Blood Negative (Negative); Urine RBC 23 /hpf (0-3); Urine Squamous Epithelial Cell 0 /hpf (0-4); Urine WBC > 182 /hpf (0-4)
[2021-12-26] MEDS ORDERED: POTASSIUM CHLORIDE 20 MEQ TABLET PO SCH (12:00)
[2021-12-26] MEDS: BENZONATATE 100 MG CAPSULE PO PRN ×2 (15:01→20:59)
--- NOTE | 2021-12-26 15:09 | Internal Med Progress Note ---
SUBJECTIVE Subjective Patient information: Note initiated : 12/26/21 at 3:02 pm Service Date, if different from initiated Date: [] Patient: Amna Wei a 81 y/o F admitted on 12/19/21 for weakness/COVID+. Chief Complaint: [] Interval history: History of present illness: Ms. Wei is a 81 year old F Presents ED with increasing weakness poor appetite. Patient not eating and drinking very well. Per family she also has some very mild confusion more so is lethargic and drowsy.. Extremely weak she could not get out of bed. Patient diagnosed with COVID several days ago and was prescribed Paxilovid. Chest x-ray in the ED unremarkable. CT showed age-related degenerative changes in the brain. In the ED she was found found to have a potassium of 2.6 and sodium 105 with a hypochloridemia as well. Leukopenia mild thrombocytopenia. Lactic acid unremarkable. Potential culprit medications for hyponatremia could be the hydrochlorothiazide she is on She denies any nausea vomiting or diarrhea. No chest pain. She has a very mild nonproductive cough but denies shortness of breath. She appeared to be dry on a presentation was given IV fluid boluses in the ED. 12/20: Serum sodium initially improved to 109 yesterday evening, but this morning went back down to 105. Serum potassium improved to 3.7. On room air. Patient is c/o general weakness. Denies shortness of breath. c/o cough, denies wheezing. Denies fever, chills, or sweating. As per service tech/welder recs: 1200cc/day fluid restriction NaCl 2gm PO x1 Sodium phosphate 250mg PO QID Serum sodium q2hr Goal of correction: <8mEq/24 hours Goal serum sodium level >130 12/21: Serum sodium 110, potassium 2.9 this morning. Nursing has noticed swallowing difficulties. Patient denies any chest pain or palpitations. She denies any muscle cramps or muscle weakness. She denies any confusions or lethargy's. She is still complain of general weakness. 1200cc/day fluid restriction Sodium phosphate 500mg PO QID Sodium bicarbonate 650mg PO TID 3% sodium chloride 500ml @15cc/hr K rider 20mEq IV once Potassium chloride 40mEq PO BID Serum sodium q4hr Last day of Paxlovid therapy. Physical therapy Occupational Therapy and speech therapy evaluation and treatments. 12/22: Patient is on 2 L/min of oxygen. A large amount of phlegm was being sucked out earlier by RT. Sodium level 115, potassium level 3.5. Patient is c/o general weakness. Denies shortness of breath. c/o cough, denies wheezing. Denies fever, chills, or sweating. 1200cc/day fluid restriction Potassium phosphate 40mEq in sodium chloride infusing at 63ml/hr Serum sodium q4hr Physical therapy, occupational therapy, and speech therapy evaluations and treatments 12/23: Patient is currently on room air. She has been evaluated by speech therapist and currently on dysphagia diet. Last sodium level from earlier was 119, pot assium level pending. Patient states her strength has improved. Denies chest pain or palpitation. Denies shortness of breath. Denies fever, chills, or sweating. 1200cc/day fluid restriction 3% saline infusing at 15cc/hr KCL 40mEq PO BID Sodium q4hr Continue to work with Dr. Escamilla for electrolyte management, recs. appreciated Physical therapy, occupational therapy evaluations and treatments 12/24: Serum sodium 117 this morning, potassium 3.4. She is on 2L/min oxygen. Fever with Tmax 38.4 overnight. Patient states her strength has improved. Denies chest pain or palpitation. Denies shortness of breath. Denies fever, chills, or sweating. Good appetite. 1200cc/day fluid restriction 3% saline infusing at 15cc/hr Sodium q4hr Xujwfo-Etgy-G 500mg PO QID Goal serum sodium level: 122-125 Continue to touch base with PT OT regarding placement. Chest X ray Blood cultures 12/25: Low grade fever Tmax 37.3 overnight. On 2L/min oxygen. Sodium/potassium/magnesium 125/2.6/1.6, respectively. Blood cultures no growth to date. Patient states her strength has improved. Denies chest pain or palpitation. Denies shortness of breath. Denies fever, chills, or sweating. Good appetite. 1200cc/day fluid restriction 3% saline infusing at 15cc/hr KCl 40mEq IV once KCl 20mEq PO TID d/c Powwht-Vpqb-V 500mg PO QID Repeat chemistry panel and Mg this PM Goal of sodium: 126-130 12/26: Fever T-max 38.6 overnight. Currently on 2 L/min of oxygen. Morning labs pending today. Patient's denies any shortness of breath. She denies any cough or sputum productions or wheezings although nursing staff reported that she did have cough with sputum productions. She denies any subjective fever or chills or diaphoresis. She has good energy level. We will collect sputum culture and will start the patient's on broad-spectrum antibiotics coverage vancomycin and Zosyn to cover for any secondary bacterial pneumonia. Blood culture pending and no growth. 1200cc/day fluid restriction KCl 20mEq PO TID NaCl 2gm PO QID MgO 400mg PO BID Goal sodium 126-130 12/27 Constitutional Vitals: Vital Signs Temp Pulse Resp BP Pulse Ox O2 Del Method O2 Flow Rate 98.8 F 98 H 20 137/71 96 0 12/26/21 12:00 12/26/21 14:36 12/26/21 14:36 12/26/21 14:00 12/26/21 14:36 12/26/21 14:00 12/26/21 12:00 Period Temp Pulse Resp BP Sys/Kern Pulse Ox O2 Del Method O2 Flow Rate Last 24 Hr 98.8 F-101.4 F 77-98 13-20 118-148/58-112 90-97 Nasal Cannula- Room Air 0-3 Intake and Output 12/26/21 12/26/21 12/26/21 05:59 13:59 21:59 Intake Total 1110 120 Output Total 460 350 Balance -460 1110 -230 Intake & Output: Intake & Output 12/26/21 12/26/21 12/26/21 05:59 13:59 21:59 Intake Total 1110 120 Output Total 460 350 Balance -460 1110 -230 Intake: Nourishment/Supplement quantity 200 (ml) IV 550 Zosyn 3.375 gm In Dextrose 5% 50 in Water 50 ml @ 100 mls/hr IV Q8H [facility] Rx#:[id number] Vancomycin 1,500 mg In Sodium 500 Chloride 0.9% 500 ml @ 333.3 mls/hr IV Q24H [facility] Rx#: [id number] Oral 360 120 Output: Urine Catheter Amount 460 350 Other: Meal Breakfast Lunch Percent of Meal Consumed 25% 75% Feeding Ability Assist with Tray Set Up Assist with Tray Set Up Nourishment/Supplement name Ensure, 1/3 majic cup 1/3 majic cup Urine Appearance Cloudy Cloudy Sediment Urine Color Bright Yellow Light Arely Stool Size Moderate Stool Color Brown Stool Consistency Soft Formed Exam: General: Alert, awake, No acute Distress Eyes/N/T: EOMI, Head/Neck: neck supple, CV: RRR, No murmurs, Pulm: Clear b/l, no wheezing/rhonchi/rales Abd: soft, nontender, +BS x4 Ext: no clubbing/cyanosis, mild nonpitting edema Neuro: Alert, awake, no focal deficits, moves all extremities. Skin: warm/dry OBJ DATA Labs CBC & Chem 7: 12/26/21 06:13 12/26/21 06:13 Labs: Abnormal Lab Results 12/26/21 12/26/21 12/26/21 09:21 06:13 06:13 RBC 2.63 L Hgb 9.7 L Hct 26.9 L MCV 102.3 H MCH 36.9 H MCHC 36.1 H RDW 19.5 H Plt Count Immature Gran % (Auto) 5.2 H Lymph % (Auto) 14.1 L Brantley % (Auto) 40.6 H Lymph # (Auto) 0.96 L Brantley # (Auto) 2.76 H Immature Gran # 0.35 H Sodium 129 L Potassium Chloride 95 L BUN Creatinine 0.3 L Glucose Calcium 7.7 L Phosphorus 2.4 L Magnesium 1.5 L Total Protein 5.6 L Albumin 2.8 L Urine Appearance Cloudy A Urine Protein 100 A Urine Nitrate Pos A Urine Urobilinogen 4.0 A Ur Leukocyte Esterase 250 A Urine RBC 23 H Urine WBC > 182 H Urine Bacteria Few A Urine Mucus Many A 12/25/21 12/25/21 12/25/21 14:09 14:09 05:08 RBC Hgb Hct MCV MCH MCHC RDW Plt Count Immature Gran % (Auto) Lymph % (Auto) Brantley % (Auto) Lymph # (Auto) Brantley # (Auto) Immature Gran # Sodium 129 L 125 L Potassium 3.2 L 2.6 L* Chloride 94 L 89 L BUN 6 L Creatinine 0.4 L 0.3 L Glucose 167 H Calcium 7.0 L 7.7 L Phosphorus 2.1 L Magnesium 1.4 L Total Protein 5.6 L Albumin 3.0 L 2.8 L Urine Appearance Urine Protein Urine Nitrate Urine Urobilinogen Ur Leukocyte Esterase Urine RBC Urine WBC Urine Bacteria Urine Mucus 12/25/21 12/25/21 12/24/21 05:08 01:00 23:00 RBC 3.05 L Hgb 10.4 L Hct 30.1 L MCV MCH 34.1 H MCHC RDW 18.9 H Plt Count Immature Gran % (Auto) 2.5 H Lymph % (Auto) 10.6 L Brantley % (Auto) 39.9 H Lymph # (Auto) 0.69 L Brantley # (Auto) 2.60 H Immature Gran # 0.16 H Sodium 126 L 125 L Potassium Chloride BUN Creatinine Glucose Calcium Phosphorus Magnesium Total Protein Albumin Urine Appearance Urine Protein Urine Nitrate Urine Urobilinogen Ur Leukocyte Esterase Urine RBC Urine WBC Urine Bacteria Urine Mucus 12/24/21 12/24/21 12/24/21 20:57 17:09 13:02 RBC Hgb Hct MCV MCH MCHC RDW Plt Count Immature Gran % (Auto) Lymph % (Auto) Brantley % (Auto) Lymph # (Auto) Brantley # (Auto) Immature Gran # Sodium 126 L 121 L 127 L Potassium Chloride BUN Creatinine Glucose Calcium Phosphorus Magnesium Total Protein Albumin Urine Appearance Urine Protein Urine Nitrate Urine Urobilinogen Ur Leukocyte Esterase Urine RBC Urine WBC Urine Bacteria Urine Mucus 12/24/21 12/24/21 12/24/21 09:12 05:13 05:13 RBC 3.21 L Hgb 10.9 L Hct 31.2 L MCV MCH MCHC RDW 18.6 H Plt Count 130 L Immature Gran % (Auto) 2.7 H Lymph % (Auto) 9.6 L Brantley % (Auto) 36.5 H Lymph # (Auto) 0.65 L Brantley # (Auto) 2.48 H Immature Gran # 0.18 H Sodium 121 L 117 L* Potassium Chloride 85 L BUN 4 L Creatinine 0.3 L Glucose Calcium 7.9 L Phosphorus Magnesium Total Protein 5.8 L Albumin 2.9 L Urine Appearance Urine Protein Urine Nitrate Urine Urobilinogen Ur Leukocyte Esterase Urine RBC Urine WBC Urine Bacteria Urine Mucus 12/23/21 12/23/21 19:46 16:13 RBC Hgb Hct MCV MCH MCHC RDW Plt Count Immature Gran % (Auto) Lymph % (Auto) Brantley % (Auto) Lymph # (Auto) Brantley # (Auto) Immature Gran # Sodium 119 L* 120 L Potassium Chloride BUN Creatinine Glucose Calcium Phosphorus Magnesium Total Protein Albumin Urine Appearance Urine Protein Urine Nitrate Urine Urobilinogen Ur Leukocyte Esterase Urine RBC Urine WBC Urine Bacteria Urine Mucus Meds: Medications Acetaminophen (Acetaminophen 325 Mg Tablet) 650 mg PO Q6HP PRN; Protocol PRN Reason: Per Pain Protocol/Fever > 101 Last Admin: 12/26/21 02:53 Dose: 650 mg Albuterol/Ipratropium (Ipratropium/Albuterol 3 Ml Ampul.Neb) 3 ml NEB Q4HP PRN PRN Reason: Shortness Of Breath Last Admin: 12/26/21 09:11 Dose: 3 ml Benzonatate (Benzonatate 100 Mg Capsule) 200 mg PO TIDP PRN PRN Reason: Cough Last Admin: 12/26/21 15:01 Dose: 200 mg Diltiazem HCl (Diltiazem 240 Mg Cap.Xl.24h) 240 mg PO HS [facility] Last Admin: 12/25/21 21:25 Dose: 240 mg Docusate Sodium (Docusate Sodium 100 Mg Capsule) 100 mg PO BID [facility] Last Admin: 12/26/21 08:44 Dose: 100 mg Enoxaparin Sodium (Enoxaparin 40 Mg/0.4 Ml Syringe) 40 mg SQ DAILY [facility] Last Admin: 12/26/21 08:43 Dose: 40 mg Heparin Sodium (Porcine) (Heparin Flush 10 Units/Ml 5 Ml Syringe) 2 ml IV Q12 [facility] Last Admin: 12/26/21 08:37 Dose: Not Given Piperacillin Sod/Tazobactam (Sod 3.375 gm/ Dextrose) 50 mls @ 100 mls/hr IV Q8H [facility]; Protocol Last Admin: 12/26/21 14:09 Dose: 100 mls/hr Vancomycin HCl 1,500 mg/ (Sodium Chloride) 500 mls @ 333.3 mls/hr IV Q24H [facility] Last Infusion: 12/26/21 10:08 Dose: Infused Latanoprost (Latanoprost Ophth Drops 2.5ml Bottle) 1 gtt OU HS [facility] Last Admin: 12/25/21 21:27 Dose: 1 gtt Levothyroxine Sodium (Levothyroxine 50 Mcg Tablet) 50 mcg PO ACB [facility] Last Admin: 12/26/21 07:06 Dose: 50 mcg Magnesium Oxide (Magnesium Oxide 400 Mg Tablet) 400 mg PO TID [facility] Last Admin: 12/26/21 14:10 Dose: 400 mg Ondansetron HCl (Ondansetron 4 Mg/2 Ml Vial) 4 mg IV Q4HP PRN PRN Reason: Nausea And Vomiting Polyethylene Glycol (Polyethylene Glycol 3350 17 Gm Packet) 17 gm PO DAILYP PRN PRN Reason: Constipation Last Admin: 12/25/21 08:32 Dose: 17 gm Potassium Chloride (Potassium Chloride 20 Meq Tablet) 10 meq PO TIDCC [facility] Last Admin: 12/26/21 12:30 Dose: 10 meq Potassium/Phosphorus/Sodium (Neutra Phos 1 Packet) 2 packet PO QID [facility] Last Admin: 12/26/21 12:30 Dose: 2 packet Senna (Sennosides 1 Tablet) 2 tab PO DAILYP PRN PRN Reason: Constipation Sodium Chloride (0.9 % Sodium Chloride 10 Ml Syringe) 10 ml IV Q8 [facility] Last Admin: 12/26/21 14:09 Dose: 10 ml Sodium Chloride (0.9 % Sodium Chloride 10 Ml Syringe) 10 ml IV Q12 [facility] Last Admin: 12/26/21 08:38 Dose: Not Given Sodium Chloride (Sodium Chloride 1 Gm Tablet) 2 gm PO QID [facility] Last Admin: 12/26/21 14:06 Dose: 2 gm Timolol Maleate (Timolol 0.5% Ophth Drops Bottle 5ml) 1 gtt OU HS [facility] Last Admin: 12/25/21 21:26 Dose: 1 gtt Vancomycin HCl (Vancomycin Per Pharmacy) 1 order IV UD [facility]; Protocol A/P Narrative A/P Narrative: A: *Hyponatremia, severe, acute on chronic: -improving *Hypokalemia/hypochloremia: *mild met acidosis: *Encephalopathy (lethargy): 2/2 above. improved *COVID PNA: -finished paxlovid 12/21 *Acute hypoxic respite failure: 2/2 above *Leukopenia: likely viral from covid. resolved *Thrombocytopenia: suspect from viral infection. resolved *HTN: *Hypothyroidism: TSH *Dysphagia: P: -Nephrology following, fluid restrict, salt tabs -monitor sodium -Empiric antibiotics - -d/c'd home HCTZ -Replete electrolytes -cont home dilt/arb -PT/OT -Dysphagia diet per ST -ppx: Lovenox Full code Time Spent With Patient Time: Total time spent is greater than 50% in coordination of care (as documented) at patient's floor/unit and/or counseling patient: QUALITY VTE Deep Vein Thrombosis/Pulmonary Embolism Present on Admission: No
[2021-12-26 16:17] LABS: Albumin 3.2 gm/dL (3.2-5.2); Calcium 7.7 mg/dL (8.6-10.4); Phosphorous 1.9 mg/dL (2.5-4.5)
[2021-12-26] MEDS ORDERED: PHOSPHORUS 250 MG TABLET PO SCH (16:20)
[2021-12-26] MEDS ORDERED: POTASSIUM CHLORIDE 10 MEQ TABLET PO SCH (17:30)
[2021-12-26] MEDS: DILTIAZEM 240 MG CAP.XL.24H PO SCH (21:00)
[2021-12-26] MEDS ORDERED: hydrOXYzine 10 MG TABLET PO PRN (21:00)
[2021-12-26] MEDS: LATANOPROST OPHTH DROPS 2.5ML BOTTLE OU SCH (21:02)
[2021-12-26] MEDS: TIMOLOL 0.5% OPHTH DROPS BOTTLE 5ML OU SCH (21:02)
[2021-12-26] MEDS: MELATONIN 3 MG TABLET PO SCH (22:00)
[2021-12-26] MEDS ORDERED: MELATONIN 3 MG TABLET PO SCH ×2 (22:00)
[2021-12-26] MEDS ORDERED: LORazepam 2 MG/ML VIAL ONE (22:14)
[2021-12-26] MEDS ORDERED: MELATONIN 3 MG TABLET PO ONE (22:15)
[2021-12-26] MEDS: LORazepam 2 MG/ML VIAL IV PRN (22:18)
[2021-12-27] MEDS: PIPERACILLIN SODIUM/TAZOBACTAM 3.375 GM in DEXTROSE 5% IN WATER 50 ML IV SCH ×3 (05:03→20:41)
[2021-12-27] MEDS: 0.9 % SODIUM CHLORIDE 10 ML SYRINGE IV SCH ×5 (05:03→20:42)
[2021-12-27] MEDS: LEVOTHYROXINE 50 MCG TABLET PO SCH (07:16)
[2021-12-27 07:45] LABS: ALT/SGPT 17 U/L (<40); AST/SGOT 20 U/L (<32); Albumin 3.1 gm/dL (3.2-5.2); Albumin/Globulin Ratio 1.3 (1.0-2.3); Alkaline Phosphatase 49 U/L (39-117); Bilirubin,Direct < 0.2 mg/dL (0-0.3); Bilirubin,Total 0.5 mg/dL (0.1-1.0); Blood Urea Nitrogen 8 mg/dL (8-23); Carbon Dioxide 25 mmol/L (22-30); Chloride 94 mmol/L (96-108); Globulin 2.3 gm/dL (2.2-3.7); Glomerular Filtration Rate 109; Glucose 97 mg/dL (70-105); Lactate Dehydrogenase 324 U/L (135-225); Phosphorous 3.6 mg/dL (2.5-4.5); Triglycerides 76 mg/dL (<150); Uric Acid 0.7 mg/dL (2.5-8.0)
--- NOTE | 2021-12-27 08:00 | Nephrology Progress Note ---
SUBJECTIVE Subjective Patient information: Note initiated : 12/27/21 at 7:58 am Patient: Amna Wei 81 y/o F admitted on 12/19/21 for weakness/COVID+. Chief Complaint: Weakness Pertinent ROS: Weakness Dyspnea Constitutional Vitals: Vital Signs Temp Pulse Resp BP Pulse Ox O2 Del Method O2 Flow Rate 98.9 F 79 14 121/61 98 4 12/27/21 04:00 12/27/21 02:03 12/27/21 04:00 12/27/21 02:00 12/27/21 02:03 12/27/21 05:28 12/27/21 05:28 Period Temp Pulse Resp BP Sys/Kern Pulse Ox O2 Del Method O2 Flow Rate Last 24 Hr 97.4 F-99.8 F 79-98 13-24 119-147/59-117 87-99 Nasal Cannula- Room Air 0-5 Intake and Output 12/26/21 12/27/21 12/27/21 21:59 05:59 13:59 Intake Total 730 518 Output Total 700 1200 Balance 30 -682 Weight 173 lb 2 oz Intake & Output: Intake & Output 12/26/21 12/27/21 12/27/21 21:59 05:59 13:59 Intake Total 730 518 Output Total 700 1200 Balance 30 -682 Weight 173 lb 2 oz Intake: Nourishment/Supplement quantity 120 (ml) IV 50 100 Zosyn 3.375 gm In Dextrose 5% 50 100 in Water 50 ml @ 100 mls/hr IV Q8H [facility] Rx#:[id number] Oral 560 418 Output: Urine Catheter Amount 700 1200 Other: Meal Dinner Percent of Meal Consumed 50% Feeding Ability Assist with Tray Set Up Nourishment/Supplement name Ensure Urine Appearance Cloudy Clear Sediment Marquez Clear Urine Color Yellow Yellow Marquez Yellow Stool Size Moderate Stool Color Brown Stool Consistency Soft # Bowel Movements 1 General appearance: cooperative and no acute distress Head Head exam: Present normal inspection Eye Eye exam: Present normal appearance ENT ENT exam: Present mucous membranes moist Respiratory Respiratory exam: Absent respiratory distress Cardiovascular Cardiovascular exam: Present normal rate and rhythm GI/Abdominal GI/Abdominal exam: Present soft; Absent tenderness Extremities Exam Extremities exam: Absent joint swelling or pedal edema Neurological Exam Neurological exam: Present alert and oriented X3 Psychiatric Psychiatric exam: Present normal affect and normal mood Skin Skin exam: Present warm; Absent rash A/P Assessment and plan (1) Hyponatremia: Assessment and plan: Amna Wei is a 81-year-old female brought to ED by EMS for worsening weakness over the last 24 hours. She was diagnosed with COVID-19 4 days ago. Since that time she has been on Paxlovid that was prescribed by her PCP. In ED, her serum sodium was 105. She was given 2 L NS and admitted to ICU. Her repeat POC serum sodium was 109 after 5 hours. Nephrology consultation was requested for hyponatremia. 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 Covid complicated with sepsis. WORKUP Urinalysis on 12/19/21: Straw, Clear, pH 8.0, SG 1.005, protein 100, blood 0.03, leukocyte esterase negative, urine WBC. CXR on 12/19/21: Normal. CT Head on 12/19/21: Normal age-related degenerative changes in the brain. 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 Severe right maxillary and moderate bilateral frontal sinusitis. Urine Sodium on 12/19/21: 76 PROGRESS Serum sodium range: 12/19: 105-109 12/20: 105-111 12/21: 108-113; 125 was a sampling error (sample obtained proximal to hypertonic saline infusion). 12/22: 113-121 12/23: 119-120 12/24: 117-127 12/25: 125-129 12/26: 129-132 12/27: 130 Urine output: 1,900 ml reported in the past 24 hours. RECOMMENDATIONS AND PLAN Potassium Chloride, Magnesium Oxideand Ufegmi-Bmad-C discontinued. Recommend continue Sodium Chloride 2 g PO QID. 1200 ml/day fluid restriction. Target serum sodium today: 130-135. Nephrology will sign off. Status: Chronic Time Spent With Patient Time: Total time spent is greater than 50% in coordination of care (as documented) at patient's floor/unit and/or counseling patient:
--- NOTE | 2021-12-27 08:23 | Internal Med Progress Note ---
SUBJECTIVE Subjective Patient information: Note initiated : 12/27/21 at 8:19 am Service Date, if different from initiated Date: [] Patient: Amna Wei a 81 y/o F admitted on 12/19/21 for weakness/COVID+. Chief Complaint: [] Interval history: History of present illness: Ms. Wei is a 81 year old F Presents ED with increasing weakness poor appetite. Patient not eating and drinking very well. Per family she also has some very mild confusion more so is lethargic and drowsy.. Extremely weak she could not get out of bed. Patient diagnosed with COVID several days ago and was prescribed Paxilovid. Chest x-ray in the ED unremarkable. CT showed age-related degenerative changes in the brain. In the ED she was found found to have a potassium of 2.6 and sodium 105 with a hypochloridemia as well. Leukopenia mild thrombocytopenia. Lactic acid unremarkable. Potential culprit medications for hyponatremia could be the hydrochlorothiazide she is on She denies any nausea vomiting or diarrhea. No chest pain. She has a very mild nonproductive cough but denies shortness of breath. She appeared to be dry on a presentation was given IV fluid boluses in the ED. 12/20: Serum sodium initially improved to 109 yesterday evening, but this morning went back down to 105. Serum potassium improved to 3.7. On room air. Patient is c/o general weakness. Denies shortness of breath. c/o cough, denies wheezing. Denies fever, chills, or sweating. As per director of alumni relations recs: 1200cc/day fluid restriction NaCl 2gm PO x1 Sodium phosphate 250mg PO QID Serum sodium q2hr Goal of correction: <8mEq/24 hours Goal serum sodium level >130 12/21: Serum sodium 110, potassium 2.9 this morning. Nursing has noticed swallowing difficulties. Patient denies any chest pain or palpitations. She denies any muscle cramps or muscle weakness. She denies any confusions or lethargy's. She is still complain of general weakness. 1200cc/day fluid restriction Sodium phosphate 500mg PO QID Sodium bicarbonate 650mg PO TID 3% sodium chloride 500ml @15cc/hr K rider 20mEq IV once Potassium chloride 40mEq PO BID Serum sodium q4hr Last day of Paxlovid therapy. Physical therapy Occupational Therapy and speech therapy evaluation and treatments. 12/22: Patient is on 2 L/min of oxygen. A large amount of phlegm was being sucked out earlier by RT. Sodium level 115, potassium level 3.5. Patient is c/o general weakness. Denies shortness of breath. c/o cough, denies wheezing. Denies fever, chills, or sweating. 1200cc/day fluid restriction Potassium phosphate 40mEq in sodium chloride infusing at 63ml/hr Serum sodium q4hr Physical therapy, occupational therapy, and speech therapy evaluations and treatments 12/23: Patient is currently on room air. She has been evaluated by speech therapist and currently on dysphagia diet. Last sodium level from earlier was 119, pot assium level pending. Patient states her strength has improved. Denies chest pain or palpitation. Denies shortness of breath. Denies fever, chills, or sweating. 1200cc/day fluid restriction 3% saline infusing at 15cc/hr KCL 40mEq PO BID Sodium q4hr Continue to work with Dr. Escamilla for electrolyte management, recs. appreciated Physical therapy, occupational therapy evaluations and treatments 12/24: Serum sodium 117 this morning, potassium 3.4. She is on 2L/min oxygen. Fever with Tmax 38.4 overnight. Patient states her strength has improved. Denies chest pain or palpitation. Denies shortness of breath. Denies fever, chills, or sweating. Good appetite. 1200cc/day fluid restriction 3% saline infusing at 15cc/hr Sodium q4hr [id number] 500mg PO QID Goal serum sodium level: 122-125 Continue to touch base with PT OT regarding placement. Chest X ray Blood cultures 12/25: Low grade fever Tmax 37.3 overnight. On 2L/min oxygen. Sodium/potassium/magnesium 125/2.6/1.6, respectively. Blood cultures no growth to date. Patient states her strength has improved. Denies chest pain or palpitation. Denies shortness of breath. Denies fever, chills, or sweating. Good appetite. 1200cc/day fluid restriction 3% saline infusing at 15cc/hr KCl 40mEq IV once KCl 20mEq PO TID d/c [id number] 500mg PO QID Repeat chemistry panel and Mg this PM Goal of sodium: 126-130 12/26: Fever T-max 38.6 overnight. Currently on 2 L/min of oxygen. Morning labs pending today. Patient's denies any shortness of breath. She denies any cough or sputum productions or wheezings although nursing staff reported that she did have cough with sputum productions. She denies any subjective fever or chills or diaphoresis. She has good energy level. We will collect sputum culture and will start the patient's on broad-spectrum antibiotics coverage vancomycin and Zosyn to cover for any secondary bacterial pneumonia. Blood culture pending and no growth. 1200cc/day fluid restriction KCl 20mEq PO TID NaCl 2gm PO QID MgO 400mg PO BID Goal sodium 126-130 12/27 Patient still on oxygen. Was able to titrate to room air yesterday afternoon for a while but then overnight needed oxygen. Chest x-ray shows effusions and b ilateral infiltrates appear to be increasing. Patient did spike a fever once yesterday card checker at 3 AM, none since then. No leukocytosis on that day's labs. Hyponatremia today noted. Phos and mag better today. Patient has mild cough. Denies shortness of breath. Review of Systems: denies headache/fever/chills/nausea/vomiting/chest or abdominal pain/diarrhea. Otherwise see above. Constitutional Vitals: Vital Signs Temp Pulse Resp BP Pulse Ox O2 Del Method O2 Flow Rate 98.9 F 79 14 121/61 98 4 12/27/21 04:00 12/27/21 02:03 12/27/21 04:00 12/27/21 02:00 12/27/21 02:03 12/27/21 05:28 12/27/21 05:28 Period Temp Pulse Resp BP Sys/Kern Pulse Ox O2 Del Method O2 Flow Rate Last 24 Hr 97.4 F-98.9 F 79-98 13-24 119-147/59-117 87-99 Nasal Cannula- Room Air 0-5 Intake and Output 12/26/21 12/27/21 12/27/21 21:59 05:59 13:59 Intake Total 730 518 Output Total 700 1200 Balance 30 -682 Weight 78.528 kg Intake & Output: Intake & Output 12/26/21 12/27/21 12/27/21 21:59 05:59 13:59 Intake Total 730 518 Output Total 700 1200 Balance 30 -682 Weight 78.528 kg Intake: Nourishment/Supplement quantity 120 (ml) IV 50 100 Zosyn 3.375 gm In Dextrose 5% 50 100 in Water 50 ml @ 100 mls/hr IV Q8H BREE[facility]Y Rx#:[id number] Oral 560 418 Output: Urine Catheter Amount 700 1200 Other: Meal Dinner Percent of Meal Consumed 50% Feeding Ability Assist with Tray Set Up Nourishment/Supplement name Ensure Urine Appearance Cloudy Clear Sediment Marquez Clear Urine Color Yellow Yellow Marquez Yellow Stool Size Moderate Stool Color Brown Stool Consistency Soft # Bowel Movements 1 Exam: General: Alert, awake, No acute Distress Eyes/N/T: EOMI, Head/Neck: neck supple, CV: RRR, No murmurs, Pulm: mild b/l rales, no wheezing Abd: soft, nontender, +BS x4 Ext: no clubbing/cyanosis, mild nonpitting edema Neuro: Alert, awake, no focal deficits, moves all extremities. Skin: warm/dry OBJ DATA Labs CBC & Chem 7: 12/26/21 06:13 12/27/21 04:53 Labs: Abnormal Lab Results 12/27/21 12/26/21 12/26/21 04:53 14:54 14:54 RBC Hgb Hct MCV MCH MCHC RDW Immature Gran % (Auto) Lymph % (Auto) [place] % (Auto) Lymph # (Auto) [place] # (Auto) Immature Gran # Sodium 130 L 132 L Potassium Chloride 94 L BUN Creatinine 0.3 L 0.4 L Glucose 159 H Uric Acid 0.7 L Calcium 8.0 L 7.7 L Phosphorus 1.9 L Magnesium 1.4 L Lactate Dehydrogenase 324 H Total Protein 5.4 L Albumin 3.1 L Urine Appearance Urine Protein Urine Nitrate Urine Urobilinogen Ur Leukocyte Esterase Urine RBC Urine WBC Urine Bacteria Urine Mucus 12/26/21 12/26/21 12/26/21 09:21 06:13 06:13 RBC 2.63 L Hgb 9.7 L Hct 26.9 L MCV 102.3 H MCH 36.9 H MCHC 36.1 H RDW 19.5 H Immature Gran % (Auto) 5.2 H Lymph % (Auto) 14.1 L [place] % (Auto) 40.6 H Lymph # (Auto) 0.96 L [place] # (Auto) 2.76 H Immature Gran # 0.35 H Sodium 129 L Potassium Chloride 95 L BUN Creatinine 0.3 L Glucose Uric Acid Calcium 7.7 L Phosphorus 2.4 L Magnesium 1.5 L Lactate Dehydrogenase Total Protein 5.6 L Albumin 2.8 L Urine Appearance Cloudy A Urine Protein 100 A Urine Nitrate Pos A Urine Urobilinogen 4.0 A Ur Leukocyte Esterase 250 A Urine RBC 23 H Urine WBC > 182 H Urine Bacteria Few A Urine Mucus Many A 12/25/21 12/25/21 12/25/21 14:09 14:09 05:08 RBC Hgb Hct MCV MCH MCHC RDW Immature Gran % (Auto) Lymph % (Auto) [place] % (Auto) Lymph # (Auto) [place] # (Auto) Immature Gran # Sodium 129 L 125 L Potassium 3.2 L 2.6 L* Chloride 94 L 89 L BUN 6 L Creatinine 0.4 L 0.3 L Glucose 167 H Uric Acid Calcium 7.0 L 7.7 L Phosphorus 2.1 L Magnesium 1.4 L Lactate Dehydrogenase Total Protein 5.6 L Albumin 3.0 L 2.8 L Urine Appearance Urine Protein Urine Nitrate Urine Urobilinogen Ur Leukocyte Esterase Urine RBC Urine WBC Urine Bacteria Urine Mucus 12/25/21 12/25/21 12/24/21 05:08 01:00 23:00 RBC 3.05 L Hgb 10.4 L Hct 30.1 L MCV MCH 34.1 H MCHC RDW 18.9 H Immature Gran % (Auto) 2.5 H Lymph % (Auto) 10.6 L [place] % (Auto) 39.9 H Lymph # (Auto) 0.69 L [place] # (Auto) 2.60 H Immature Gran # 0.16 H Sodium 126 L 125 L Potassium Chloride BUN Creatinine Glucose Uric Acid Calcium Phosphorus Magnesium Lactate Dehydrogenase Total Protein Albumin Urine Appearance Urine Protein Urine Nitrate Urine Urobilinogen Ur Leukocyte Esterase Urine RBC Urine WBC Urine Bacteria Urine Mucus 12/24/21 12/24/21 12/24/21 20:57 17:09 13:02 RBC Hgb Hct MCV MCH MCHC RDW Immature Gran % (Auto) Lymph % (Auto) [place] % (Auto) Lymph # (Auto) [place] # (Auto) Immature Gran # Sodium 126 L 121 L 127 L Potassium Chloride BUN Creatinine Glucose Uric Acid Calcium Phosphorus Magnesium Lactate Dehydrogenase Total Protein Albumin Urine Appearance Urine Protein Urine Nitrate Urine Urobilinogen Ur Leukocyte Esterase Urine RBC Urine WBC Urine Bacteria Urine Mucus 12/24/21 09:12 RBC Hgb Hct MCV MCH MCHC RDW Immature Gran % (Auto) Lymph % (Auto) [place] % (Auto) Lymph # (Auto) [place] # (Auto) Immature Gran # Sodium 121 L Potassium Chloride BUN Creatinine Glucose Uric Acid Calcium Phosphorus Magnesium Lactate Dehydrogenase Total Protein Albumin Urine Appearance Urine Protein Urine Nitrate Urine Urobilinogen Ur Leukocyte Esterase Urine RBC Urine WBC Urine Bacteria Urine Mucus Meds: Medications Acetaminophen (Acetaminophen 325 Mg Tablet) 650 mg PO Q6HP PRN; Protocol PRN Reason: Per Pain Protocol/Fever > 101 Last Admin: 12/26/21 21:00 Dose: 650 mg Albuterol/Ipratropium (Ipratropium/Albuterol 3 Ml Ampul.Neb) 3 ml NEB Q4HP PRN PRN Reason: Shortness Of Breath Last Admin: 12/26/21 09:11 Dose: 3 ml Benzonatate (Benzonatate 100 Mg Capsule) 200 mg PO TIDP PRN PRN Reason: Cough Last Admin: 12/26/21 20:59 Dose: 200 mg Diltiazem HCl (Diltiazem 240 Mg Cap.Xl.24h) 240 mg PO HS [facility] Last Admin: 12/26/21 21:00 Dose: 240 mg Docusate Sodium (Docusate Sodium 100 Mg Capsule) 100 mg PO BID [facility] Last Admin: 12/26/21 20:59 Dose: 100 mg Enoxaparin Sodium (Enoxaparin 40 Mg/0.4 Ml Syringe) 40 mg SQ DAILY [facility] Last Admin: 12/26/21 08:43 Dose: 40 mg Heparin Sodium (Porcine) (Heparin Flush 10 Units/Ml 5 Ml Syringe) 2 ml IV Q12 [facility] Last Admin: 12/26/21 21:03 Dose: Not Given Hydroxyzine HCl (Hydroxyzine 10 Mg Tablet) 50 mg PO HSP PRN PRN Reason: ANXIETY/SEDATION Piperacillin Sod/Tazobactam (Sod 3.375 gm/ Dextrose) 50 mls @ 100 mls/hr IV Q8H [facility]; Protocol Last Infusion: 12/27/21 05:34 Dose: Infused Vancomycin HCl 1,500 mg/ (Sodium Chloride) 500 mls @ 333.3 mls/hr IV Q24H [facility] Last Infusion: 12/26/21 10:08 Dose: Infused Latanoprost (Latanoprost Ophth Drops 2.5ml Bottle) 1 gtt OU HS [facility] Last Admin: 12/26/21 21:02 Dose: 1 gtt Levothyroxine Sodium (Levothyroxine 50 Mcg Tablet) 50 mcg PO ACB [facility] Last Admin: 12/27/21 07:16 Dose: 50 mcg Lorazepam (Lorazepam 2 Mg/Ml Vial) 0.5 mg IV Q6HP PRN PRN Reason: ANXIETY/SEDATION Last Admin: 12/26/21 22:18 Dose: 0.5 mg Melatonin (Melatonin 3 Mg Tablet) 3 mg PO HS [facility] Last Admin: 12/26/21 22:00 Dose: Not Given Ondansetron HCl (Ondansetron 4 Mg/2 Ml Vial) 4 mg IV Q4HP PRN PRN Reason: Nausea And Vomiting Polyethylene Glycol (Polyethylene Glycol 3350 17 Gm Packet) 17 gm PO DAILYP PRN PRN Reason: Constipation Last Admin: 12/25/21 08:32 Dose: 17 gm Senna (Sennosides 1 Tablet) 2 tab PO DAILYP PRN PRN Reason: Constipation Sodium Chloride (0.9 % Sodium Chloride 10 Ml Syringe) 10 ml IV Q8 [facility] Last Admin: 12/27/21 05:03 Dose: 10 ml Sodium Chloride (0.9 % Sodium Chloride 10 Ml Syringe) 10 ml IV Q12 [facility] Last Admin: 12/26/21 21:04 Dose: Not Given Sodium Chloride (Sodium Chloride 1 Gm Tablet) 1 gm PO QID [facility] Last Admin: 12/26/21 20:59 Dose: 1 gm Timolol Maleate (Timolol 0.5% Ophth Drops Bottle 5ml) 1 gtt OU HS [facility] Last Admin: 12/26/21 21:02 Dose: 1 gtt Vancomycin HCl (Vancomycin Per Pharmacy) 1 order IV UD [facility]; Protocol A/P Narrative A/P Narrative: A: *Hyponatremia, severe, acute 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 improved *COVID PNA vs Bacterial PNA: -finished paxlovid 12/21 *Acute hypoxic respite failure: 2/2 above -on 2LNC *Leukopenia: likely viral from covid. resolved *Thrombocytopenia: suspect from viral infection. resolved *HTN: *Hypothyroidism: TSH *Dysphagia: P: -Nephrology signing off, fluid restrict, salt tabs -monitor sodium -Empiric antibiotics, f/u pct, mrsa screen - -d/c'd home HCTZ -Replete electrolytes -cont home dilt/arb -PT/OT -Dysphagia diet per ST -ppx: Lovenox Full code Time Spent With Patient Time: Total time spent is greater than 50% in coordination of care (as documented) at patient's floor/unit and/or counseling patient: Total time spent with greater than 50% in coordination of care (as documented) at patient's floor/unit and/or counseling patient:: 25 - 35 minutes QUALITY VTE Deep Vein Thrombosis/Pulmonary Embolism Present on Admission: No
--- NOTE | 2021-12-27 09:03 | XRay Report ---
INDICATION: f/u infiltrate TECHNIQUE: AP portable semiupright chest x-ray COMPARISON: Previous chest x-rays dated 12/24/2021, 12/19/2021, 09/27/2021 FINDINGS: Bilateral pulmonary parenchymal infiltrates or atelectasis. Findings are new since 12/19/2021 and worse since 12/24/2021.. Continued follow-up recommended. Linear densities in the upper lungs bilaterally consistent with mild atelectasis. Findings incidental bilateral pleural effusions, left larger than right. IMPRESSION: 1. Increasing bilateral pulmonary parenchymal infiltrates. Findings may be due to pneumonia or benign atelectasis. 2. Findings consistent with bilateral pleural effusions, left worse than right Interpreted and Authenticated by: Jeremie Lawson 12/27/21
[2021-12-27] MEDS: SODIUM CHLORIDE 1 GM TABLET PO SCH ×4 (09:27→20:41)
[2021-12-27] MEDS: DOCUSATE SODIUM 100 MG CAPSULE PO SCH ×2 (09:27→20:42)
[2021-12-27] MEDS: VANCOMYCIN 1,500 MG in 0.9 % SODIUM CHLORIDE 500 ML IV SCH (09:27)
[2021-12-27] MEDS: ENOXAPARIN 40 MG/0.4 ML SYRINGE SQ SCH (09:27)
[2021-12-27] MEDS ORDERED: FUROSEMIDE 40 MG/4 ML VIAL IV SCH (11:15)
[2021-12-27] MEDS ORDERED: ALBUMIN HUMAN 12.5 GM/50 ML BAG IV SCH (11:15)
[2021-12-27] MEDS: LORazepam 2 MG/ML VIAL IV PRN (20:41)
[2021-12-27] MEDS: MELATONIN 3 MG TABLET PO SCH (20:41)
[2021-12-27] MEDS: DILTIAZEM 240 MG CAP.XL.24H PO SCH (20:42)
[2021-12-27] MEDS: TIMOLOL 0.5% OPHTH DROPS BOTTLE 5ML OU SCH (20:43)
[2021-12-27] MEDS: LATANOPROST OPHTH DROPS 2.5ML BOTTLE OU SCH (20:43)
[2021-12-28] MEDS: PIPERACILLIN SODIUM/TAZOBACTAM 3.375 GM in DEXTROSE 5% IN WATER 50 ML IV SCH ×3 (05:07→20:50)
[2021-12-28 06:55] LABS: ALT/SGPT 17 U/L (<40); AST/SGOT 26 U/L (<32); Albumin/Globulin Ratio 0.9 (1.0-2.3); Alkaline Phosphatase 62 U/L (39-117); Bilirubin,Direct < 0.2 mg/dL (0-0.3); Bilirubin,Total 0.6 mg/dL (0.1-1.0); Blood Urea Nitrogen 11 mg/dL (8-23); Calcium 8.6 mg/dL (8.6-10.4); Carbon Dioxide 25 mmol/L (22-30); Chloride 92 mmol/L (96-108); Globulin 3.2 gm/dL (2.2-3.7); Glomerular Filtration Rate 86; Glucose 103 mg/dL (70-105); Lactate Dehydrogenase 368 U/L (135-225); Phosphorous 4.2 mg/dL (2.5-4.5); Triglycerides 77 mg/dL (<150); Uric Acid 1.4 mg/dL (2.5-8.0)
--- NOTE | 2021-12-28 08:04 | Internal Med Progress Note ---
SUBJECTIVE Subjective Patient information: Note initiated : 12/28/21 at 8:02 am Service Date, if different from initiated Date: [] Patient: Amna Wei a 81 y/o F admitted on 12/19/21 for weakness/COVID+. Chief Complaint: [] Interval history: History of present illness: Ms. Wei is a 81 year old F Presents ED with increasing weakness poor appetite. Patient not eating and drinking very well. Per family she also has some very mild confusion more so is lethargic and drowsy.. Extremely weak she could not get out of bed. Patient diagnosed with COVID several days ago and was prescribed Paxilovid. Chest x-ray in the ED unremarkable. CT showed age-related degenerative changes in the brain. In the ED she was found found to have a potassium of 2.6 and sodium 105 with a hypochloridemia as well. Leukopenia mild thrombocytopenia. Lactic acid unremarkable. Potential culprit medications for hyponatremia could be the hydrochlorothiazide she is on She denies any nausea vomiting or diarrhea. No chest pain. She has a very mild nonproductive cough but denies shortness of breath. She appeared to be dry on a presentation was given IV fluid boluses in the ED. 12/20: Serum sodium initially improved to 109 yesterday evening, but this morning went back down to 105. Serum potassium improved to 3.7. On room air. Patient is c/o general weakness. Denies shortness of breath. c/o cough, denies wheezing. Denies fever, chills, or sweating. As per animal control officer recs: 1200cc/day fluid restriction NaCl 2gm PO x1 Sodium phosphate 250mg PO QID Serum sodium q2hr Goal of correction: <8mEq/24 hours Goal serum sodium level >130 12/21: Serum sodium 110, potassium 2.9 this morning. Nursing has noticed swallowing difficulties. Patient denies any chest pain or palpitations. She denies any muscle cramps or muscle weakness. She denies any confusions or lethargy's. She is still complain of general weakness. 1200cc/day fluid restriction Sodium phosphate 500mg PO QID Sodium bicarbonate 650mg PO TID 3% sodium chloride 500ml @15cc/hr K rider 20mEq IV once Potassium chloride 40mEq PO BID Serum sodium q4hr Last day of Paxlovid therapy. Physical therapy Occupational Therapy and speech therapy evaluation and treatments. 12/22: Patient is on 2 L/min of oxygen. A large amount of phlegm was being sucked out earlier by RT. Sodium level 115, potassium level 3.5. Patient is c/o general weakness. Denies shortness of breath. c/o cough, denies wheezing. Denies fever, chills, or sweating. 1200cc/day fluid restriction Potassium phosphate 40mEq in sodium chloride infusing at 63ml/hr Serum sodium q4hr Physical therapy, occupational therapy, and speech therapy evaluations and treatments 12/23: Patient is currently on room air. She has been evaluated by speech therapist and currently on dysphagia diet. Last sodium level from earlier was 119, pot assium level pending. Patient states her strength has improved. Denies chest pain or palpitation. Denies shortness of breath. Denies fever, chills, or sweating. 1200cc/day fluid restriction 3% saline infusing at 15cc/hr KCL 40mEq PO BID Sodium q4hr Continue to work with Dr. Escamilla for electrolyte management, recs. appreciated Physical therapy, occupational therapy evaluations and treatments 12/24: Serum sodium 117 this morning, potassium 3.4. She is on 2L/min oxygen. Fever with Tmax 38.4 overnight. Patient states her strength has improved. Denies chest pain or palpitation. Denies shortness of breath. Denies fever, chills, or sweating. Good appetite. 1200cc/day fluid restriction 3% saline infusing at 15cc/hr Sodium q4hr Vhahxi-Lmgr-B 500mg PO QID Goal serum sodium level: 122-125 Continue to touch base with PT OT regarding placement. Chest X ray Blood cultures 12/25: Low grade fever Tmax 37.3 overnight. On 2L/min oxygen. Sodium/potassium/magnesium 125/2.6/1.6, respectively. Blood cultures no growth to date. Patient states her strength has improved. Denies chest pain or palpitation. Denies shortness of breath. Denies fever, chills, or sweating. Good appetite. 1200cc/day fluid restriction 3% saline infusing at 15cc/hr KCl 40mEq IV once KCl 20mEq PO TID d/c Szkdck-Nmab-S 500mg PO QID Repeat chemistry panel and Mg this PM Goal of sodium: 126-130 12/26: Fever T-max 38.6 overnight. Currently on 2 L/min of oxygen. Morning labs pending today. Patient's denies any shortness of breath. She denies any cough or sputum productions or wheezings although nursing staff reported that she did have cough with sputum productions. She denies any subjective fever or chills or diaphoresis. She has good energy level. We will collect sputum culture and will start the patient's on broad-spectrum antibiotics coverage vancomycin and Zosyn to cover for any secondary bacterial pneumonia. Blood culture pending and no growth. 1200cc/day fluid restriction KCl 20mEq PO TID NaCl 2gm PO QID MgO 400mg PO BID Goal sodium 126-130 12/27 Patient still on oxygen. Was able to titrate to room air yesterday afternoon for a while but then overnight needed oxygen. Chest x-ray shows effusions and b ilateral infiltrates appear to be increasing. 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 No leukocytosis on that day's labs. Hyponatremia today noted. Phos and mag better today. Patient has mild cough. Denies shortness of breath. 12/28 IV diuresis today for volume overload with good results and will give today as well. Patient overall feels much better. Sodium still low at 131 but stable. No new complaints. Follow-up chest x-ray after diuresis Review of Systems:. denies headache/fever/chills/nausea/vomiting/chest or abdominal pain/diarrhea. Otherwise see above. Constitutional Vitals: Vital Signs Temp Pulse Resp BP Pulse Ox O2 Del Method O2 Flow Rate 98 F 87 21 132/74 99 3 12/28/21 04:26 12/28/21 06:00 12/28/21 06:00 12/28/21 06:00 12/28/21 06:00 12/28/21 05:34 12/28/21 05:34 Period Temp Pulse Resp BP Sys/Kern Pulse Ox O2 Del Method O2 Flow Rate Last 24 Hr 97.8 F-99.1 F 73-101 16-25 117-134/60-79 90-99 Nasal Cannula- Room Air, Nasal Cannula 2-3 Intake and Output 12/27/21 12/28/21 12/28/21 21:59 05:59 13:59 Intake Total 840 400 Output Total 2200 1600 Balance -1360 -1200 Weight 78.273 kg Intake & Output: Intake & Output 12/27/21 12/28/21 12/28/21 21:59 05:59 13:59 Intake Total 840 400 Output Total 2200 1600 Balance -1360 -1200 Weight 78.273 kg Intake: IV 600 100 Zosyn 3.375 gm In Dextrose 5% 50 100 in Water 50 ml @ 100 mls/hr IV Q8H [facility] Rx#:[id number] Vancomycin 1,500 mg In Sodium 500 Chloride 0.9% 500 ml @ 333.3 mls/hr IV Q24H [facility] Rx#: [id number] Oral 240 300 Output: Urine Catheter Amount 2200 1600 Other: Urine Appearance Clear Clear Marquez Clear Urine Color Dark Yellow Dark Yellow Marquez Dark Yellow Urine Odor Normal Exam: General: Alert, awake, No acute Distress Eyes/N/T: EOMI, Head/Neck: neck supple, CV: RRR, No murmurs, Pulm: minimal b/l rales, no wheezing Abd: soft, nontender, +BS x4 Ext: no clubbing/cyanosis, mild nonpitting edema Neuro: Alert, awake, no focal deficits, moves all extremities. Skin: warm/dry OBJ DATA Labs CBC & Chem 7: 12/26/21 06:13 12/28/21 05:08 Labs: Abnormal Lab Results 12/28/21 12/27/21 12/27/21 05:08 04:53 04:53 RBC Hgb Hct MCV MCH MCHC RDW Immature Gran % (Auto) Lymph % (Auto) Crisp % (Auto) Lymph # (Auto) Crisp # (Auto) Immature Gran # Sodium 131 L 130 L Potassium Chloride 92 L 94 L Creatinine 0.3 L Glucose Uric Acid 1.4 L 0.7 L Calcium 8.0 L Phosphorus Magnesium Lactate Dehydrogenase 368 H 324 H Total Protein 5.4 L Albumin 3.0 L 3.1 L Albumin/Globulin Ratio 0.9 L Procalcitonin 0.13 H Urine Appearance Urine Protein Urine Nitrate Urine Urobilinogen Ur Leukocyte Esterase Urine RBC Urine WBC Urine Bacteria Urine Mucus 12/26/21 12/26/21 12/26/21 14:54 14:54 09:21 RBC Hgb Hct MCV MCH MCHC RDW Immature Gran % (Auto) Lymph % (Auto) Crisp % (Auto) Lymph # (Auto) Crisp # (Auto) Immature Gran # Sodium 132 L Potassium Chloride Creatinine 0.4 L Glucose 159 H Uric Acid Calcium 7.7 L Phosphorus 1.9 L Magnesium 1.4 L Lactate Dehydrogenase Total Protein Albumin Albumin/Globulin Ratio Procalcitonin Urine Appearance Cloudy A Urine Protein 100 A Urine Nitrate Pos A Urine Urobilinogen 4.0 A Ur Leukocyte Esterase 250 A Urine RBC 23 H Urine WBC > 182 H Urine Bacteria Few A Urine Mucus Many A 12/26/21 12/26/21 12/25/21 06:13 06:13 14:09 RBC 2.63 L Hgb 9.7 L Hct 26.9 L MCV 102.3 H MCH 36.9 H MCHC 36.1 H RDW 19.5 H Immature Gran % (Auto) 5.2 H Lymph % (Auto) 14.1 L Crisp % (Auto) 40.6 H Lymph # (Auto) 0.96 L Crisp # (Auto) 2.76 H Immature Gran # 0.35 H Sodium 129 L Potassium Chloride 95 L Creatinine 0.3 L Glucose Uric Acid Calcium 7.7 L Phosphorus 2.4 L Magnesium 1.5 L 1.4 L Lactate Dehydrogenase Total Protein 5.6 L Albumin 2.8 L Albumin/Globulin Ratio Procalcitonin Urine Appearance Urine Protein Urine Nitrate Urine Urobilinogen Ur Leukocyte Esterase Urine RBC Urine WBC Urine Bacteria Urine Mucus 12/25/21 14:09 RBC Hgb Hct MCV MCH MCHC RDW Immature Gran % (Auto) Lymph % (Auto) Crisp % (Auto) Lymph # (Auto) Crisp # (Auto) Immature Gran # Sodium 129 L Potassium 3.2 L Chloride 94 L Creatinine 0.4 L Glucose 167 H Uric Acid Calcium 7.0 L Phosphorus 2.1 L Magnesium Lactate Dehydrogenase Total Protein Albumin 3.0 L Albumin/Globulin Ratio Procalcitonin Urine Appearance Urine Protein Urine Nitrate Urine Urobilinogen Ur Leukocyte Esterase Urine RBC Urine WBC Urine Bacteria Urine Mucus Meds: Medications Acetaminophen (Acetaminophen 325 Mg Tablet) 650 mg PO Q6HP PRN; Protocol PRN Reason: Per Pain Protocol/Fever > 101 Last Admin: 12/26/21 21:00 Dose: 650 mg Albuterol/Ipratropium (Ipratropium/Albuterol 3 Ml Ampul.Neb) 3 ml NEB Q4HP PRN PRN Reason: Shortness Of Breath Last Admin: 12/26/21 09:11 Dose: 3 ml Benzonatate (Benzonatate 100 Mg Capsule) 200 mg PO TIDP PRN PRN Reason: Cough Last Admin: 12/26/21 20:59 Dose: 200 mg Diltiazem HCl (Diltiazem 240 Mg Cap.Xl.24h) 240 mg PO [facility] Last Admin: 12/27/21 20:42 Dose: 240 mg Docusate Sodium (Docusate Sodium 100 Mg Capsule) 100 mg PO BID [facility] Last Admin: 12/27/21 20:42 Dose: 100 mg Enoxaparin Sodium (Enoxaparin 40 Mg/0.4 Ml Syringe) 40 mg SQ DAILY [facility] Last Admin: 12/27/21 09:27 Dose: 40 mg Heparin Sodium (Porcine) (Heparin Flush 10 Units/Ml 5 Ml Syringe) 2 ml IV Q12 [facility] Last Admin: 12/27/21 20:42 Dose: Not Given Hydroxyzine HCl (Hydroxyzine 10 Mg Tablet) 50 mg PO HSP PRN PRN Reason: ANXIETY/SEDATION Piperacillin Sod/Tazobactam (Sod 3.375 gm/ Dextrose) 50 mls @ 100 mls/hr IV Q8H [facility]; Protocol Last Infusion: 12/28/21 05:43 Dose: Infused Vancomycin HCl 1,500 mg/ (Sodium Chloride) 500 mls @ 333.3 mls/hr IV Q24H [facility] Last Infusion: 12/27/21 15:21 Dose: Infused Latanoprost (Latanoprost Ophth Drops 2.5ml Bottle) 1 gtt OU [facility] Last Admin: 12/27/21 20:43 Dose: 1 gtt Levothyroxine Sodium (Levothyroxine 50 Mcg Tablet) 50 mcg PO ACB [facility] Last Admin: 12/27/21 07:16 Dose: 50 mcg Lorazepam (Lorazepam 2 Mg/Ml Vial) 0.5 mg IV Q6HP PRN PRN Reason: ANXIETY/SEDATION Last Admin: 12/27/21 20:41 Dose: 0.5 mg Melatonin (Melatonin 3 Mg Tablet) 3 mg PO [facility] Last Admin: 12/27/21 20:41 Dose: 3 mg Ondansetron HCl (Ondansetron 4 Mg/2 Ml Vial) 4 mg IV Q4HP PRN PRN Reason: Nausea And Vomiting Polyethylene Glycol (Polyethylene Glycol 3350 17 Gm Packet) 17 gm PO DAILYP PRN PRN Reason: Constipation Last Admin: 12/25/21 08:32 Dose: 17 gm Senna (Sennosides 1 Tablet) 2 tab PO DAILYP PRN PRN Reason: Constipation Sodium Chloride (0.9 % Sodium Chloride 10 Ml Syringe) 10 ml IV Q8 [facility] Last Admin: 12/27/21 20:42 Dose: 10 ml Sodium Chloride (0.9 % Sodium Chloride 10 Ml Syringe) 10 ml IV Q12 [facility] Last Admin: 12/27/21 20:42 Dose: Not Given Sodium Chloride (Sodium Chloride 1 Gm Tablet) 1 gm PO QID [facility] Last Admin: 12/27/21 20:41 Dose: 1 gm Timolol Maleate (Timolol 0.5% Ophth Drops Bottle 5ml) 1 gtt OU HS [facility] Last Admin: 12/27/21 20:43 Dose: 1 gtt Vancomycin HCl (Vancomycin Per Pharmacy) 1 order IV UD [facility]; Protocol A/P Narrative A/P Narrative: A: *Hyponatremia, severe, 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 resolved *COVID PNA vs Bacterial PNA: -finished paxlovid 12/21 *Acute hypoxic respite failure: 2/2 above -on 1LNC *Leukopenia: likely viral from covid. resolved *Thrombocytopenia: suspect from viral infection. resolved *HTN: *Hypothyroidism: TSH *Dysphagia: P: -Nephrology signing off, fluid restrict, salt tabs -monitor sodium -Empiric antibiotics, pct low, mrsa screen neg, d/c vanco, d/c zosyn soon -IV lasix for volume overload, good response yesterday, f/u cxr -wean off O2 -d/c'd home HCTZ -Replete electrolytes -cont home dilt/arb -PT/OT -Dysphagia diet per ST -ppx: Lovenox Full code Time Spent With Patient Time: Total time spent is greater than 50% in coordination of care (as documented) at patient's floor/unit and/or counseling patient: Total time spent with greater than 50% in coordination of care (as documented) at patient's floor/unit and/or counseling patient:: 25 - 35 minutes QUALITY VTE Deep Vein Thrombosis/Pulmonary Embolism Present on Admission: No
[2021-12-28] MEDS ORDERED: ALBUMIN HUMAN 12.5 GM/50 ML BAG IV SCH (08:15)
[2021-12-28] MEDS ORDERED: FUROSEMIDE 40 MG/4 ML VIAL IV SCH (08:15)
[2021-12-28] MEDS: 0.9 % SODIUM CHLORIDE 10 ML SYRINGE IV SCH ×5 (08:31→20:51)
[2021-12-28] MEDS: LEVOTHYROXINE 50 MCG TABLET PO SCH (08:31)
[2021-12-28] MEDS: ENOXAPARIN 40 MG/0.4 ML SYRINGE SQ SCH (09:02)
[2021-12-28] MEDS: SODIUM CHLORIDE 1 GM TABLET PO SCH ×4 (09:02→20:50)
[2021-12-28] MEDS: DOCUSATE SODIUM 100 MG CAPSULE PO SCH ×2 (09:02→20:50)
--- NOTE | 2021-12-28 13:03 | Discharge Summary ---
Discharge Provider Provider IMPORTANT FOLLOW-UP INFORMATION FOR PCP: Patient information: Note initiated : 12/28/21 at 1:01 pm Service Date, if different from initiated Date: [] Patient: Amna Wei a 81 y/o F admitted on 12/19/21 for weakness/COVID+. Chief Complaint: [] Date of admission: 12/19/21 10:00 Discharge date: 12/29/21 Primary care physician: Gerson Cuenca Consults: 12/19/21 Consult to Physician [CONS] Stat Comment: Consulting Provider: Hernandez Nelson Reason For Exam: Physician to Consult 12/19/21 13:43 Consult to Physician [CONS] Routine Comment: Consulting Provider: Jw Escamilla Reason For Exam: Physician to Consult COURSE Hospital Course Hospital course: Interval history: History of present illness: Ms. Wei is a 81 year old F Presents ED with increasing weakness poor appetite. Patient not eating and drinking very well. Per family she also has some very mild confusion more so is lethargic and drowsy.. Extremely weak she could not get out of bed. Patient diagnosed with COVID several days ago and was prescribed Paxilovid. Chest x-ray in the ED unremarkable. CT showed age-related degenerative changes in the brain. In the ED she was found found to have a potassium of 2.6 and sodium 105 with a hypochloridemia as well. Leukopenia mild thrombocytopenia. Lactic acid unremarkable. Potential culprit medications for hyponatremia could be the hydrochlorothiazide she is on She denies any nausea vomiting or diarrhea. No chest pain. She has a very mild nonproductive cough but denies shortness of breath. She appeared to be dry on a presentation was given IV fluid boluses in the ED. 12/20: Serum sodium initially improved to 109 yesterday evening, but this morning went back down to 105. Serum potassium improved to 3.7. On room air. Patient is c/o general weakness. Denies shortness of breath. c/o cough, denies wheezing. Denies fever, chills, or sweating. As per financial assistant recs: 1200cc/day fluid restriction NaCl 2gm PO x1 Sodium phosphate 250mg PO QID Serum sodium q2hr Goal of correction: <8mEq/24 hours Goal serum sodium level >130 12/21: Serum sodium 110, potassium 2.9 this morning. Nursing has noticed swallowing difficulties. Patient denies any chest pain or palpitations. She denies any muscle cramps or muscle weakness. She denies any confusions or lethargy's. She is still complain of general weakness. 1200cc/day fluid restriction Sodium phosphate 500mg PO QID Sodium bicarbonate 650mg PO TID 3% sodium chloride 500ml @15cc/hr K rider 20mEq IV once Potassium chloride 40mEq PO BID Serum sodium q4hr Last day of Paxlovid therapy. Physical therapy Occupational Therapy and speech therapy evaluation and treatments. 12/22: Patient is on 2 L/min of oxygen. A large amount of phlegm was being sucked out earlier by RT. Sodium level 115, potassium level 3.5. Patient is c/o general weakness. Denies shortness of breath. c/o cough, denies wheezing. Denies fever, chills, or sweating. 1200cc/day fluid restriction Potassium phosphate 40mEq in sodium chloride infusing at 63ml/hr Serum sodium q4hr Physical therapy, occupational therapy, and speech therapy evaluations and treatments 12/23: Patient is currently on room air. She has been evaluated by speech therapist and currently on dysphagia diet. Last sodium level from earlier was 119, potassium level pending. Patient states her strength has improved. Denies chest pain or palpitation. Denies shortness of breath. Denies fever, chills, or sweating. 1200cc/day fluid restriction 3% saline infusing at 15cc/hr KCL 40mEq PO BID Sodium q4hr Continue to work with Dr. Escamilla for electrolyte management, recs. appreciated Physical therapy, occupational therapy evaluations and treatments 12/24: Serum sodium 117 this morning, potassium 3.4. She is on 2L/min oxygen. Fever with Tmax 38.4 overnight. Patient states her strength has improved. Denies chest pain or palpitation. Denies shortness of breath. Denies fever, chills, or sweating. Good appetite. 1200cc/day fluid restriction 3% saline infusing at 15cc/hr Sodium q4hr Badgqc-Gwzt-P 500mg PO QID Goal serum sodium level: 122-125 Continue to touch base with PT OT regarding placement. Chest X ray Blood cultures 12/25: Low grade fever Tmax 37.3 overnight. On 2L/min oxygen. Sodium/potassium/magnesium 125/2.6/1.6, respectively. Blood cultures no growth to date. Patient states her strength has improved. Denies chest pain or palpitation. Denies shortness of breath. Denies fever, chills, or sweating. Good appetite. 1200cc/day fluid restriction 3% saline infusing at 15cc/hr KCl 40mEq IV once KCl 20mEq PO TID d/c Vwprxf-Vobf-U 500mg PO QID Repeat chemistry panel and Mg this PM Goal of sodium: 126-130 12/26: Fever T-max 38.6 overnight. Currently on 2 L/min of oxygen. Morning labs pending today. Patient's denies any shortness of breath. She denies any cough or sputum productions or wheezings although nursing staff reported that she did have cough with sputum productions. She denies any subjective fever or chills or diaphoresis. She has good energy level. We will collect sputum culture and will start the patient's on broad-spectrum antibiotics coverage vancomycin and Zosyn to cover for any secondary bacterial pneumonia. Blood culture pending and no growth. 1200cc/day fluid restriction KCl 20mEq PO TID NaCl 2gm PO QID MgO 400mg PO BID Goal sodium 126-130 12/27 Patient still on oxygen. Was able to titrate to room air yesterday afternoon for a while but then overnight needed oxygen. Chest x-ray shows effusions and bilateral infiltrates appear to be increasing. 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 No leukocytosis on that day's labs. Hyponatremia today noted. Phos and mag better today. Patient has mild cough. Denies shortness of breath. 12/28 IV diuresis today for volume overload with good results and will give today as well. Patient overall feels much better. Sodium still low at 131 but stable. No new complaints. Follow-up chest x-ray after diuresis 12/29 Patient feeling better today. On room air while awake and seems only needs oxygen while she is sleeping. Event or new complaints. Awaiting follow-up cxr. Sodium mildly low but stable. 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 resolved *COVID PNA vs Bacterial PNA: -finished paxlovid 12/21 *Acute hypoxic respite failure: 2/2 above -on 1LNC *UTI (e.coli): *Leukopenia: likely viral from covid. resolved *Thrombocytopenia: suspect from viral infection. resolved *HTN: *Hypothyroidism: TSH *Dysphagia: P: -echo pending -d/c'd home HCTZ -Dysphagia diet per ST Discharge diagnosis: Hyponatremia like other electrolyte dispense balance volume overload acidos Secondary discharge diagnosis: Encephalopathy COVID-pneumonia versus bacterial pneumonia acute Evoxac respite failure leukopenia thrombocytopenia hypertension hypothyroidism dysphagia Time Spent with Patient Time attestation: Total time spent providing and/or coordinating discharge services: Time spent: Greater than 30 minutes EXAM Constitutional Vitals: Temp Pulse Resp BP Pulse Ox O2 Del Method O2 Flow Rate 98.4 F 86 18 130/75 93 2 12/28/21 12:01 12/28/21 12:01 12/28/21 12:01 12/28/21 12:01 12/28/21 12:01 12/28/21 12:01 12/28/21 12:01 Discharge Data Data Completed and Pending Labs on day of discharge: Labs from last 24 hours 12/28/21 12/28/21 12/28/21 11:30 08:10 05:08 Sodium 131 L Potassium 3.7 Chloride 92 L Carbon Dioxide 25 Anion Gap 14.0 BUN 11 Creatinine 0.6 GFR Calculation 86 Glucose 103 Uric Acid 1.4 L Calcium 8.6 Phosphorus 4.2 Magnesium 1.8 Total Bilirubin 0.6 Direct Bilirubin < 0.2 GGT 15 AST 26 ALT 17 Alkaline Phosphatase 62 Lactate Dehydrogenase 368 H NT-Pro-B Natriuret Pep 1157.0 H Total Protein 6.2 Albumin 3.0 L Globulin 3.2 Albumin/Globulin Ratio 0.9 L Triglycerides 77 Vancomycin Trough 7.5 Preliminary micro results at discharge 12/24/21 09:15 Blood Culture - Preliminary Blood 12/24/21 08:40 Blood Culture - Preliminary Blood 12/26/21 10:45 Gram Stain - Preliminary Sputum source - Induced Sputum Culture - Preliminary 12/26/21 09:21 Urine Culture - Preliminary Urine - Marquez Gram negative bacillus Discharge Plan Patient/Caregiver Discharge Instructions Activity: increase activity as tolerated Diet: Dysphagia Level 6 Soft & Bite-Sized Foods Activity Restrictions/Additional Instructions: Referral to pulmonology in 1 to 2 weeks for possible need for sleep study given nocturnal hypoxia in the hospital. Prescriptions: New sodium chloride 1,000 mg Tablet,Soluble 1 mg PO BID Qty: 60 0RF Continued potassium chloride 10 mEq tablet,ER particles/crystals 10 meq PO QDAY Qty: 90 3RF levothyroxine 50 mcg tablet 50 mcg PO QDAY Qty: 90 3RF calcium carbonate-vitamin D3 1 EACH tablet 1 tab PO DAILY latanoprost 0.005 % drops 1 drp OPHTHALMIC (EYE) QHS Label Comments: [NO ORIGINAL SIG] diltiazem HCl 240 mg capsule,extended release 24 hr 240 mg PO QHS timolol maleate 0.5 % drops 1 drp OPHTHALMIC (EYE) HS Label Comments: [NO ORIGINAL SIG] Changed benzonatate 200 mg Capsule 200 mg PO TID PRN (Reason: cough) Qty: 1 0RF Discontinued losartan-hydrochlorothiazide 100-12.5 mg tablet 1 tab PO QDAY Other Ambulatory Orders: Basic Metabolic Panel (Routine) Timeframe: 3 Days Facility: - Location: Laboratory Ordered By: Hernandez Nelson Follow Up Plan Follow up with: Gerson Cuenca MD [Primary Care Provider] - Patient Disposition: Xfer SNF Prognosis: Fair Rehab Potential: Fair I certify that the patient requires SNF services: Yes Overall status at discharge: patient is progressing back to baseline Discharge Orders: Discharge Order (Routine); Ordered 12/29/21 Ordered By: Hernandez Nelson QUALITY VTE Deep Vein Thrombosis/Pulmonary Embolism Present on Admission: No
[2021-12-28] MEDS: LATANOPROST OPHTH DROPS 2.5ML BOTTLE OU SCH (20:50)
[2021-12-28] MEDS: DILTIAZEM 240 MG CAP.XL.24H PO SCH (20:50)
[2021-12-28] MEDS: TIMOLOL 0.5% OPHTH DROPS BOTTLE 5ML OU SCH (20:50)
[2021-12-28] MEDS: MELATONIN 3 MG TABLET PO SCH (20:50)
[2021-12-28] MEDS: LORazepam 2 MG/ML VIAL IV PRN (20:51)
[2021-12-29] MEDS: 0.9 % SODIUM CHLORIDE 10 ML SYRINGE IV SCH ×2 (05:42→07:57)
[2021-12-29] MEDS: PIPERACILLIN SODIUM/TAZOBACTAM 3.375 GM in DEXTROSE 5% IN WATER 50 ML IV SCH (05:42)
--- NOTE | 2021-12-29 07:35 | Internal Med Progress Note ---
SUBJECTIVE Subjective Patient information: Note initiated : 12/29/21 at 7:32 am Service Date, if different from initiated Date: [] Patient: Amna Wei a 81 y/o F admitted on 12/19/21 for weakness/COVID+. Chief Complaint: [] Interval history: History of present illness: Ms. Wei is a 81 year old F Presents ED with increasing weakness poor appetite. Patient not eating and drinking very well. Per family she also has some very mild confusion more so is lethargic and drowsy.. Extremely weak she could not get out of bed. Patient diagnosed with COVID several days ago and was prescribed Paxilovid. Chest x-ray in the ED unremarkable. CT showed age-related degenerative changes in the brain. In the ED she was found found to have a potassium of 2.6 and sodium 105 with a hypochloridemia as well. Leukopenia mild thrombocytopenia. Lactic acid unremarkable. Potential culprit medications for hyponatremia could be the hydrochlorothiazide she is on She denies any nausea vomiting or diarrhea. No chest pain. She has a very mild nonproductive cough but denies shortness of breath. She appeared to be dry on a presentation was given IV fluid boluses in the ED. 12/20: Serum sodium initially improved to 109 yesterday evening, but this morning went back down to 105. Serum potassium improved to 3.7. On room air. Patient is c/o general weakness. Denies shortness of breath. c/o cough, denies wheezing. Denies fever, chills, or sweating. As per day care aide recs: 1200cc/day fluid restriction NaCl 2gm PO x1 Sodium phosphate 250mg PO QID Serum sodium q2hr Goal of correction: <8mEq/24 hours Goal serum sodium level >130 12/21: Serum sodium 110, potassium 2.9 this morning. Nursing has noticed swallowing difficulties. Patient denies any chest pain or palpitations. She denies any muscle cramps or muscle weakness. She denies any confusions or lethargy's. She is still complain of general weakness. 1200cc/day fluid restriction Sodium phosphate 500mg PO QID Sodium bicarbonate 650mg PO TID 3% sodium chloride 500ml @15cc/hr K rider 20mEq IV once Potassium chloride 40mEq PO BID Serum sodium q4hr Last day of Paxlovid therapy. Physical therapy Occupational Therapy and speech therapy evaluation and treatments. 12/22: Patient is on 2 L/min of oxygen. A large amount of phlegm was being sucked out earlier by RT. Sodium level 115, potassium level 3.5. Patient is c/o general weakness. Denies shortness of breath. c/o cough, denies wheezing. Denies fever, chills, or sweating. 1200cc/day fluid restriction Potassium phosphate 40mEq in sodium chloride infusing at 63ml/hr Serum sodium q4hr Physical therapy, occupational therapy, and speech therapy evaluations and treatments 12/23: Patient is currently on room air. She has been evaluated by speech therapist and currently on dysphagia diet. Last sodium level from earlier was 119, pot assium level pending. Patient states her strength has improved. Denies chest pain or palpitation. Denies shortness of breath. Denies fever, chills, or sweating. 1200cc/day fluid restriction 3% saline infusing at 15cc/hr KCL 40mEq PO BID Sodium q4hr Continue to work with Dr. Escamilla for electrolyte management, recs. appreciated Physical therapy, occupational therapy evaluations and treatments 12/24: Serum sodium 117 this morning, potassium 3.4. She is on 2L/min oxygen. Fever with Tmax 38.4 overnight. Patient states her strength has improved. Denies chest pain or palpitation. Denies shortness of breath. Denies fever, chills, or sweating. Good appetite. 1200cc/day fluid restriction 3% saline infusing at 15cc/hr Sodium q4hr Vapvqv-Mjdh-K 500mg PO QID Goal serum sodium level: 122-125 Continue to touch base with PT OT regarding placement. Chest X ray Blood cultures 12/25: Low grade fever Tmax 37.3 overnight. On 2L/min oxygen. Sodium/potassium/magnesium 125/2.6/1.6, respectively. Blood cultures no growth to date. Patient states her strength has improved. Denies chest pain or palpitation. Denies shortness of breath. Denies fever, chills, or sweating. Good appetite. 1200cc/day fluid restriction 3% saline infusing at 15cc/hr KCl 40mEq IV once KCl 20mEq PO TID d/c Pwnopx-Rjya-G 500mg PO QID Repeat chemistry panel and Mg this PM Goal of sodium: 126-130 12/26: Fever T-max 38.6 overnight. Currently on 2 L/min of oxygen. Morning labs pending today. Patient's denies any shortness of breath. She denies any cough or sputum productions or wheezings although nursing staff reported that she did have cough with sputum productions. She denies any subjective fever or chills or diaphoresis. She has good energy level. We will collect sputum culture and will start the patient's on broad-spectrum antibiotics coverage vancomycin and Zosyn to cover for any secondary bacterial pneumonia. Blood culture pending and no growth. 1200cc/day fluid restriction KCl 20mEq PO TID NaCl 2gm PO QID MgO 400mg PO BID Goal sodium 126-130 12/27 Patient still on oxygen. Was able to titrate to room air yesterday afternoon for a while but then overnight needed oxygen. Chest x-ray shows effusions and b ilateral infiltrates appear to be increasing. 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 No leukocytosis on that day's labs. Hyponatremia today noted. Phos and mag better today. Patient has mild cough. Denies shortness of breath. 12/28 IV diuresis today for volume overload with good results and will give today as well. Patient overall feels much better. Sodium still low at 131 but stable. No new complaints. Follow-up chest x-ray after diuresis 12/29 Patient feeling better today. On room air while awake and seems only needs oxygen while she is sleeping. Event or new complaints. Awaiting follow-up cxr. Sodium mildly low but stable. Review of Systems:. denies headache/fever/chills/nausea/vomiting/chest or abdominal pain/diarrhea. Otherwise see above. Constitutional Vitals: Vital Signs Temp Pulse Resp BP Pulse Ox O2 Del Method O2 Flow Rate 97.8 F 77 19 109/53 90 3 12/29/21 01:26 12/29/21 04:43 12/29/21 06:13 12/29/21 04:43 12/29/21 06:13 12/29/21 01:26 12/29/21 01:26 Period Temp Pulse Resp BP Sys/Kern Pulse Ox O2 Del Method O2 Flow Rate Last 24 Hr 97.7 F-99 F 72-99 13-35 109-148/53-81 89-100 Nasal Cannula- Room Air 1.5-3 Intake and Output 12/28/21 12/29/21 12/29/21 21:59 05:59 13:59 Intake Total 1040 250 50 Output Total 450 775 Balance 590 -525 50 Weight 77.621 kg Intake & Output: Intake & Output 12/28/21 12/29/21 12/29/21 21:59 05:59 13:59 Intake Total 1040 250 50 Output Total 450 775 Balance 590 -525 50 Weight 77.621 kg Intake: Nourishment/Supplement quantity 240 (ml) IV 100 50 Zosyn 3.375 gm In Dextrose 5% 100 50 in Water 50 ml @ 100 mls/hr IV Q8H [facility] Rx#:[id number] Oral 700 250 Output: Urine Catheter Amount 450 775 Other: Nourishment/Supplement name ensure Urine Appearance Clear Clear Marquez Clear Clear Urine Color Yellow Yellow Marquez Yellow Yellow Stool Size Small Stool Color Brown Stool Consistency Soft Formed # Bowel Movements 1 Exam: General: Alert, awake, No acute Distress Eyes/N/T: EOMI, Head/Neck: neck supple, CV: RRR, No murmurs, Pulm: minimal b/l rales, no wheezing Abd: soft, nontender, +BS x4 Ext: no clubbing/cyanosis, mild nonpitting edema Neuro: Alert, awake, no focal deficits, moves all extremities. Skin: warm/dry OBJ DATA Labs CBC & Chem 7: 12/26/21 06:13 12/29/21 06:15 Labs: Abnormal Lab Results 12/28/21 12/28/21 12/27/21 11:30 05:08 04:53 RBC Hgb Hct MCV MCH MCHC RDW Immature Gran % (Auto) Lymph % (Auto) [place] % (Auto) Lymph # (Auto) [place] # (Auto) Immature Gran # Sodium 131 L Chloride 92 L Creatinine Glucose Uric Acid 1.4 L Calcium Phosphorus Magnesium Lactate Dehydrogenase 368 H NT-Pro-B Natriuret Pep 1157.0 H Total Protein Albumin 3.0 L Albumin/Globulin Ratio 0.9 L Procalcitonin 0.13 H Urine Appearance Urine Protein Urine Nitrate Urine Urobilinogen Ur Leukocyte Esterase Urine RBC Urine WBC Urine Bacteria Urine Mucus 12/27/21 12/26/21 12/26/21 04:53 14:54 14:54 RBC Hgb Hct MCV MCH MCHC RDW Immature Gran % (Auto) Lymph % (Auto) [place] % (Auto) Lymph # (Auto) [place] # (Auto) Immature Gran # Sodium 130 L 132 L Chloride 94 L Creatinine 0.3 L 0.4 L Glucose 159 H Uric Acid 0.7 L Calcium 8.0 L 7.7 L Phosphorus 1.9 L Magnesium 1.4 L Lactate Dehydrogenase 324 H NT-Pro-B Natriuret Pep Total Protein 5.4 L Albumin 3.1 L Albumin/Globulin Ratio Procalcitonin Urine Appearance Urine Protein Urine Nitrate Urine Urobilinogen Ur Leukocyte Esterase Urine RBC Urine WBC Urine Bacteria Urine Mucus 12/26/21 12/26/21 12/26/21 09:21 06:13 06:13 RBC 2.63 L Hgb 9.7 L Hct 26.9 L MCV 102.3 H MCH 36.9 H MCHC 36.1 H RDW 19.5 H Immature Gran % (Auto) 5.2 H Lymph % (Auto) 14.1 L Refugio % (Auto) 40.6 H Lymph # (Auto) 0.96 L [place] # (Auto) 2.76 H Immature Gran # 0.35 H Sodium 129 L Chloride 95 L Creatinine 0.3 L Glucose Uric Acid Calcium 7.7 L Phosphorus 2.4 L Magnesium 1.5 L Lactate Dehydrogenase NT-Pro-B Natriuret Pep Total Protein 5.6 L Albumin 2.8 L Albumin/Globulin Ratio Procalcitonin Urine Appearance Cloudy A Urine Protein 100 A Urine Nitrate Pos A Urine Urobilinogen 4.0 A Ur Leukocyte Esterase 250 A Urine RBC 23 H Urine WBC > 182 H Urine Bacteria Few A Urine Mucus Many A Meds: Medications Acetaminophen (Acetaminophen 325 Mg Tablet) 650 mg PO Q6HP PRN; Protocol PRN Reason: Per Pain Protocol/Fever > 101 Last Admin: 12/26/21 21:00 Dose: 650 mg Albuterol/Ipratropium (Ipratropium/Albuterol 3 Ml Ampul.Neb) 3 ml NEB Q4HP PRN PRN Reason: Shortness Of Breath Last Admin: 12/26/21 09:11 Dose: 3 ml Benzonatate (Benzonatate 100 Mg Capsule) 200 mg PO TIDP PRN PRN Reason: Cough Last Admin: 12/26/21 20:59 Dose: 200 mg Diltiazem HCl (Diltiazem 240 Mg Cap.Xl.24h) 240 mg PO HS [facility] Last Admin: 12/28/21 20:50 Dose: 240 mg Docusate Sodium (Docusate Sodium 100 Mg Capsule) 100 mg PO BID [facility] Last Admin: 12/28/21 20:50 Dose: 100 mg Enoxaparin Sodium (Enoxaparin 40 Mg/0.4 Ml Syringe) 40 mg SQ DAILY [facility] Last Admin: 12/28/21 09:02 Dose: 40 mg Heparin Sodium (Porcine) (Heparin Flush 10 Units/Ml 5 Ml Syringe) 2 ml IV Q12 [facility] Last Admin: 12/28/21 20:50 Dose: Not Given Hydroxyzine HCl (Hydroxyzine 10 Mg Tablet) 50 mg PO HSP PRN PRN Reason: ANXIETY/SEDATION Piperacillin Sod/Tazobactam (Sod 3.375 gm/ Dextrose) 50 mls @ 100 mls/hr IV Q8H [facility]; Protocol Last Infusion: 12/29/21 06:33 Dose: Infused Latanoprost (Latanoprost Ophth Drops 2.5ml Bottle) 1 gtt OU HS [facility] Last Admin: 12/28/21 20:50 Dose: 1 gtt Levothyroxine Sodium (Levothyroxine 50 Mcg Tablet) 50 mcg PO ACB [facility] Last Admin: 12/28/21 08:31 Dose: 50 mcg Lorazepam (Lorazepam 2 Mg/Ml Vial) 0.5 mg IV Q6HP PRN PRN Reason: ANXIETY/SEDATION Last Admin: 12/28/21 20:51 Dose: 0.5 mg Melatonin (Melatonin 3 Mg Tablet) 3 mg PO [facility] Last Admin: 12/28/21 20:50 Dose: Not Given Ondansetron HCl (Ondansetron 4 Mg/2 Ml Vial) 4 mg IV Q4HP PRN PRN Reason: Nausea And Vomiting Polyethylene Glycol (Polyethylene Glycol 3350 17 Gm Packet) 17 gm PO DAILYP PRN PRN Reason: Constipation Last Admin: 12/25/21 08:32 Dose: 17 gm Senna (Sennosides 1 Tablet) 2 tab PO DAILYP PRN PRN Reason: Constipation Sodium Chloride (0.9 % Sodium Chloride 10 Ml Syringe) 10 ml IV Q8 [facility] Last Admin: 12/29/21 05:42 Dose: 10 ml Sodium Chloride (0.9 % Sodium Chloride 10 Ml Syringe) 10 ml IV Q12 [facility] Last Admin: 12/28/21 20:51 Dose: Not Given Sodium Chloride (Sodium Chloride 1 Gm Tablet) 1 gm PO QID [facility] Last Admin: 12/28/21 20:50 Dose: 1 gm Timolol Maleate (Timolol 0.5% Ophth Drops Bottle 5ml) 1 gtt OU HS [facility] Last Admin: 12/28/21 20:50 Dose: 1 gtt A/P Narrative A/P Narrative: A: *Hyponatremia, severe, acute on chronic: 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 resolved *COVID PNA vs Bacterial PNA: -finished paxlovid 12/21 *Acute hypoxic respite failure: 2/2 above -on room air while awake, seem to only need while sleeping *Leukopenia: likely viral from covid. resolved *Thrombocytopenia: suspect from viral infection. resolved *HTN: *Hypothyroidism: TSH *Dysphagia: P: -Nephrology signed off, fluid restrict, salt tabs -monitor sodium -Empiric antibiotics, pct low, mrsa screen neg, d/c vanco, d/c zosyn -s/p IV diuresis, prn lasix, echo pending, f/u cxr -wean off O2 -d/c'd home HCTZ -Replete electrolytes -cont home dilt/arb -PT/OT -Dysphagia diet per ST -f/u pulmonology for possible sleep study -ppx: Lovenox Full code Time Spent With Patient Time: Total time spent is greater than 50% in coordination of care (as documented) at patient's floor/unit and/or counseling patient: QUALITY VTE Deep Vein Thrombosis/Pulmonary Embolism Present on Admission: No
[2021-12-29] MEDS: SODIUM CHLORIDE 1 GM TABLET PO SCH ×2 (07:57→12:51)
[2021-12-29] MEDS: DOCUSATE SODIUM 100 MG CAPSULE PO SCH (07:57)
[2021-12-29] MEDS: LEVOTHYROXINE 50 MCG TABLET PO SCH (07:57)
[2021-12-29] MEDS: ENOXAPARIN 40 MG/0.4 ML SYRINGE SQ SCH (07:57)
[2021-12-29 08:35] LABS: Blood Urea Nitrogen 17 mg/dL (8-23); Calcium 8.8 mg/dL (8.6-10.4); Carbon Dioxide 28 mmol/L (22-30); Chloride 91 mmol/L (96-108); Glomerular Filtration Rate 86; Glucose 100 mg/dL (70-105)
--- NOTE | 2021-12-29 09:41 | XRay Report ---
INDICATION: f/u s/p diuresis TECHNIQUE: AP portable upright chest x-ray COMPARISON: Previous chest x-rays dated 12/27/2021, 12/24/2021, 12/19/2021 FINDINGS: Lungs:Mild bibasilar pulmonary parenchymal density consistent with volume loss. Pneumonia is possible. Mid and upper lungs are negative Heart, vascular:No significant cardiomegaly. Vascularity is within normal limits. Mediastinum, peter:No mediastinal widening. No hilar mass Pleura:Bilateral small to moderate pleural effusions. These are new since 12/19/2021 and have increased in size since 12/27/2021 Skeletal:Negative. IMPRESSION: 1. Bilateral pleural effusions, new since 12/19/2021 2. Mild bibasilar atelectasis or infiltrate Interpreted and Authenticated by: Jeremie Lawson 12/29/21
[2022-01-25] MEDS ORDERED: MELATONIN 3 MG TABLET PO SCH (22:00)
== END 2021-12-29 14:10 | DRG 177 ==
LOC: ED 05:42 → ICU 10:00
PROVIDERS: ADMIT Internal Medicine; ATTEND Internal Medicine

== ENCOUNTER 2024-08-31 09:40 | Inpatient (IN) ==
[2024-08-31] MEDS ORDERED: IOPAMIDOL 100 ML BOTTLE IV ONE (09:41)
[2024-08-31] MEDS: FUROSEMIDE 40 MG/4 ML VIAL IV ONE (10:45)
[2024-08-31 11:11] LABS: ALT/SGPT 18 U/L (<40); AST/SGOT 23 U/L (<32); Albumin 3.9 gm/dL (3.2-5.2); Albumin/Globulin Ratio 1.6 (1.0-2.3); Alkaline Phosphatase 87 U/L (39-117); Bilirubin,Total 0.5 mg/dL (0.1-1.0); Blood Urea Nitrogen 12 mg/dL (8-23); Carbon Dioxide 24 mmol/L (22-30); Chloride 93 mmol/L (96-108); Globulin 2.5 gm/dL (2.2-3.7); Glomerular Filtration Rate 85; Glucose 93 mg/dL (70-105); Potassium 3.5 mmol/L (3.3-5.1); Sodium 130 mmol/L (133-145)
[2024-08-31 11:31] LABS: Basophils # (Auto) 0.11 K/mcL (0.00-0.30); Eosinophils # (Auto) 0.01 K/mcL (0.00-0.70); Eosinophils % (Auto) 0.2 % (0.0-7.0); Hematocrit 36.4 % (34.1-44.9); Hemoglobin 11.4 g/dL (11.2-15.7); Lymphocytes % (Auto) 25.2 % (15.5-49.0); Mean Cell Volume 105.2 fL (80.0-100.0); Mean Corpuscular HGB Conc 31.3 g/dL (31.0-36.0); Mean Platelet Volume 10.2 fL (8.8-12.5); Monocytes # (Auto) 1.61 K/mcL (0.10-0.90); Neutrophils % (Auto) 42.7 % (38.0-78.0); Platelet Count 116 K/mcL (140-440); RBC 3.46 M/mcL (3.59-5.38); Red Cell Distribution Width 19.6 % (11.5-14.5); WBC 5.6 K/mcL (4.5-11.0)
[2024-08-31] MEDS ORDERED: ACETAMINOPHEN 325 MG TABLET PO PRN (13:52)
[2024-08-31] MEDS ORDERED: IPRATROPIUM/ALBUTEROL 3 ML AMPUL.NEB NEB PRN (13:52)
[2024-08-31] MEDS ORDERED: LACTULOSE 20 GM/30 ML ORAL.SOL PO PRN (13:52)
[2024-08-31] MEDS ORDERED: ONDANSETRON 4 MG/2 ML VIAL IV PRN (13:52)
[2024-08-31] MEDS ORDERED: SENNOSIDES 1 TABLET PO PRN (13:52)
[2024-08-31 14:52] LABS: Partial Thromboplastin Time 30.5 sec (20.0-37.0); Prothrombin Time 14.3 sec (11.9-14.5)
[2024-08-31] MEDS: FUROSEMIDE 20 MG/2 ML VIAL IV SCH (17:18)
[2024-08-31] MEDS: 0.9 % SODIUM CHLORIDE 10 ML SYRINGE IV SCH (17:18)
[2024-08-31 17:49] LABS: pH,Body Fluid 7.59
[2024-08-31 17:59] LABS: Amylase,Pleural Fluid 14 U/L; Glucose,Pleural Fluid 100 mg/dL; LDH,Pleural Fluid 90 U/L (<122)
[2024-08-31] MEDS: DOCUSATE SODIUM 100 MG CAPSULE PO SCH (19:32)
[2024-08-31 19:47] LABS: Appearance,Pleural Fluid Clear; Color,Pleural Fluid P. Yellow; Lymphocytes,Pleural Fluid 44 %; Mesothelial,Pleural Fluid 5 %; Monocytes,Pleural Fluid 51 %; Neutrophils,Pleural Fluid 0 %; Nucleated Cells,Pleural Fld 672 /cumm; RBC,Pleural Fluid <50,000 /cumm
[2024-08-31] MEDS: APIXABAN 5 MG TABLET PO SCH (20:45)
[2024-08-31] MEDS: TIMOLOL 0.5% OPHTH DROPS BOTTLE 5ML OU SCH (20:46)
[2024-08-31] MEDS: LATANOPROST OPHTH DROPS 2.5ML BOTTLE OU SCH (20:47)
[2024-09-01 07:11] LABS: Basophils # (Auto) 0.14 K/mcL (0.00-0.30); Basophils % (Auto) 2.7 % (0.0-2.0); Eosinophils # (Auto) 0.02 K/mcL (0.00-0.70); Eosinophils % (Auto) 0.4 % (0.0-7.0); Hematocrit 33.9 % (34.1-44.9); Hemoglobin 11.1 g/dL (11.2-15.7); Lymphocytes # (Auto) 1.15 K/mcL (1.50-4.80); Lymphocytes % (Auto) 22.4 % (15.5-49.0); Mean Cell Volume 102.1 fL (80.0-100.0); Mean Corpuscular HGB Conc 32.7 g/dL (31.0-36.0); Mean Platelet Volume 10.3 fL (8.8-12.5); Monocytes # (Auto) 1.53 K/mcL (0.10-0.90); Monocytes % (Auto) 29.8 % (1.0-12.0); Neutrophils % (Auto) 43.7 % (38.0-78.0); Platelet Count 110 K/mcL (140-440); RBC 3.32 M/mcL (3.59-5.38); Red Cell Distribution Width 19.3 % (11.5-14.5); WBC 5.1 K/mcL (4.5-11.0)
[2024-09-01 07:47] LABS: ALT/SGPT 17 U/L (<40); AST/SGOT 21 U/L (<32); Albumin 3.7 gm/dL (3.2-5.2); Albumin/Globulin Ratio 1.7 (1.0-2.3); Alkaline Phosphatase 80 U/L (39-117); Bilirubin,Total 0.4 mg/dL (0.1-1.0); Blood Urea Nitrogen 10 mg/dL (8-23); Calcium 8.4 mg/dL (8.6-10.4); Carbon Dioxide 27 mmol/L (22-30); Chloride 89 mmol/L (96-108); Globulin 2.2 gm/dL (2.2-3.7); Glomerular Filtration Rate 85; Glucose 81 mg/dL (70-105); Potassium 2.8 mmol/L (3.3-5.1); Sodium 128 mmol/L (133-145)
[2024-09-01] MEDS: ZINC SULFATE 50 MG CAPSULE PO SCH (08:19)
[2024-09-01] MEDS: LOSARTAN 50 MG TABLET PO SCH (08:20)
[2024-09-01] MEDS: MAGNESIUM OXIDE 400 MG TABLET PO SCH (08:20)
[2024-09-01] MEDS ORDERED: OMEGA PO SCH (09:00)
[2024-09-01] MEDS ORDERED: GLUCOSAMINE CHONDROITIN PO SCH (09:00)
[2024-09-01] MEDS: LEVOTHYROXINE 75 MCG TABLET PO SCH (11:24)
[2024-09-01] MEDS: POTASSIUM CHLORIDE 40 MEQ in DEXTROSE 5% IN WATER 500 ML IV SCH (11:37)
[2024-09-01] MEDS ORDERED: DILTIAZEM 240 MG CAP.XL.24H PO PRN (21:00)
[2024-09-02 06:46] LABS: Basophils # (Auto) 0.07 K/mcL (0.00-0.30); Basophils % (Auto) 0.9 % (0.0-2.0); Eosinophils # (Auto) 0.02 K/mcL (0.00-0.70); Eosinophils % (Auto) 0.2 % (0.0-7.0); Hematocrit 34.7 % (34.1-44.9); Hemoglobin 11.4 g/dL (11.2-15.7); Lymphocytes # (Auto) 1.38 K/mcL (1.50-4.80); Lymphocytes % (Auto) 17.2 % (15.5-49.0); Mean Cell Volume 100.9 fL (80.0-100.0); Mean Corpuscular HGB Conc 32.9 g/dL (31.0-36.0); Monocytes # (Auto) 2.36 K/mcL (0.10-0.90); Monocytes % (Auto) 29.4 % (1.0-12.0); Neutrophils % (Auto) 51.3 % (38.0-78.0); Platelet Count 118 K/mcL (140-440); RBC 3.44 M/mcL (3.59-5.38); Red Cell Distribution Width 19.2 % (11.5-14.5)
[2024-09-02 06:59] LABS: ALT/SGPT 16 U/L (<40); AST/SGOT 21 U/L (<32); Albumin 3.5 gm/dL (3.2-5.2); Albumin/Globulin Ratio 1.6 (1.0-2.3); Alkaline Phosphatase 77 U/L (39-117); Bilirubin,Total 0.4 mg/dL (0.1-1.0); Blood Urea Nitrogen 11 mg/dL (8-23); Calcium 8.4 mg/dL (8.6-10.4); Carbon Dioxide 28 mmol/L (22-30); Chloride 91 mmol/L (96-108); Globulin 2.2 gm/dL (2.2-3.7); Glomerular Filtration Rate 85; Glucose 94 mg/dL (70-105); Potassium 3.4 mmol/L (3.3-5.1); Sodium 129 mmol/L (133-145)
[2024-09-02] MEDS: METOPROLOL TARTRATE 25 MG TABLET PO SCH (09:16)
[2024-09-02] MEDS: SPIRONOLACTONE 25 MG TABLET PO SCH (09:16)
[2024-09-02] MEDS: POTASSIUM CHLORIDE 20 MEQ TABLET PO SCH (09:16)
[2024-09-02] MEDS: FUROSEMIDE 20 MG TABLET PO SCH (16:33)
[2024-09-03 06:54] LABS: Basophils # (Auto) 0.11 K/mcL (0.00-0.30); Basophils % (Auto) 1.6 % (0.0-2.0); Eosinophils # (Auto) 0 K/mcL (0.00-0.70); Eosinophils % (Auto) 0 % (0.0-7.0); Hemoglobin 11.4 g/dL (11.2-15.7); Lymphocytes # (Auto) 1.64 K/mcL (1.50-4.80); Lymphocytes % (Auto) 24.2 % (15.5-49.0); Mean Cell Volume 102.6 fL (80.0-100.0); Mean Corpuscular HGB Conc 32.6 g/dL (31.0-36.0); Monocytes # (Auto) 2.27 K/mcL (0.10-0.90); Monocytes % (Auto) 33.5 % (1.0-12.0); Neutrophils % (Auto) 39.7 % (38.0-78.0); Platelet Count 113 K/mcL (140-440); RBC 3.41 M/mcL (3.59-5.38); Red Cell Distribution Width 19.3 % (11.5-14.5); WBC 6.8 K/mcL (4.5-11.0)
[2024-09-03 06:56] VITALS: O2SAT 94
[2024-09-03 07:14] LABS: ALT/SGPT 16 U/L (<40); AST/SGOT 20 U/L (<32); Albumin 3.5 gm/dL (3.2-5.2); Albumin/Globulin Ratio 1.6 (1.0-2.3); Alkaline Phosphatase 73 U/L (39-117); Bilirubin,Total 0.4 mg/dL (0.1-1.0); Blood Urea Nitrogen 11 mg/dL (8-23); Calcium 8.4 mg/dL (8.6-10.4); Carbon Dioxide 30 mmol/L (22-30); Chloride 93 mmol/L (96-108); Globulin 2.2 gm/dL (2.2-3.7); Glomerular Filtration Rate 69; Glucose 96 mg/dL (70-105); Potassium 3.8 mmol/L (3.3-5.1); Sodium 132 mmol/L (133-145)
[2024-09-03 11:50] VITALS: TEMP 97.9
== END 2024-09-03 15:19 | disposition home health service (06) | DRG 308 ==
LOC: ED 09:40 → ICU 13:46 → MEDSUR 09-02 16:38
PROVIDERS: ADMIT Internal Medicine; ATTEND Internal Medicine

== ENCOUNTER 2024-10-25 20:39 | Inpatient (IN) ==
[2024-10-25 21:59] LABS: Thyroid Stimulating Hormone 1.47 uIU/mL (0.27-5.01)
[2024-10-25 22:10] LABS: Basophils # (Auto) 0.22 K/mcL (0.00-0.30); Basophils % (Auto) 2.6 % (0.0-2.0); Eosinophils # (Auto) 0.03 K/mcL (0.00-0.70); Eosinophils % (Auto) 0.4 % (0.0-7.0); Hematocrit 34.1 % (34.1-44.9); Hemoglobin 11.8 g/dL (11.2-15.7); Lymphocytes # (Auto) 1.82 K/mcL (1.50-4.80); Lymphocytes % (Auto) 21.9 % (15.5-49.0); Mean Corpuscular HGB Conc 34.6 g/dL (31.0-36.0); Monocytes # (Auto) 2.25 K/mcL (0.10-0.90); Monocytes % (Auto) 27.0 % (1.0-12.0); Neutrophils % (Auto) 47.0 % (38.0-78.0); Platelet Count 102 K/mcL (140-440); RBC 3.61 M/mcL (3.59-5.38); WBC 8.3 K/mcL (4.5-11.0)
[2024-10-25 22:28] LABS: ALT/SGPT 20 U/L (<40); AST/SGOT 27 U/L (<32); Albumin 4.7 gm/dL (3.2-5.2); Albumin/Globulin Ratio 1.6 (1.0-2.3); Alkaline Phosphatase 83 U/L (39-117); Anion Gap 15.0 (8.0-16.0); Bilirubin,Total 0.5 mg/dL (0.1-1.0); Blood Urea Nitrogen 27 mg/dL (8-23); Calcium 9.3 mg/dL (8.6-10.4); Carbon Dioxide 19 mmol/L (22-30); Chloride 79 mmol/L (96-108); Globulin 3.0 gm/dL (2.2-3.7); Glucose 113 mg/dL (70-105); Potassium 5.6 mmol/L (3.3-5.1); Sodium 113 mmol/L (133-145)
[2024-10-25] MEDS: 0.9 % SODIUM CHLORIDE 500 ML IV ONE (23:03)
[2024-10-25] MEDS: SODIUM CHLORIDE 1 GM TABLET PO ONE (23:04)
[2024-10-25 23:43] LABS: Sodium, Urine Random 72 mmol/L
[2024-10-25 23:57] LABS: Bilirubin,Urine Negative (Negative); Color,Urine YELLOW; Glucose,Urine (UA) Negative (Negative); Ketones,Urine Negative (Negative); Leukocyte Esterase,Urine Negative /uL (Negative); Mucus,Urine FEW /hpf; PH,Urine 6.0 (5.0-9.0); Protein,Urine 100 mg/dL (Negative); Specific Gravity,Urine 1.009 (1.000-1.035); Urobilinogen,Urine Negative
[2024-10-26 00:23] LABS: Thyroid Stimulating Hormone 1.54 uIU/mL (0.27-5.01); Uric Acid 4.1 mg/dL (2.5-8.0)
[2024-10-26 01:10] LABS: Sodium 114 mmol/L (133-145)
[2024-10-26 06:55] LABS: Basophils # (Auto) 0.27 K/mcL (0.00-0.30); Basophils % (Auto) 3.5 % (0.0-2.0); Eosinophils # (Auto) 0.03 K/mcL (0.00-0.70); Eosinophils % (Auto) 0.4 % (0.0-7.0); Hematocrit 30.5 % (34.1-44.9); Hemoglobin 10.7 g/dL (11.2-15.7); Lymphocytes # (Auto) 1.93 K/mcL (1.50-4.80); Lymphocytes % (Auto) 25.3 % (15.5-49.0); Mean Corpuscular HGB Conc 35.1 g/dL (31.0-36.0); Monocytes # (Auto) 2.10 K/mcL (0.10-0.90); Monocytes % (Auto) 27.5 % (1.0-12.0); Neutrophils % (Auto) 42.5 % (38.0-78.0); Platelet Count 83 K/mcL (140-440); RBC 3.19 M/mcL (3.59-5.38); WBC 7.6 K/mcL (4.5-11.0)
[2024-10-26 07:18] LABS: ALT/SGPT 16 U/L (<40); AST/SGOT 22 U/L (<32); Albumin 4.0 gm/dL (3.2-5.2); Albumin/Globulin Ratio 1.5 (1.0-2.3); Alkaline Phosphatase 71 U/L (39-117); Anion Gap 14.0 (8.0-16.0); Bilirubin,Direct 0.2 mg/dL (<0.3); Bilirubin,Total 0.4 mg/dL (0.1-1.0); Blood Urea Nitrogen 24 mg/dL (8-23); Calcium 8.8 mg/dL (8.6-10.4); Carbon Dioxide 18 mmol/L (22-30); Chloride 82 mmol/L (96-108); Globulin 2.6 gm/dL (2.2-3.7); Glucose 87 mg/dL (70-105); Phosphorous 3.3 mg/dL (2.5-4.5); Potassium 4.9 mmol/L (3.3-5.1); Sodium 114 mmol/L (133-145); Triglycerides 35 mg/dL (<150); Uric Acid 3.8 mg/dL (2.5-8.0)
[2024-10-26] MEDS ORDERED: METOCLOPRAMIDE 10 MG/2 ML VIAL IV PRN (07:51)
[2024-10-26] MEDS ORDERED: POTASSIUM CHLORIDE 20 MEQ TABLET PO PRN ×2 (07:51)
[2024-10-26] MEDS ORDERED: IPRATROPIUM/ALBUTEROL 3 ML AMPUL.NEB NEB PRN (07:51)
[2024-10-26] MEDS ORDERED: METOPROLOL TARTRATE 5 MG/5 ML VIAL IV PRN (07:51)
[2024-10-26] MEDS ORDERED: ONDANSETRON 4 MG/2 ML VIAL IV PRN (07:51)
[2024-10-26] MEDS ORDERED: ACETAMINOPHEN 325 MG TABLET PO PRN (07:51)
[2024-10-26] MEDS ORDERED: POLYETHYLENE GLYCOL 3350 17 GM PACKET PO PRN (07:51)
[2024-10-26] MEDS ORDERED: POTASSIUM CHLORIDE 40 MEQ in DEXTROSE 5% IN WATER 500 ML IV PRN (07:51)
[2024-10-26] MEDS ORDERED: SENNOSIDES 1 TABLET PO PRN (07:51)
[2024-10-26] MEDS ORDERED: MAGNESIUM SULFATE 2 GM/50 ML BAG IV PRN (07:51)
[2024-10-26] MEDS: APIXABAN 5 MG TABLET PO SCH (08:32)
[2024-10-26] MEDS: LEVOTHYROXINE 75 MCG TABLET PO SCH (08:32)
[2024-10-26] MEDS: SODIUM CHLORIDE 1 GM TABLET PO SCH (08:32)
[2024-10-26] MEDS: DOCUSATE SODIUM 100 MG CAPSULE PO SCH (08:33)
[2024-10-26] MEDS ORDERED: SODIUM CHLORIDE 1 GM TABLET PO SCH (09:00)
[2024-10-26] MEDS: TIMOLOL 0.5% OPHTH DROPS BOTTLE 5ML OU SCH (09:05)
[2024-10-26 09:46] LABS: Sodium 114 mmol/L (133-145)
[2024-10-26] MEDS: SODIUM CHLORIDE 3 % 50 ML IV ONE ×2 (10:22→19:33)
[2024-10-26 14:02] LABS: Sodium 116 mmol/L (133-145)
[2024-10-26 18:05] LABS: Sodium 117 mmol/L (133-145)
[2024-10-26] MEDS: LATANOPROST OPHTH DROPS 2.5ML BOTTLE OU SCH (20:07)
[2024-10-26] MEDS: METOPROLOL TARTRATE 25 MG TABLET PO SCH (20:07)
[2024-10-26] MEDS ORDERED: DILTIAZEM 240 MG CAP.XL.24H PO PRN (20:30)
[2024-10-27 06:52] LABS: Basophils # (Auto) 0.17 K/mcL (0.00-0.30); Basophils % (Auto) 3.5 % (0.0-2.0); Eosinophils # (Auto) 0.03 K/mcL (0.00-0.70); Eosinophils % (Auto) 0.6 % (0.0-7.0); Hematocrit 31.0 % (34.1-44.9); Hemoglobin 10.6 g/dL (11.2-15.7); Lymphocytes # (Auto) 1.03 K/mcL (1.50-4.80); Lymphocytes % (Auto) 21.2 % (15.5-49.0); Mean Corpuscular HGB Conc 34.2 g/dL (31.0-36.0); Monocytes # (Auto) 1.50 K/mcL (0.10-0.90); Monocytes % (Auto) 30.9 % (1.0-12.0); Neutrophils % (Auto) 42.8 % (38.0-78.0); Platelet Count 87 K/mcL (140-440); RBC 3.20 M/mcL (3.59-5.38); WBC 4.9 K/mcL (4.5-11.0)
[2024-10-27 07:28] LABS: ALT/SGPT 16 U/L (<40); AST/SGOT 23 U/L (<32); Albumin 3.8 gm/dL (3.2-5.2); Albumin/Globulin Ratio 1.4 (1.0-2.3); Alkaline Phosphatase 67 U/L (39-117); Anion Gap 12.0 (8.0-16.0); Bilirubin,Direct 0.2 mg/dL (<0.3); Bilirubin,Total 0.5 mg/dL (0.1-1.0); Blood Urea Nitrogen 24 mg/dL (8-23); Calcium 8.7 mg/dL (8.6-10.4); Carbon Dioxide 17 mmol/L (22-30); Chloride 91 mmol/L (96-108); Globulin 2.7 gm/dL (2.2-3.7); Glucose 92 mg/dL (70-105); Phosphorous 3.5 mg/dL (2.5-4.5); Potassium 5.0 mmol/L (3.3-5.1); Sodium 120 mmol/L (133-145); Triglycerides 36 mg/dL (<150); Uric Acid 4.4 mg/dL (2.5-8.0)
[2024-10-27] MEDS: SODIUM BICARBONATE 650 MG TABLET PO SCH (08:32)
[2024-10-27] MEDS: SODIUM CHLORIDE 3 % 50 ML IV ONE (08:33)
[2024-10-27] MEDS: METOPROLOL TARTRATE 25 MG TABLET PO SCH (10:01)
[2024-10-27 14:33] LABS: Sodium 125 mmol/L (133-145)
[2024-10-28 06:39] LABS: ALT/SGPT 15 U/L (<40); AST/SGOT 20 U/L (<32); Albumin 3.8 gm/dL (3.2-5.2); Albumin/Globulin Ratio 1.7 (1.0-2.3); Alkaline Phosphatase 65 U/L (39-117); Anion Gap 11.0 (8.0-16.0); Bilirubin,Direct 0.2 mg/dL (<0.3); Bilirubin,Total 0.4 mg/dL (0.1-1.0); Blood Urea Nitrogen 24 mg/dL (8-23); Calcium 8.8 mg/dL (8.6-10.4); Carbon Dioxide 19 mmol/L (22-30); Chloride 97 mmol/L (96-108); Globulin 2.2 gm/dL (2.2-3.7); Glucose 90 mg/dL (70-105); Phosphorous 3.1 mg/dL (2.5-4.5); Potassium 4.9 mmol/L (3.3-5.1); Sodium 127 mmol/L (133-145); Triglycerides 27 mg/dL (<150); Uric Acid 5.1 mg/dL (2.5-8.0)
[2024-10-28] MEDS: SODIUM BICARBONATE 650 MG TABLET PO SCH (08:50)
[2024-10-28] MEDS: FUROSEMIDE 40 MG TABLET PO SCH (08:52)
[2024-10-28 14:24] LABS: Sodium 131 mmol/L (133-145)
[2024-10-29 06:55] LABS: Anion Gap 14.0 (8.0-16.0); Blood Urea Nitrogen 28 mg/dL (8-23); Calcium 9.1 mg/dL (8.6-10.4); Carbon Dioxide 21 mmol/L (22-30); Chloride 97 mmol/L (96-108); Glucose 114 mg/dL (70-105); Potassium 4.3 mmol/L (3.3-5.1); Sodium 132 mmol/L (133-145)
[2024-10-29 12:36] VITALS: TEMP 98.1; O2SAT 100
== END 2024-10-29 13:03 | disposition home or self-care (01) | DRG 644 ==
LOC: ED 20:39 → ICU 23:51
PROVIDERS: ADMIT Internal Medicine; ATTEND Internal Medicine